=== PATIENT | male | born 1970 | race Caucasian/White ===

== ENCOUNTER 2019-06-15 09:32 | Inpatient (IN) ==
[2019-06-15] MEDS ORDERED: *HR* Heparin 5,000 UNIT/ML VIAL ONE (09:53)
[2019-06-15] MEDS ORDERED: Aspirin 81 MG TAB.CHEW ONE (09:53)
[2019-06-15] MEDS ORDERED: *HR* Ticagrelor 90 MG TABLET ONE (09:53)
[2019-06-15] MEDS ORDERED: 0.9 % Sodium Chloride 1,000 ML ONE ×2 (09:53→10:06)
[2019-06-15] MEDS ORDERED: Aspirin 81 MG TAB.CHEW PO ONE (09:58)
[2019-06-15] MEDS ORDERED: *HR* Midazolam HCl 2 MG/2 ML VIAL ONE (10:06)
[2019-06-15] MEDS ORDERED: *HR* Heparin 10,000 UNIT/10 ML VIAL ONE (10:06)
[2019-06-15] MEDS ORDERED: *HR* FentaNYL (PF) 100 MCG/2 ML VIAL ONE (10:06)
[2019-06-15] MEDS ORDERED: Heparin 1,000 UNITS/500 mL 500 ML ONE (10:06)
[2019-06-15] MEDS ORDERED: Nitroglycerin 1,000 MCG/10 ML VIAL IV ONE (10:06)
[2019-06-15] MEDS ORDERED: Iopamidol 125 ML INFUS..BTL ONE (10:06)
[2019-06-15 10:14] LABS: Basophils # 0.1 K/mcL (0.0-0.2); Basophils % 0.4 %; Eosinophils # 0.5 K/mcL (0.0-0.6); Eosinophils % 3.4 %; Hematocrit 35.2 % (37.5-50.1); Hemoglobin 11.1 g/dL (12.9-16.9); Immature Granulocytes % 1.4 % (0-4); Lymphocytes # 0.8 K/mcL (0.6-4.6); Mean Corpuscular HGB Conc 31.5 g/dL (31.6-35.5); Mean Corpuscular Hemoglobin 29.4 pg (28.0-33.3); Mean Corpuscular Volume 93.1 fL (83.0-100.0); Mean Platelet Volume 8.3 fL (9.4-12.4); Monocytes # 1.2 K/mcL (0.0-1.3); Neutrophils # 10.9 K/mcL (1.6-8.9); Platelet Count 382 K/mcL (140-400); Red Blood Count 3.78 M/mcL (4.19-5.50); Segmented Neutrophils % 79.8 %; White Blood Count 13.7 K/mcL (4.3-11.1)
[2019-06-15] MEDS ORDERED: Tirofiban 12.5 MG/250ML 12.5 MG/250 ML BAG ONE (10:17)
[2019-06-15 10:23] LABS: Prothrombin Time 10.9 Seconds (9.4-12.1)
[2019-06-15 10:26] LABS: Activated Partial Thrombo Time 35.9 Seconds (26.0-36.0)
[2019-06-15] MEDS ORDERED: *HR* Heparin 5,000 UNIT/ML VIAL IVP ONE (10:27)
[2019-06-15] MEDS ORDERED: *HR* Heparin 5,000 UNIT/ML VIAL IVP PRN ×2 (10:27)
[2019-06-15] MEDS ORDERED: Heparin 25,000 UNIT/250 ML D5W 25,000 UNIT/250 ML IV.SOLN IVC ONE (10:30)
[2019-06-15 10:33] LABS: BUN/Creatinine Ratio 25 (6-26); Blood Urea Nitrogen 29 mg/dL (6-20); Calcium 10.6 mg/dL (8.6-10.3); Carbon Dioxide 24 mEq/L (23-29); Chloride 107 mEq/L (98-107); Glucose 113 mg/dL (70-105); Magnesium 2.3 mg/dL (1.6-2.6); Osmolality,Calculated 293 (280-300); Potassium 4.8 mEq/L (3.5-5.1); Sodium 138 mEq/L (136-145); Troponin I < 0.03 ng/mL (< 0.04); eGFR For African Americans > 60 (> 60); eGFR For Non-African Americans > 60 (> 60)
[2019-06-15] MEDS: Heparin 25,000 UNIT/250 ML D5W 25,000 UNIT/250 ML IV.SOLN IVC SCH (10:38)
--- NOTE | 2019-06-15 10:42 | Emergency Department Note ---
Disposition Clinical Impression: Acute electrocardiogram changes [place] toxicity Qualifiers: Encounter type: sequela Injury intent: undetermined intent Qualified Code(s): T56.894S - Toxic effect of other metals, undetermined, sequela Disposition: Admitted As Inpatient Condition: Fair Time of Disposition: 13:56 General Adult HPI - General Chief complaint: ED Neuro Symptoms/Deficit Stated complaint: AMS Time Seen by Provider: 06/15/19 09:40 Source: patient, other Mode of arrival: wheelchair Limitations: no limitations Nursing Notes Reviewed: Yes Vital Signs Reviewed: Yes - History of Present Illness HPI Narrative: Patient is a 48-year-old male that presents the emergency department with reports of not acting his usual self and complaining of abdominal and chest pain. Patient was seen at urgent care and was transferred here to the emergency department. The patient has a history of MRDD is unable to provide any significant history. The employee of the [place] [facility] that he states that stated that this morning he was not acting himself and was not getting ready for the day like he usually did. When asked if he is having any pain the patient puts his hand over his chest. It is also reported from the staff that he had been complaining of abdominal pain. Also reported that he has had some urinary incontinence. Patient does have a history of seizures and schizophrenia and does have episodes where he stares off and does not respond to staff at his [place] [facility]. Pain Scale: 4 - Related Data Home Medications Medication Instructions Recorded Confirmed Famotidine [Pepcid] 20 mg PO BID 05/30/15 01/03/18 Ferrous Sulfate 325 mg PO BID 05/30/15 01/03/18 Folic Acid 1 mg PO DAILY 05/30/15 01/03/18 Haloperidol [Haldol] 5 mg PO DAILY PRN 05/30/15 01/03/18 Lisinopril [Prinivil] 10 mg PO DAILY 05/30/15 01/03/18 Oxybutynin [Ditropan] 5 mg PO BID 05/30/15 01/03/18 Pravastatin Sodium [Pravachol] 80 mg PO DAILY 05/30/15 01/03/18 Acetaminophen [Tylenol] 650 mg PO Q4H PRN 01/03/18 01/03/18 BuPROPion XL (24 HR) [Wellbutrin 300 mg PO DAILY 03/15/18 08/25/19 Xl] Cetirizine HCl [Zyrtec] 10 mg PO DAILY 01/03/18 06/15/19 Cholecalciferol (D-3) [Vitamin D] 2,000 unit PO DAILY 01/03/18 01/03/18 Haloperidol Decanoate [Haldol 100 mg IM Q2W 01/03/18 01/03/18 Decanoate 100] Ibuprofen [Motrin Ib] 400 mg PO Q4H PRN 01/03/18 01/03/18 L. Rhamnosus GG/Inulin [Culturelle 1 tab PO DAILY 01/03/18 01/03/18 Capsule] [place] Carbonate 600 mg PO BID 01/03/18 01/03/18 Loperamide [Imodium] 2 mg PO DAILY PRN 01/03/18 01/03/18 Mag Hydrox/Al Hydrox/Simeth [Adv 30 ml PO 6XD 01/03/18 01/03/18 Antacid-Antigas Liquid] OLANZapine [Zyprexa] 5 mg PO QAM 01/03/18 01/03/18 OLANZapine [Zyprexa] 15 mg PO HS 01/03/18 01/03/18 OXcarbazepine [Oxcarbazepine] 600 mg PO BID 01/03/18 01/03/18 Polyethylene Glycol 3350 [MiraLAX 1 scoop PO DAILY 01/03/18 01/03/18 Powder Bulk 17.9 Oz] Previous Rx's Medication Instructions Recorded Docusate Sodium [Colace] 100 mg PO BID #14 capsule 03/19/16 Allergies Allergy/AdvReac Type Severity Reaction Status Date / Time No Known Allergies Allergy Verified 05/30/15 21:53 All systems ED: reviewed and negative except as stated. Limitations: ROS unobtainable due to patients medical condition Constitutional: Denies: fever Cardiovascular: Reports: chest pain Past Medical History - Past Medical History Medical history: Reports: asthma, diabetes, GERD, hyperlipidemia, hypertension, seizures Psychiatric history: Reports: depression, schizophrenia - Social History Smoking Status: Current every day smoker Smokeless Tobacco Status: No Alcohol use: Reports: unknown Drug use: Reports: none Physical Exam - General Limitations: no limitations General appearance: alert, in no apparent distress - Head Head exam: atraumatic, normocephalic - Eye Eye exam: Present: normal appearance, EOMI - Neck Neck exam: Present: normal inspection, full ROM, trachea midline - Respiratory Respiratory exam: Present: normal lung sounds bilaterally. Absent: respiratory distress, wheezes - Cardiovascular Cardiovascular exam: Present: regular rate, normal rhythm, normal heart sounds, +S1, +S2 - Abdominal Exam Abdominal exam: Present: soft, Non-Tender, normal bowel sounds - Neurological Exam Neurological exam: Present: alert, oriented X3 - Psychiatric Psychiatric exam: Present: normal affect, normal mood - Skin Skin exam: Present: warm, dry, intact Course Vital Signs Temperature 98.6 F 06/15/19 09:36 Pulse Rate 77 06/15/19 09:36 Respiratory Rate 19 06/15/19 09:36 Blood Pressure 125/75 06/15/19 09:36 O2 Sat by Pulse Oximetry 99 06/15/19 09:36 Temperature 98.6 F 06/15/19 09:54 Pulse Rate 73 06/15/19 13:00 Respiratory Rate 17 06/15/19 13:00 Blood Pressure 117/72 06/15/19 13:00 O2 Sat by Pulse Oximetry 95 06/15/19 13:00 Oxygen Delivery Oxygen Delivery Room Air Medical Decision Making - MDM Narrative Medical decision making narrative: Due the patient is not emergency Department with reports of chest pain and EKG was obtained at triage which was concerning for possible STEMI. STEMI alert was called. Dr. Conteh was contacted and he came and evaluated the patient and did not feel that at this time the patient needed to go to the Embryology Teacher emergently but would review the patient's labs and potentially take him for a diagnostic catheter later today. Patient received aspirin and heparin at the recommendation of cardiology. Further laboratory testing and chest x-ray will be obtained. Patient checks x-ray shows a groundglass appearance which could be an underlying pneumonitis. The dot compliance specialist and requested that a repeat troponin was obtained at 1400. This was placed in [facility]. The patient does have an elevated lithium level 2.0. This is discussed with nephrology did not feel that he needed to be dialyzed at this time and recommended just hydration. Patient will be admitted to the medical service and nephrology has been consulted. Patient does have a mild leukocytosis and a chronic anemia. Called and spoke with the admitting hospitalist Dr. Bermoe who had reviewed the case and had spoken to cardiology and has accepted the patient to their service. Patient be admitted to the hospital this time for further evaluation and management. - Medical Records Medical records reviewed: Yes I reviewed the patient's medical records. - Lab Data Lab results reviewed: Yes I reviewed the patient's lab results. Result diagrams: 06/15/19 09:50 06/15/19 09:50 Lab Results 06/15/19 06/15/19 06/15/19 Range/Units 09:50 09:50 09:50 WBC 13.7 H (4.3-11.1) K/mcL RBC 3.78 L (4.19-5.50) M/mcL Hgb 11.1 L (12.9-16.9) g/dL Hct 35.2 L (37.5-50.1) % MCV 93.1 (83.0-100.0) fL MCH 29.4 (28.0-33.3) pg MCHC 31.5 L (31.6-35.5) g/dL RDW 15.0 H (11.5-14.5) % Plt Count 382 (140-400) K/mcL MPV 8.3 L (9.4-12.4) fL Immature Gran % 1.4 (0-4) % Seg Neutrophils % 79.8 % Lymphocytes % 6.0 % Monocytes % 9.0 % Eosinophils % 3.4 % Basophils % 0.4 % Neutrophils # 10.9 H (1.6-8.9) K/mcL Lymphocytes # 0.8 (0.6-4.6) K/mcL Monocytes # 1.2 (0.0-1.3) K/mcL Eosinophils # 0.5 (0.0-0.6) K/mcL Basophils # 0.1 (0.0-0.2) K/mcL PT 10.9 (9.4-12.1) Seconds INR 1.0 APTT 35.9 (26.0-36.0) Seconds Heparin Anti-Xa, Unfract (0.30-0.70) IU/mL Sodium 138 (136-145) mEq/L Potassium 4.8 (3.5-5.1) mEq/L Chloride 107 (98-107) mEq/L Carbon Dioxide 24 (23-29) mEq/L BUN 29 H (6-20) mg/dL Creatinine 1.15 (0.70-1.30) mg/dL Est GFR ( Amer) > 60 (> 60) Est GFR (Non-Af Amer) > 60 (> 60) BUN/Creatinine Ratio 25 (6-26) Glucose 113 H (70-105) mg/dL Calculated Osmolality 293 (280-300) Lactic Acid (0.5-2.2) mmol/L Calcium 10.6 H (8.6-10.3) mg/dL Magnesium 2.3 (1.6-2.6) mg/dL Troponin I < 0.03 (< 0.04) ng/mL Procalcitonin (0.00-0.15) ng/mL TSH 6.154 H (0.340-5.600) mcIU/mL Free T4 0.68 L (0.70-2.00) ng/dl Free T3 2.69 (2.50-3.90) pg/mL Total T3 1.02 (0.87-1.78) ng/mL Urine Color (Yellow) Urine Clarity (Clear) Urine pH (5.0-8.0) pH Units Ur Specific [place] (1.010-1.025) Urine Protein (Neg-Trace) mg/dL Urine Glucose (UA) (Normal) mg/dL Urine Ketones (Negative) mg/dL Urine Blood (Negative) Urine Nitrite (Negative) Urine Bilirubin (Negative) Urine Urobilinogen (Normal) mg/dL Ur Leukocyte Esterase (Negative) Urine Microscopic RBC (0-3) per hpf Urine Microscopic WBC (0-3) per hpf Ur Squamous Epith Cells (None-Few) per lpf Urine Bacteria (None-Few) per hpf Hyaline Casts (None-Few) per lpf Ur Culture Indicated? (NO) [place] (0.6-1.2) mEq/L 06/15/19 06/15/19 06/15/19 Range/Units 09:50 09:50 09:50 WBC (4.3-11.1) K/mcL RBC (4.19-5.50) M/mcL Hgb (12.9-16.9) g/dL Hct (37.5-50.1) % MCV (83.0-100.0) fL MCH (28.0-33.3) pg MCHC (31.6-35.5) g/dL RDW (11.5-14.5) % Plt Count (140-400) K/mcL MPV (9.4-12.4) fL Immature Gran % (0-4) % Seg Neutrophils % % Lymphocytes % % Monocytes % % Eosinophils % % Basophils % % Neutrophils # (1.6-8.9) K/mcL Lymphocytes # (0.6-4.6) K/mcL Monocytes # (0.0-1.3) K/mcL Eosinophils # (0.0-0.6) K/mcL Basophils # (0.0-0.2) K/mcL PT (9.4-12.1) Seconds INR APTT (26.0-36.0) Seconds Heparin Anti-Xa, Unfract 0.04 L (0.30-0.70) IU/mL Sodium (136-145) mEq/L Potassium (3.5-5.1) mEq/L Chloride (98-107) mEq/L Carbon Dioxide (23-29) mEq/L BUN (6-20) mg/dL Creatinine (0.70-1.30) mg/dL Est GFR ( Amer) (> 60) Est GFR (Non-Af Amer) (> 60) BUN/Creatinine Ratio (6-26) Glucose (70-105) mg/dL Calculated Osmolality (280-300) Lactic Acid 1.1 (0.5-2.2) mmol/L Calcium (8.6-10.3) mg/dL Magnesium (1.6-2.6) mg/dL Troponin I (< 0.04) ng/mL Procalcitonin < 0.02 (0.00-0.15) ng/mL TSH (0.340-5.600) mcIU/mL Free T4 (0.70-2.00) ng/dl Free T3 (2.50-3.90) pg/mL Total T3 (0.87-1.78) ng/mL Urine Color (Yellow) Urine Clarity (Clear) Urine pH (5.0-8.0) pH Units Ur Specific [place] (1.010-1.025) Urine Protein (Neg-Trace) mg/dL Urine Glucose (UA) (Normal) mg/dL Urine Ketones (Negative) mg/dL Urine Blood (Negative) Urine Nitrite (Negative) Urine Bilirubin (Negative) Urine Urobilinogen (Normal) mg/dL Ur Leukocyte Esterase (Negative) Urine Microscopic RBC (0-3) per hpf Urine Microscopic WBC (0-3) per hpf Ur Squamous Epith Cells (None-Few) per lpf Urine Bacteria (None-Few) per hpf Hyaline Casts (None-Few) per lpf Ur Culture Indicated? (NO) [place] 2.0 H* (0.6-1.2) mEq/L 06/15/19 Range/Units 10:20 WBC (4.3-11.1) K/mcL RBC (4.19-5.50) M/mcL Hgb (12.9-16.9) g/dL Hct (37.5-50.1) % MCV (83.0-100.0) fL MCH (28.0-33.3) pg MCHC (31.6-35.5) g/dL RDW (11.5-14.5) % Plt Count (140-400) K/mcL MPV (9.4-12.4) fL Immature Gran % (0-4) % Seg Neutrophils % % Lymphocytes % % Monocytes % % Eosinophils % % Basophils % % Neutrophils # (1.6-8.9) K/mcL Lymphocytes # (0.6-4.6) K/mcL Monocytes # (0.0-1.3) K/mcL Eosinophils # (0.0-0.6) K/mcL Basophils # (0.0-0.2) K/mcL PT (9.4-12.1) Seconds INR APTT (26.0-36.0) Seconds Heparin Anti-Xa, Unfract (0.30-0.70) IU/mL Sodium (136-145) mEq/L Potassium (3.5-5.1) mEq/L Chloride (98-107) mEq/L Carbon Dioxide (23-29) mEq/L BUN (6-20) mg/dL Creatinine (0.70-1.30) mg/dL Est GFR ( Amer) (> 60) Est GFR (Non-Af Amer) (> 60) BUN/Creatinine Ratio (6-26) Glucose (70-105) mg/dL Calculated Osmolality (280-300) Lactic Acid (0.5-2.2) mmol/L Calcium (8.6-10.3) mg/dL Magnesium (1.6-2.6) mg/dL Troponin I (< 0.04) ng/mL Procalcitonin (0.00-0.15) ng/mL TSH (0.340-5.600) mcIU/mL Free T4 (0.70-2.00) ng/dl Free T3 (2.50-3.90) pg/mL Total T3 (0.87-1.78) ng/mL Urine Color Yellow (Yellow) Urine Clarity Clear (Clear) Urine pH 6.5 (5.0-8.0) pH Units Ur Specific [place] 1.014 (1.010-1.025) Urine Protein Negative (Neg-Trace) mg/dL Urine Glucose (UA) Normal (Normal) mg/dL Urine Ketones Negative (Negative) mg/dL Urine Blood Small H (Negative) Urine Nitrite Negative (Negative) Urine Bilirubin Negative (Negative) Urine Urobilinogen Normal (Normal) mg/dL Ur Leukocyte Esterase Negative (Negative) Urine Microscopic RBC 5-15 H (0-3) per hpf Urine Microscopic WBC 0-3 (0-3) per hpf Ur Squamous Epith Cells Moderate H (None-Few) per lpf Urine Bacteria None Seen (None-Few) per hpf Hyaline Casts None Seen (None-Few) per lpf Ur Culture Indicated? NO (NO) [place] (0.6-1.2) mEq/L - Radiology Data Radiology results reviewed: Yes I reviewed the patient's radiology results. Chest X-Ray 06/15/19 10:25 IMPRESSION: Cardiomegaly with mild asymmetric ground-glass opacification at the left lung base. Pattern suspected to represent asymmetric edema or atelectasis. Underlying pneumonitis would be considered less likely. D/ / Frandy Johnson MD / Frandy Johnson MD Interpreting Provider: Frandy Johnson MD Head CT 06/15/19 10:52 IMPRESSION: 1. No acute intracranial abnormality. 2. New right mastoid effusion with unchanged left mastoid effusion. Unchanged ethmoid sinus disease. D/ / Lb Jorge MD / Lb Jorge MD Interpreting Provider: Lb Jorge MD - EKG Data EKG #1 EKG attestation: Yes I reviewed and interpreted this EKG. EKG results narrative: Patient's EKG showed a sinus rhythm with a right bundle branch block and rate of 76 bpm, DE interval 197, curious duration 155, QTC of 463. There is ST elevations in 2, 3, aVF, V4, V5. This is compared to previous EKG Attestation Statement - Attestation Attestation: I, Cristian Bradford, examined this patient and my medical decision-making was reviewed with the ROR ENGINEER/PA/Advanced Practice Nurse/Resident Physician. I agree with the documented findings, disposition and treatment plan as described except to the extent set forth below. 48-year-old male presents emergency Department with concerns of altered mental status. Patient is from a [place] [facility] and is generally able to ambulate and dress himself. Over the past few days he has had increasing confusion. Today they noticed that he has had incontinence of urine over the night, he has been more confused than his baseline. On initial evaluation the patient had EKG that showed ST elevations in the inferior and lateral leads without corresponding ST depressions. When asked about chest pain the patient grabbed his chest, he had been nauseated and vomited a couple times during the morning prior to arrival. A STEMI alert was activated, cardiology evaluated the patient at bedside and believe that this is did not meet STEMI criteria however patient does have risk factors and will likely need heart catheterization in the near future. Initial troponin returned negative. Vital signs remained stable. Patient has an elevated lithium level which could cause the EKG changes as well as the patient's altered mental status. Patient does not have renal failure. I spoke with the programming equipment operator, Dr. Matta who recommended hydration with IV fluids and reevaluation and that the patient did not need dialysis at this time. Patient will be admitted to the hospitalist for further care and evaluation.
[2019-06-15 11:13] LABS: Bilirubin,Urine Negative (Negative); Blood,Urine Small (Negative); Clarity,Urine Clear (Clear); Color,Urine Yellow (Yellow); Glucose,Urine (UA) Normal (Normal); Ketones,Urine Negative (Negative); Leukocyte Esterase,Urine Negative (Negative); Nitrite,Urine Negative (Negative); PH,Urine 6.5 pH Units (5.0-8.0); Protein,Urine Negative (Neg-Trace); Specific Gravity,Urine 1.014 (1.010-1.025); Urobilinogen,Urine Normal (Normal)
[2019-06-15 11:15] LABS: Bacteria,Urine None Seen per hpf (None-Few); Hyaline Casts,Urine None Seen per lpf (None-Few); Squamous Epithelial Cell,Urine Moderate per lpf (None-Few); WBC,Urine 0-3 per hpf (0-3)
[2019-06-15 11:33] LABS: Procalcitonin < 0.02 ng/mL (0.00-0.15)
--- NOTE | 2019-06-15 11:34 | Cardiology Consult Note ---
Date of Encounter: 06/15/19 Time of Encounter: 11:29 Assessment and Plan (1) Chest pain Current Visit: Yes Status: Acute Altered mental status over the last 3 days with some tinting of pain generalized and specifically chest pain in the setting of a slightly worsened EKG from an ischemic standpoint but no criteria for ST elevation by cardiac infarction. With negative troponin after 3 days of generalized unwellness the emergency department would rather workup further possibilities of sepsis. A repeat troponin 3 hours will be obtained and if elevated or if patient's clinical course changes in regards to EKG changes or worsening chest pain patient will be taken emergently to the cardiac [facility] [employer]. He will remain nothing by mouth at this time. Last question of chest pain patient denied any at bedside with caregiver at side. Qualifiers: Chest pain type: unspecified Qualified Code(s): R07.9 - Chest pain, unspecified Discussion w patient/family: The assessment and plan as outlined above was discussed with the patient and/or family members who expressed understanding and agreement. All questions were answered. Thank you for involving us in the care of your patient. Please call with any questions. History of Present Illness Consult date: 06/15/19 Consult reason: Abnormal EKG Chief complaint: Chest Pain History of present illness: Mr. Boucher is a 48 year old male was history of MR is a poor historian with multiple comorbidities including diet-controlled diabetes, hypertension, hyperlipidemia who presents to the emergency department after not being himself slightly more altered in regards to his mental status over the last 3 days at times complaining of chest pain according to caregivers at bedside. Patient is EKG shows right bundle branch block with slightly more prominent ST changes from baseline. There is no significant criteria for an ST elevation myocardial infarction at this time. Patient was asked multiple times if he had chest pain at bedside and denied. Initially patient was to be taken immediately to the cardiac [facility] however further discussion with [facility] department in regards to an elevated white blood count and is feeling unwellness over the last 3 days prompted a sepsis panel and further workup especially in the setting of a returned negative troponin. I am asked emergency department to repeat a t roponin in 3 hours and if abnormal patient will be taken to the cardiac catheter lab if not contraindicated by the workup for his possible sepsis. Past Med Surg Social Fam HX - Past Medical History Medical history: asthma, diabetes, GERD, hyperlipidemia, hypertension, seizures Additional medical history: mild intellectual disability. Vit D Deficiency. schizophrenia. Urinary Frequency/OAB. Asthma. KYRA. Consipation. Dry eyes. Depression Psychiatric history: depression, schizophrenia - Past Surgical History Additional surgical history: toe unsure. right leg 2009. tonsillectomy as child. umbilical hernia repair 2009. appendectomy 2011. appendectomy and right hemicoletomy 2012. incisional hernia repair 2013 - Social History Smoking Status: Current every day smoker Smokeless Tobacco Status: No Alcohol use: unknown Drug use: none Medications and Allergies Famotidine [Pepcid] 20 mg PO BID 05/30/15 [History] Ferrous Sulfate 325 mg PO BID 05/30/15 [History] Folic Acid 1 mg PO DAILY 05/30/15 [History] Haloperidol [Haldol] 5 mg PO DAILY PRN 05/30/15 [History] Lisinopril [Prinivil] 10 mg PO DAILY 05/30/15 [History] Oxybutynin [Ditropan] 5 mg PO BID 05/30/15 [History] Pravastatin Sodium [Pravachol] 80 mg PO DAILY 05/30/15 [History] Docusate Sodium [Colace] 100 mg PO BID #14 capsule 03/19/16 [Rx] Acetaminophen [Tylenol] 650 mg PO Q4H PRN 01/03/18 [History] BuPROPion XL (24 HR) [Wellbutrin Xl] 300 mg PO DAILY 01/03/18 [History] Cetirizine HCl [Zyrtec] 10 mg PO DAILY 01/03/18 [History] Cholecalciferol (D-3) [Vitamin D] 2,000 unit PO DAILY 01/03/18 [History] Haloperidol Decanoate [Haldol Decanoate 100] 100 mg IM Q2W 01/03/18 [History] Ibuprofen [Motrin Ib] 400 mg PO Q4H PRN 01/03/18 [History] L. Rhamnosus GG/Inulin [Culturelle Capsule] 1 tab PO DAILY 01/03/18 [History] [place] Carbonate 600 mg PO BID 01/03/18 [History] Loperamide [Imodium] 2 mg PO DAILY PRN 01/03/18 [History] Mag Hydrox/Al Hydrox/Simeth [Adv Antacid-Antigas Liquid] 30 ml PO 6XD 01/03/18 [History] OLANZapine [Zyprexa] 5 mg PO QAM 01/03/18 [History] OLANZapine [Zyprexa] 15 mg PO HS 01/03/18 [History] OXcarbazepine [Oxcarbazepine] 600 mg PO BID 01/03/18 [History] Polyethylene Glycol 3350 [MiraLAX Powder Bulk 17.9 Oz] 1 scoop PO DAILY 01/03/18 [History] Allergy/AdvReac Type Severity Reaction Status Date / Time No Known Allergies Allergy Verified 05/30/15 21:53 All Systems Review: The remainder of the systems were reviewed and are negative Physical Examination Vital Signs, Last 4 Hours Temp Pulse Resp BP Pulse Ox 06/15/19 10:44 98 06/15/19 10:30 70 15 111/78 99 06/15/19 10:27 72 10 115/76 97 06/15/19 10:00 80 20 121/75 96 06/15/19 09:54 98.6 F 77 19 125/75 98 06/15/19 09:52 77 19 125/75 98 06/15/19 09:50 72 120/68 06/15/19 09:36 98.6 F 77 19 125/75 99 General: Conversant, No Apparent Distress HEENT: Atraumatic, Normocephaly, Mucus Membranes Moist Neck: No JVD, Normal carotid pulses Cardiac: Reg Rate and Rhythm, Normal S1 and S2, No Murmur Lungs: Normal Breath Sounds, No Wheeze, Rales, Rhonchi Neuro: Alert and responsive, No focal deficits noted Abdomen: Soft, Non-Tender Skin: No rashes noted on visualized skin Musculoskeletal: No Chest Wall Tenderness Extremities: No Clubbing, No Cyanosis, No Edema, Normal Pulses Results 06/15/19 09:50 06/15/19 09:50 Lab Results 06/15/19 06/15/19 06/15/19 09:50 09:50 09:50 WBC 13.7 H Hgb 11.1 L Hct 35.2 L Plt Count 382 INR 1.0 APTT 35.9 Sodium 138 Potassium 4.8 Chloride 107 Carbon Dioxide 24 BUN 29 H Creatinine 1.15 Glucose 113 H Calcium 10.6 H Magnesium 2.3 Troponin I < 0.03 Consult Discharge Plan - Plan
[2019-06-15] MEDS ORDERED: 0.9 % Sodium Chloride 1,000 ML IVC ONE (12:01)
[2019-06-15 12:30] LABS: Thyroid Stimulating Hormone 6.154 mcIU/mL (0.340-5.600)
[2019-06-15 12:33] LABS: Triiodothyronine (T3) Free 2.69 pg/mL (2.50-3.90)
[2019-06-15 12:37] LABS: Triiodothyronine (T3) Total 1.02 ng/mL (0.87-1.78)
[2019-06-15] MEDS ORDERED: Nitroglycerin 0.4 MG TAB.SUBL SL PRN (14:09)
[2019-06-15] MEDS ORDERED: Naloxone 0.4 MG/ML INJ IVP PRN (14:10)
[2019-06-15] MEDS ORDERED: *HR* LORazepam 2 MG/ML VIAL IVP PRN (14:43)
--- NOTE | 2019-06-15 15:20 | Internal Med History&Physical ---
<Anne Puri - Last Filed: 06/15/19 16:31> Date of Encounter: 06/15/19 Internal Medicine - H&P: HPI History of present illness: Mr. Boucher is a 48 year old male Internal Medicine - H&P: Meds Famotidine [Pepcid] 20 mg PO BID 05/30/15 [History] Ferrous Sulfate 325 mg PO BID 05/30/15 [History] Folic Acid 1 mg PO DAILY 05/30/15 [History] Haloperidol [Haldol] 5 mg PO DAILY PRN 05/30/15 [History] Lisinopril [Prinivil] 10 mg PO DAILY 05/30/15 [History] Oxybutynin [Ditropan] 5 mg PO BID 05/30/15 [History] Pravastatin Sodium [Pravachol] 80 mg PO DAILY 05/30/15 [History] Docusate Sodium [Colace] 100 mg PO BID #14 capsule 03/19/16 [Rx] Acetaminophen [Tylenol] 650 mg PO Q4H PRN 01/03/18 [History] BuPROPion XL (24 HR) [Wellbutrin Xl] 300 mg PO DAILY 01/03/18 [History] Cetirizine HCl [Zyrtec] 10 mg PO DAILY 01/03/18 [History] Cholecalciferol (D-3) [Vitamin D] 2,000 unit PO DAILY 01/03/18 [History] Haloperidol Decanoate [Haldol Decanoate 100] 100 mg IM Q2W 01/03/18 [History] Ibuprofen [Motrin Ib] 400 mg PO Q4H PRN 01/03/18 [History] L. Rhamnosus GG/Inulin [Culturelle Capsule] 1 tab PO DAILY 01/03/18 [History] Eugenio Saenz Carbonate 600 mg PO BID 01/03/18 [History] Loperamide [Imodium] 2 mg PO DAILY PRN 01/03/18 [History] Mag Hydrox/Al Hydrox/Simeth [Adv Antacid-Antigas Liquid] 30 ml PO 6XD 01/03/18 [History] OLANZapine [Zyprexa] 5 mg PO QAM 01/03/18 [History] OLANZapine [Zyprexa] 15 mg PO HS 01/03/18 [History] OXcarbazepine [Oxcarbazepine] 600 mg PO BID 01/03/18 [History] Polyethylene Glycol 3350 [MiraLAX Powder Bulk 17.9 Oz] 1 scoop PO DAILY 01/03/18 [History] Allergy/AdvReac Type Severity Reaction Status Date / Time No Known Allergies Allergy Verified 05/30/15 21:53 All Systems PM: A 10-system review of systems was performed and is negative for pertinent findings except as documented above in the HPI. - Constitutional Vitals: Temp Pulse Resp BP Pulse Ox 98.6 F 82 14 126/81 96 06/15/19 09:54 06/15/19 16:21 06/15/19 16:21 06/15/19 16:21 06/15/19 16:21 Internal Med - H&P Results - Labs CBC & Chem 7: 06/15/19 09:50 06/15/19 09:50 Labs: Short CBC 06/15/19 Range/Units 09:50 WBC 13.7 H (4.3-11.1) K/mcL Hgb 11.1 L (12.9-16.9) g/dL Hct 35.2 L (37.5-50.1) % Plt Count 382 (140-400) K/mcL Neutrophils # 10.9 H (1.6-8.9) K/mcL BMP 06/15/19 09:50 Sodium 138 Potassium 4.8 Chloride 107 Carbon Dioxide 24 BUN 29 H Creatinine 1.15 Glucose 113 H Calcium 10.6 H Cardiac Enzymes 06/15/19 06/15/19 Range/Units 09:50 14:41 Troponin I < 0.03 < 0.03 (< 0.04) ng/mL Urine 06/15/19 Range/Units 10:20 Urine Color Yellow (Yellow) Urine Clarity Clear (Clear) Urine pH 6.5 (5.0-8.0) pH Units Ur Specific Luana 1.014 (1.010-1.025) Urine Protein Negative (Neg-Trace) mg/dL Urine Glucose (UA) Normal (Normal) mg/dL - Impressions ITS Impressions Chest X-Ray 06/15/19 10:25 IMPRESSION: Cardiomegaly with mild asymmetric ground-glass opacification at the left lung base. Pattern suspected to represent asymmetric edema or atelectasis. Underlying pneumonitis would be considered less likely. D/ / Frandy Johnson MD / Frandy Johnson MD Interpreting Provider: Frandy Johnson MD Head CT 06/15/19 10:52 IMPRESSION: 1. No acute intracranial abnormality. 2. New right mastoid effusion with unchanged left mastoid effusion. Unchanged ethmoid sinus disease. D/ / Lb Jorge MD / Lb Jorge MD Interpreting Provider: Lb Jorge MD - Time Spent With Patient Total time spent is greater than 50% in coordination of care (as documented) at patient's floor/unit and/or counseling patient: - Attending Attestation I examined this patient and my medical decision-making was reviewed with the Resident Physician Dr Medrano. I agree with the documented findings, di sposition and treatment plan as described except to the extent set forth below. Mr Boucher is being observed for NSTEMI, Encephaloapthy and possible lithium toxicity awake, most of info from custodial aide whom is with him. Cheange in mentation is sluggish activity level and less talkative. Currently improved. Noted since yesterday and throughout day today. She has never witnessed him having a seziure. eye fluttering/staring spells at group hoome today and here brief, less <30 sec and returned to interactive immediately following. He c/o cp which is since gone and abd pain also relived. She denies any diarrhea. has hx constipation. no emesis. Pt answers his name. Points to cp being previously substernal and left chest. He states his left arm hurt and throat hurt when asked. denied back pain at that time. Admits to being sob at that time. Sitter notes him being diaphoretic then. Abd pain he points ot was LUQ, now gone. gen- alert, awake,appears stated age, nad eyes- pupils equal round , eom intact, no nystagmus cv- reg rate and rhythm, normal s1,s2, no murmurs appreciated, no le edema, no jvd, warm ext lungs- ctabl, no wheezing, rhonchi or crackles, normal resp effort on o2 nc abd- soft, non tender, mildly distended, no HSM appreciated, + bs neuro- AAOxperson, does not answer questions regarding place/situation (would not know date at baseline) CN grossly intact, 4/5 strength thoughout all extremities, speech is at his baseline per caregiver, follows all commands Acute Encephalopathy (present about 24 hrs) DDX at this time includes related to NSTEMI, Possible Mild Eugenio Saenz Toxicity, Seizure, with infection or CVA being less likely given clinical picture/work up thus far and exam Baseline mentation is will answer his name, would not know date or location, typically answers questions but when mad will stare and not answer, is independent in ADLs, does NOT administer his own meds [facility] confirmed he is his own decision maker and is a Full code status CT head neg -NSTEMI tx as below -Neuro consulted- will repeat lithium level in am and check EEG in am -lithium treatment as below -neuro checks Chest Pain, currently pain free EKG with ischemic changes inferiorly, RBBB, LAFB, QTc 463 trop negative, second negative as well STEMI alert was called in ED - Dr Conteh saw pt in ED, EKG appears STEMI but some ST elevations present on prior EKG, keep npo, may go for LHC this afternoon -tele, nitro prn, check echo, am ekg, trend trops -has received asa, cont hep gtt Hx Seizures New onset staring spells/eye fluttering -cont home trileptal, seizure precautions, prn ativan seizure -Dr Rodas will see tomorrow, EEG in AM Possible Eugenio Saenz Toxicity, Mild with Eugenio Saenz level 2 -hold lithium (for schizophrenia), daily lithium levels -neuro and nephro are on board -Dr Bradford has d/w Dr Matta- no emergent HD, giving IVFs -monitor his mildly prolonged QTc, tele Leukocytosis suspect may be reactive as infectious work up negative CXR neg, UA neg, procal neg -will cont to monitor for s/s of infection, no abx at this time Hypercalcemia 10.6- most recently 10.3 in March- IVFs and monitor Chronic anemia at baseline- monitor hgb on hep gtt Elevated TSH, low T4, not noted as dx at custodial or being treated but prior TSH in March similar- this could be influenced by lithium level- do not begin tx at this time, will need repeat level in outpt setting Tobacco dependence (smokes nearly hourly)- nicotine patch Chronic Conditions: gerd-famotidine asthma- no home meds/inhalers constipation-miralax daily, colace BID schizophrenia/depression-holding lithium, cont zyprexa, wellbutrin; additionally he is on Haldol Dec q 2 w, monitor qtc, may not be able to cont zyprexa if worsens, will get psych consult as needed KYRA not on cpap overactive bladder-oxybutinin pre DM- not on any meds/insulin, gets accu check q sunday, checking a1c HTN- acei HLD- statin <Mariama Medrano L - Last Filed: 06/15/19 22:56> Date of Encounter: 06/15/19 Time of Encounter: 14:30 Internal Medicine - H&P: HPI Chief complaint: chest pain History of present illness: Mr. Boucher is a 48 year old male with PMH of schizophrenia, seizures, MRDD presents with complaint of chest pain and abdominal pain. Patient currently presents with [facility] home health. Patient is unable to give plain history currently. [facility] home health states that since yesterday patient has had a change in mental status. She states that he has not been himself he has had episodes of nocturnal enuresis, inappropriately answering questions, and has episodes of speaking incoherently. This morning the patient was unable to dress himself, or get himself a cup of water and he is usually independently to do these things. This prompted concern from custodial employee which took him to urgent care. When she asked him if he was in pain he pointed to his chest and abdomen. This morning he was able to communicate to the employees that he did have chest pain. Today on exam he is unable to appropriately answer questions in regards to his care or his health, although he is able to voice basically needs. long-term employee states she did not observe any vomiting, diarrhea, hematuria. Past Med Surg Social Fam HX - Past Medical History Attestation: Yes The following information was validated with the patient. Source: patient, old records reviewed Medical history: asthma, diabetes, GERD, hyperlipidemia, hypertension, seizures Additional medical history: mild intellectual disability. Vit D Deficiency. schizophrenia. Urinary Frequency/OAB. Asthma. KYRA. Consipation. Dry eyes. Depression Psychiatric history: depression, schizophrenia - Past Surgical History Additional surgical history: toe unsure. right leg 2010. tonsillectomy as child. umbilical hernia repair 2009. appendectomy 2011. appendectomy and right hemicoletomy 2012. incisional hernia repair 2013 - Social History Smoking Status: Current every day smoker Packs per day: 1 PDD Smokeless Tobacco Status: No Alcohol use: unknown Drug use: none Current living situation: [facility] Activity Level: Independent ambulation - Family History Mother Living Status: Age at : 57 Cause of : unknown Father Living Status: Cause of : colon cancer ROS unobtainable: due to mental status All Systems PM: A 10-system review of systems was performed and is negative for pertinent findings except as documented above in the HPI. - Constitutional Constitutional: as per HPI - EENT Eyes: as per HPI - Constitutional Vitals: Temp Pulse Resp BP Pulse Ox 98.6 F 73 17 117/72 95 06/15/19 09:54 06/15/19 13:00 06/15/19 13:00 06/15/19 13:00 06/15/19 13:00 General appearance: Present: cooperative, no acute distress Exam: Gen: awake but unoriented to self, location or day, no acute distress. Head: atraumatic, normocephalic. ENT: EOMI, PERRL, no oropharyngeal erythema, nares patent, mucous membranes moist. Neck: No thyromegaly appreciated. Neck supple no cervical lymphadenopathy. Resp: CTAB, no wheezing, rhonchi, or rhales. CV: RRR, Normal S1 and S2. No murmur, gallops, or rubs. GI/Abdominal exam: bowel sounds throughout, soft, non-tender, non- distended; no hepatosplenomegaly Skin: intact; no rashes, lesions, or bruising. Ext: No cyanosis or edema. pulses +2/4 bilaterally UE and LE. Neuro: cooperative with exam, but due to mental status unable to follow commands, or respond to questions. Internal Med - H&P Results - Labs CBC & Chem 7: 06/15/19 09:50 06/15/19 09:50 Labs: Short CBC 06/15/19 Range/Units 09:50 WBC 13.7 H (4.3-11.1) K/mcL Hgb 11.1 L (12.9-16.9) g/dL Hct 35.2 L (37.5-50.1) % Plt Count 382 (140-400) K/mcL Neutrophils # 10.9 H (1.6-8.9) K/mcL BMP 06/15/19 09:50 Sodium 138 Potassium 4.8 Chloride 107 Carbon Dioxide 24 BUN 29 H Creatinine 1.15 Glucose 113 H Calcium 10.6 H Cardiac Enzymes 06/15/19 Range/Units 09:50 Troponin I < 0.03 (< 0.04) ng/mL Urine 06/15/19 Range/Units 10:20 Urine Color Yellow (Yellow) Urine Clarity Clear (Clear) Urine pH 6.5 (5.0-8.0) pH Units Ur Specific Luana 1.014 (1.010-1.025) Urine Protein Negative (Neg-Trace) mg/dL Urine Glucose (UA) Normal (Normal) mg/dL - Impressions ITS Impressions Chest X-Ray 06/15/19 10:25 IMPRESSION: Cardiomegaly with mild asymmetric ground-glass opacification at the left lung base. Pattern suspected to represent asymmetric edema or atelectasis. Underlying pneumonitis would be considered less likely. D/ / Frandy Johnson MD / Frandy Johnson MD Interpreting Provider: Frandy Johnson MD Head CT 06/15/19 10:52 IMPRESSION: 1. No acute intracranial abnormality. 2. New right mastoid effusion with unchanged left mastoid effusion. Unchanged ethmoid sinus disease. D/ / Lb Jorge MD / Lb Jorge MD Interpreting Provider: Lb Jorge MD - Assessment and Plan (1) Chest pain Current Visit: Yes Status: Acute Assessment and plan: Patient is a 48-year-old male with past medical history of seizures, schizophrenia, hypertension and tobacco dependency. Presented today with chest pain. EKG showed ischemic changes, And increased QTC of 463. Initial troponins obtained in the ED have been negative. In the ED he received 81 mg of aspirin and was started on heparin drip. We will continue to rule out ACS Dr. Conteh is aware of patient. Plan: - Trend troponins - Keep nothing by mouth - Telemetry - Nitroglycerin when necessary - Repeat EKG in the morning - Echo in the morning - We will obtain lipid panel in the morning - A1c in the morning -Continue heparin drip - Daily aspirin 81 mg, daily statin Qualifiers: Chest pain type: unspecified Qualified Code(s): R07.9 - Chest pain, unspecified (2) Altered mental status Current Visit: Yes Status: Acute Assessment and plan: Patient is a 48-year-old male with history of seizure disorder who arrived with employee of [employer] who states he has had altered mental status for 2 days. Patient complained of chest pain, and On arrival labs showed lithium levels to be 2.0, which is higher than therapeutic level. His altered mental status can be due to lithium toxicity, seizure disorder, or ACS. Head CT shows no acute intracranial abnormalities. Chest x-ray: atelectasis. Plan: - obtain ammonia levels - neuro checks Q4H - will continue to workup for ACS. cardiology consulted. (3) History of seizure disorder Current Visit: Yes Status: Acute Assessment and plan: Due to history of Seizure disorder patient is at risk for seizures. Supratherapeutic levels of lithium increases patient's risk of seizure. It is unclear if altered mental status/staring spells could be due to seizure disorder versus ACS versus Li toxicity. Land; -Seizure precautions -Continue patient's Anti-seizure medication OxyCarbazepine - Ativan when necessary for seizures - Consult neuro; morning EEG (4) Eugenio Saenz toxicity Current Visit: Yes Status: Acute Assessment and plan: On arrival labs show lithium levels at 2.0. His EKG shows an increase QTC of 463. This is evidence of lithium toxicity. Patient is Currently receiving fluids for patient's lithium toxicity. plan: - Continue to monitor EKG on telemetry - As lithium can cause thyroid abnormalities we will continue to obtain blood chemistry. Qualifiers: Encounter type: sequela Injury intent: undetermined intent Qualified Code(s): T56.894S - Toxic effect of other metals, undetermined, sequela (5) Abdominal pain Current Visit: Yes Status: Acute Assessment and plan: prior to arrival patient complained of abdominal pain. patient has a history of constipation plan: - check LFT - if abnormal obtain an ultrasound of liver - continue home bowel regimen Qualifiers: Qualified Code(s): R10.9 - Unspecified abdominal pain (6) Leukocytosis Current Visit: No Status: Acute Assessment and plan: labs show a leukocytosis. Current leukocytosis may be reactive to ACS, infection, lithium toxicity. Current infectious workup has been negative.patient remains afebrile and hemodynamically stable. Plan; -Continue to monitor CBC a.m. -No antibiotics at this time. Qualifiers: Qualified Code(s): D72.829 - Elevated white blood cell count, unspecified (7) Increased thyroid stimulating hormone (TSH) level Current Visit: Yes Status: Acute Assessment and plan: increased TSH may be reactive to increase lithium levels. Plan: We will continue to monitor signs of hypothyroidism. (8) Chronic anemia Current Visit: No Status: Acute Assessment and plan: patient has long-standing history of chronic anemia in hemorrhoids. Plan; -we will give iron -Watch for evidence of bleeding -Continue to monitor (9) Calcium increased serum Current Visit: No Status: Acute Assessment and plan: on serum chemistry patient has increased calcium levels Plan; -Patient is getting IV fluids -Repeat serum chemistry in a.m. (10) Hypertension Current Visit: Yes Status: Acute Assessment and plan: continue patient's home lisinopril Qualifiers: Qualified Code(s): I10 - Essential (primary) hypertension (11) Hyperlipidemia Current Visit: Yes Status: Acute Assessment and plan: continue home statin dosage Qualifiers: Qualified Code(s): E78.5 - Hyperlipidemia, unspecified (12) Pre-diabetes Current Visit: Yes Status: Acute Assessment and plan: patient was diagnosed with prediabetes currently controlled on current diet. Will obtain A1c levels in a.m. (13) Sleep apnea Current Visit: Yes Status: Acute Assessment and plan: patient has been diagnosed with obstructive sleep apnea. Patient does not use a CPAP machine at night. Qualifiers: Qualified Code(s): G47.30 - Sleep apnea, unspecified (14) Psychiatric diagnosis Current Visit: Yes Status: Acute Assessment and plan: patient is currently being treated for depression and schizophrenia. Plan; - We will hold lithium due to supratherapeutic levels - Continue other home medications, Wellbutrin, Zyprexa, monitor QTC - We will hold Haldol Dec due to unknown last administration (15) Tobacco abuse Current Visit: Yes Status: Acute Assessment and plan: patient is an avid smoker. Currently smokes 1 pack per day. Plan; - Nicotine patch available for use. - Time Spent With Patient Total time spent is greater than 50% in coordination of care (as documented) at patient's floor/unit and/or counseling patient:
--- NOTE | 2019-06-15 15:24 | Event Note ---
Date of Encounter: 06/15/19 Time of Encounter: 14:30 to serve as attending attestation pending completion of H&P by resident I examined this patient and my medical decision-making was reviewed with the Resident Physician Dr Medrano. I agree with the documented findings, disposition and treatment plan as described except to the extent set forth below. Mr Boucher is being observed for NSTEMI, Encephaloapthy and possible lithium toxicity awake, most of info from longterm aide whom is with him. Cheange in mentation is sluggish activity level and less talkative. Currently improved. Noted since yesterday and throughout day today. She has never witnessed him having a seziure. eye fluttering/staring spells at group hoome today and here brief, less <30 sec and returned to interactive immediately following. He c/o cp which is since gone and abd pain also relived. She denies any diarrhea. has hx constip ation. no emesis. Pt answers his name. Points to cp being previously substernal and left chest. He states his left arm hurt and throat hurt when asked. denied back pain at that time. Admits to being sob at that time. Sitter notes him being diaphoretic then. Abd pain he points ot was LUQ, now gone. gen- alert, awake,appears stated age, nad eyes- pupils equal round , eom intact, no nystagmus cv- reg rate and rhythm, normal s1,s2, no murmurs appreciated, no le edema, no jvd, warm ext lungs- ctabl, no wheezing, rhonchi or crackles, normal resp effort on o2 nc abd- soft, non tender, mildly distended, no HSM appreciated, + bs neuro- AAOxperson, does not answer questions regarding place/situation (would not know date at baseline) CN grossly intact, 4/5 strength thoughout all extremities, speech is at his baseline per caregiver, follows all commands Acute Encephalopathy (present about 24 hrs) DDX at this time includes related to NSTEMI, Possible Mild [place] Toxicity, Seizure, with infection or CVA being less likely given clinical picture/work up thus far and exam Baseline mentation is will answer his name, would not know date or location, typically answers questions but when mad will stare and not answer, is independent in ADLs, does NOT administer his own meds [facility] confirmed he is his own decision maker and is a Full code status CT head neg -NSTEMI tx as below -Neuro consulted- will repeat lithium level in am and check EEG in am -lithium treatment as below -neuro checks Chest Pain, currently pain free EKG with ischemic changes inferiorly, RBBB, LAFB, QTc 463 trop negative, second pending STEMI alert was called in ED - Dr Conteh saw pt in ED, EKG appears STEMI but some ST elevations present on prior EKG, he is repeating trop now, keep npo, may go for [facility] this afternoon -tele, nitro prn, check echo, am ekg, trend trops -has received asa, cont hep gtt Hx Seizures New onset staring spells/eye fluttering -cont home trileptal, seizure precautions, prn ativan seizure -Dr Rodas will see tomorrow, EEG in AM Possible [place] Toxicity, Mild with [place] level 2 -hold lithium (for schizophrenia), daily lithium levels -neuro and nephro are on board -Dr Bradford has d/w Dr Matta- no emergent HD, giving IVFs -monitor his mildly prolonged QTc, tele Leukocytosis suspect may be reactive as infectious work up negative CXR neg, UA neg, procal neg -will cont to monitor for s/s of infection, no abx at this time Hypercalcemia 10.6- most recently 10.3 in March- IVFs and monitor Chronic anemia at baseline- monitor hgb on hep gtt Elevated TSH, low T4, not noted as dx at longterm or being treated but prior TSH in March similar- this could be influenced by lithium level- do not begin tx at this time, will need repeat level in outpt setting Tobacco dependence (smokes nearly hourly)- nicotine patch Chronic Conditions: gerd-famotidine asthma- no home meds/inhalers constipation-miralax daily, colace BID schizophrenia/depression-holding lithium, cont zyprexa, wellbutrin; additionally he is on Haldol Dec q 2 w, monitor qtc, may not be able to cont zyprexa if worsens, will get psych consult as needed KYRA not on cpap overactive bladder-oxybutinin pre DM- not on any meds/insulin, gets accu check q sunday, checking a1c HTN- acei HLD- statin
--- NOTE | 2019-06-15 17:33 | Nephrology Consult Note ---
Date of Encounter: 06/15/19 Time of Encounter: 17:00 Assessment and Plan (1) Outlook toxicity Current Visit: Yes Status: Acute Mild lithium toxicity with no indication for [employer] s/p NS bolus in the ED,continue IVF at 100cc/hr Hold ACEi for now Serial lithium checks q6-8 advised Qualifiers: Encounter type: sequela Injury intent: undetermined intent Qualified Code(s): T56.894S - Toxic effect of other metals, undetermined, sequela (2) Chest pain Current Visit: Yes Status: Acute Per cardiology, appears resolved Qualifiers: Chest pain type: unspecified Qualified Code(s): R07.9 - Chest pain, unspecified (3) Altered mental status Current Visit: Yes Status: Acute per primary Qualifiers: Qualified Code(s): R41.82 - Altered mental status, unspecified History of Present Illness - Reason for Consult Consult date: 06/15/19 Requesting physician: Cristian Bradford - History of Present Illness 48 y o male with PMH of DM, HTN, MRDD, seizure d/o and schizophrenia on chronic lithium admitted from his care home with altered mental status and chest pain. renal consulted form the ED for lithium level of 2.0. SCr noted at 1.15, GFR >60 with IVF advised. Pt seen and examined Past Med Surg Social Fam HX - Past Medical History Medical history: asthma, diabetes, GERD, hyperlipidemia, hypertension, seizures Additional medical history: mild intellectual disability. Vit D Deficiency. schizophrenia. Urinary Frequency/OAB. Asthma. KYRA. Consipation. Dry eyes. Depression Psychiatric history: depression, schizophrenia - Past Surgical History Additional surgical history: toe unsure. right leg 2010. tonsillectomy as child. umbilical hernia repair 2009. appendectomy 2012. appendectomy and right hemicoletomy 2013. incisional hernia repair 2014 - Social History Smoking Status: Current every day smoker Packs per day: 1 PDD Smokeless Tobacco Status: No Alcohol use: unknown Drug use: none - Family History Mother Living Status: Age at : 57 Cause of : unknown Father Living Status: Cause of : colon cancer Medications and Allergies Pravastatin Sodium [Pravachol] 80 mg PO 199905/30/15 [History] Docusate Sodium [Colace] 100 mg PO BID #14 capsule 03/19/16 [Rx] Acetaminophen [Tylenol] 650 mg PO Q4H PRN 01/03/18 [History] Cetirizine HCl [Zyrtec] 10 mg PO DAILY 01/03/18 [History] Cholecalciferol (D-3) [Vitamin D] 2,000 unit PO DAILY 01/03/18 [History] Haloperidol Decanoate [Haldol Decanoate 100] 100 mg IM Q2W 01/03/18 [History] Ibuprofen [Motrin Ib] 400 mg PO Q4H PRN 01/03/18 [History] L. Rhamnosus GG/Inulin [Culturelle Capsule] 1 tab PO DAILY 01/03/18 [History] [place] Carbonate 600 mg PO BID 01/03/18 [History] OLANZapine [Zyprexa] 5 mg PO QAM 01/03/18 [History] OLANZapine [Zyprexa] 15 mg PO HS 01/03/18 [History] Polyethylene Glycol 3350 [MiraLAX Powder Bulk 17.9 Oz] 1 scoop PO DAILY 01/03/18 [History] Bupropion HCl [Wellbutrin Xl] 300 mg PO DAILY 06/16/19 [History] Carbamide Peroxide [Debrox] 3 drop BOTH EARS AD 06/16/19 [History] Clindamycin Phosphate [Clindagel] 1 appl TP DAILY PRN 06/16/19 [History] Famotidine [Pepcid] 20 mg PO BID 06/16/19 [History] Ferrous Sulfate [Iron] 325 mg PO BID 06/16/19 [History] Folic Acid 1 mg PO DAILY 06/16/19 [History] Lisinopril [Zestril] 10 mg PO DAILY 06/16/19 [History] OXcarbazepine [Oxcarbazepine] 600 mg PO BID 06/16/19 [History] Oxybutynin Chloride [Ditropan XL] 5 mg PO DAILY 06/16/19 [History] Polyvinyl Alcohol/Povidone/Pf [Refresh Classic Eye Drops] 1 drop BOTH EYES DAILY 06/16/19 [History] Propylene Glycol/Peg 400 [Systane Gel Eye Drops] 1 - 2 drop BOTH EYES HS 06/16/19 [History] Allergy/AdvReac Type Severity Reaction Status Date / Time No Known Allergies Allergy Verified 05/30/15 21:53 Review of Systems ROS unobtainable: due to mental status Exam - Vital Signs Vital signs: Initial Vital Signs Temp Pulse Resp BP Pulse Ox 98.6 F 77 19 125/75 99 06/15/19 09:36 06/15/19 09:36 06/15/19 09:36 06/15/19 09:36 06/15/19 09:36 Vital Signs - Last 8 Hours Temp Pulse Resp BP Pulse Ox 06/15/19 16:21 82 14 126/81 96 06/15/19 15:30 80 23 135/84 06/15/19 15:00 127/76 06/15/19 14:30 119/82 06/15/19 14:00 120/69 06/15/19 13:00 73 17 117/72 95 06/15/19 12:30 125/77 06/15/19 12:00 111/73 06/15/19 11:50 111/82 06/15/19 11:40 77 23 125/75 98 06/15/19 11:30 118/76 06/15/19 11:20 125/73 06/15/19 11:10 132/77 06/15/19 11:00 119/67 06/15/19 10:50 120/68 06/15/19 10:44 98 06/15/19 10:30 70 15 111/78 99 06/15/19 10:27 72 10 115/76 97 06/15/19 10:00 80 20 121/75 96 06/15/19 09:54 98.6 F 77 19 125/75 98 06/15/19 09:52 77 19 125/75 98 06/15/19 09:50 72 120/68 06/15/19 09:36 98.6 F 77 19 125/75 99 Intake and Output 06/15/19 06/15/19 06/15/19 07:59 15:59 23:59 Intake Total 1000 / 1000 Balance 1000 / 1000 Intake: IV Fluids 1000 / 1000 0.9 % Sodium Chloride 1,000 ML 1000 / 1000 @ 0 mls/hr .ROUTE .[facility] Rx#:[id number] Other: Weight 90.401 kg Patient Weight 06/15/19 23:59 Weight 90.401 kg - General Appearance General appearance: well-developed, well-nourished, anxious EENT: ATNC, mucous membranes moist Neck: no JVD, supple Respiratory: clear Cardiology: no edema, normal S1, normal S2 Gastrointestinal: no tenderness, no guarding Integumentary: warm and dry Neurologic: no focal deficit Musculoskeletal: no deformities Psychiatric: cooperative Results - Lab Results 06/17/19 02:42 06/17/19 02:42 Most recent lab results 06/15/19 09:50 Calcium 10.6 H Magnesium 2.3 Consult Discharge Plan - Plan Referrals: NONE,PCP [Primary Care Provider] -
[2019-06-15 18:19] LABS: Albumin 4.2 g/dL (3.5-5.7); Albumin/Globulin Ratio 1.8 (1.1-2.2); Bilirubin,Direct 0.1 mg/dL (0.0-0.2); Bilirubin,Indirect 0.2 mg/dL (0.0-1.2); Bilirubin,Total 0.3 mg/dL (0.3-1.0); Globulin 2.4 g/dL (2.4-3.5); Total Protein 6.6 g/dL (6.4-8.9)
[2019-06-15] MEDS: Nicotine 21 MG PATCH.TD24 TD SCH (23:09)
[2019-06-15] MEDS: Famotidine 20 MG TABLET PO SCH (23:10)
[2019-06-15] MEDS: OXcarbazepine 150 MG TABLET PO SCH (23:10)
[2019-06-15] MEDS: OLANZapine 5 MG TAB.RAPDIS PO SCH (23:10)
[2019-06-16] MEDS: 0.9 % Sodium Chloride 1,000 ML IVC SCH ×3 (01:53→17:39)
[2019-06-16 02:31] LABS: Basophils # 0.1 K/mcL (0.0-0.2); Basophils % 0.3 %; Eosinophils # 0.5 K/mcL (0.0-0.6); Eosinophils % 3.6 %; Hematocrit 33.2 % (37.5-50.1); Hemoglobin 10.4 g/dL (12.9-16.9); Lymphocytes # 1.3 K/mcL (0.6-4.6); Lymphocytes % 8.9 %; Mean Corpuscular HGB Conc 31.3 g/dL (31.6-35.5); Mean Corpuscular Hemoglobin 29.4 pg (28.0-33.3); Mean Corpuscular Volume 93.8 fL (83.0-100.0); Mean Platelet Volume 8.3 fL (9.4-12.4); Monocytes # 1.4 K/mcL (0.0-1.3); Monocytes % 9.4 %; Platelet Count 353 K/mcL (140-400); Red Blood Count 3.54 M/mcL (4.19-5.50); Red Cell Distribution Width 15.2 % (11.5-14.5); Segmented Neutrophils % 76.8 %; White Blood Count 14.3 K/mcL (4.3-11.1)
[2019-06-16 02:45] LABS: BUN/Creatinine Ratio 16 (6-26); Blood Urea Nitrogen 16 mg/dL (6-20); Calcium 9.9 mg/dL (8.6-10.3); Carbon Dioxide 22 mEq/L (23-29); Chloride 112 mEq/L (98-107); Chol/HDL Ratio 3.2 (0-4.9); Cholesterol 136 mg/dL (< 200); Glucose 89 mg/dL (70-105); HDL Cholesterol 42 mg/dL (40-59); LDL Cholesterol,Calculated 58 mg/dL (0-99); Magnesium 2.2 mg/dL (1.6-2.6); Osmolality,Calculated 291 (280-300); Potassium 3.8 mEq/L (3.5-5.1); Sodium 140 mEq/L (136-145); Triglycerides 181 mg/dL (< 150); eGFR For African Americans > 60 (> 60); eGFR For Non-African Americans > 60 (> 60)
[2019-06-16 08:54] LABS: Estimated Average Glucose 117 mg/dl
--- NOTE | 2019-06-16 09:14 | Neurology - Consult Note ---
<Carter Jordan J - Last Filed: 06/16/19 11:17> Date of Encounter: 06/16/19 Time of Encounter: 09:08 Assessment and Plan (1) Altered mental status Current Visit: Yes Status: Acute Presents with altered mental status of unclear etiology; neurology consult to evaluate for possible seizures Elevated leukocytosis with no obvious infective source, afebrile and vital stable No witnessed seizure activity since admission Continues to be encephalopathic today on examination, is lethargic and responsive to verbal stimulus only. However, will not follow commands or participate in exam. However passive observation that does not appear to be any focal motor findings. Differential for altered mental state includes mild lithium toxicity, unknown infectious etiology, seizures CVA thought to be less likely Dr. Wade has seen the patient in the clinic previously for seizures. Last visit was 2015. He has had outpatient EEG study at that time showing essentially normal awake and drowsy EEG. Also hypothyroid; can be side effect of lithium, defer to IM team for management; could possibly explain encephalopahty PLAN: Repeat lithium toxicity level in the morning Obtain EEG now We will check oxcarbamazepine level as well Continue seizure precautions Recommending 1 mg every 2 hours PRN for breakthrough seizures Continue with neurochecks per protocol Neurology will c/w following Qualifiers: Qualified Code(s): R41.82 - Altered mental status, unspecified (2) History of seizure disorder Current Visit: Yes Status: Acute History of Present Illness Chief complaint: altered mental status HPI: Mr. Boucher is a 48 year old male with a PMH of DM, HLD, HTN, Seizures, and schizophrenia. He presents to [facility] from a half-way with a chief concern of altered mental status and possibility of seizures. The time of my assessment this morning the patient is encephalopathic and lethargic responding to verbal stimulus, but he is unable to maintain concentration for any prolonged period of time. He is unable to provide any history of present illness. All information obtained from chart review. It is reported the patient came from a half-way after having a change in mentation and becoming more withdrawn. He is also noted to have rhythmic eye fluttering and steroids as half-way lasting approximately 30 seconds. On admission he was noted to have a mild lithium toxicity of 2.0. He is also found to have hypothyroidism with TSH of 6.154 and free T4 0.68. Mild leukocytosis with WBC of 14.3 with unclear etiology. Also has stable anemia. Chest x-ray shows cardiomegaly with mild asymmetric groundglass opacification in the left lung base. A CT of the head shows no acute intracranial abnormality. New right mastoid effusion with unchanged left mastoid effusion and unchanged ethmoid sinus disease. Past Med Surg Social Fam HX - Past Medical History Medical history: asthma, diabetes, GERD, hyperlipidemia, hypertension, seizures Additional medical history: mild intellectual disability. Vit D Deficiency. schizophrenia. Urinary Frequency/OAB. Asthma. KYRA. Consipation. Dry eyes. Depression Psychiatric history: depression, schizophrenia - Past Surgical History Additional surgical history: toe unsure. right leg 2010. tonsillectomy as child. umbilical hernia repair 2009. appendectomy 2011. appendectomy and right hemicoletomy 2013. incisional hernia repair 2014 - Social History Smoking Status: Current every day smoker Packs per day: 1 PDD Smokeless Tobacco Status: No Alcohol use: unknown Drug use: none - Family History Mother Living Status: Age at : 57 Cause of : unknown Father Living Status: Cause of : colon cancer Medications and Allergies Pravastatin Sodium [Pravachol] 80 mg PO 199905/30/15 [History] Docusate Sodium [Colace] 100 mg PO BID #14 capsule 03/19/16 [Rx] Acetaminophen [Tylenol] 650 mg PO Q4H PRN 01/03/18 [History] Cetirizine HCl [Zyrtec] 10 mg PO DAILY 01/03/18 [History] Cholecalciferol (D-3) [Vitamin D] 2,000 unit PO DAILY 01/03/18 [History] Haloperidol Decanoate [Haldol Decanoate 100] 100 mg IM Q2W 01/03/18 [History] Ibuprofen [Motrin Ib] 400 mg PO Q4H PRN 01/03/18 [History] L. Rhamnosus GG/Inulin [Culturelle Capsule] 1 tab PO DAILY 01/03/18 [History] [place] Carbonate 600 mg PO BID 01/03/18 [History] OLANZapine [Zyprexa] 5 mg PO QAM 01/03/18 [History] OLANZapine [Zyprexa] 15 mg PO HS 01/03/18 [History] Polyethylene Glycol 3350 [MiraLAX Powder Bulk 17.9 Oz] 1 scoop PO DAILY 01/03/18 [History] Bupropion HCl [Wellbutrin Xl] 300 mg PO DAILY 06/16/19 [History] Carbamide Peroxide [Debrox] 3 drop BOTH EARS AD 06/16/19 [History] Clindamycin Phosphate [Clindagel] 1 appl TP DAILY PRN 06/16/19 [History] Famotidine [Pepcid] 20 mg PO BID 06/16/19 [History] Ferrous Sulfate [Iron] 325 mg PO BID 06/16/19 [History] Folic Acid 1 mg PO DAILY 06/16/19 [History] Lisinopril [Zestril] 10 mg PO DAILY 06/16/19 [History] OXcarbazepine [Oxcarbazepine] 600 mg PO BID 06/16/19 [History] Oxybutynin Chloride [Ditropan XL] 5 mg PO DAILY 06/16/19 [History] Polyvinyl Alcohol/Povidone/Pf [Refresh Classic Eye Drops] 1 drop BOTH EYES DAILY 06/16/19 [History] Propylene Glycol/Peg 400 [Systane Gel Eye Drops] 1 - 2 drop BOTH EYES HS 06/16/19 [History] Allergy/AdvReac Type Severity Reaction Status Date / Time No Known Allergies Allergy Verified 05/30/15 21:53 ROS unobtainable: due to mental status All Systems: The remainder of the systems were reviewed and are negative Physical Examination - Vital Signs Vital Signs: Initial Vital Signs Temp Pulse Resp BP Pulse Ox 98.6 F 77 19 125/75 99 06/15/19 09:36 06/15/19 09:36 06/15/19 09:36 06/15/19 09:36 06/15/19 09:36 - Exam Exam: Examination: Neurological exam is, it of the patient's altered mental state General Examination: *CONSTITUTIONAL: Lethargic and confused. No acute distress *GENERAL APPEARANCE OF PATIENT appears generally unwell and older than stated age *EYES: pupils equal, round, reactive to light and accommodation, conjunctiva clear *CARDIOVASCULAR: no peripheral edema, distal temperature normal, dorsalis pedis pulses normal. Refer to vital signs * MUSCULOSKELETAL: *GAIT AND STATION: Deferred *ASSESSMENT OF MUSCLE STRENGTH IN THE UPPER AND LOWER EXTREMITIES moves all 4 extremities with passive observation; does not follow commands *MUSCLE TONE IN THE UPPER AND LOWER EXTREMITIES normal Neurological: *ORIENTATION to person only but disoriented otherwise *LANGUAGE AND FUNCTION no significant aphasia or dysarthia was noted. *ATTENTION AND CONCENTRATION are abnormal and the patient has difficulty maintaining concentration and/or following commands *LANGUAGE FUNCTION no significant aphasia or dysarthia was noted. *FUND OF KNOWLEDGE aware of current events, past history, vocabulary *MENTAL attention span and concentration are altered with encephalopathy *CN II optic fundi were normal, no papilledema noted. *CN III,IV, PERRLA extraocular eye movements were full, no nystagmus and no ptosis noted. *CN V shows normal sensation and jaw opens symmetrically. *CN VII shows normal facial movement symmetrically, upper and lower bilaterally. *CN VIII hard of hearing *CN IX-X palate elevated symmetrically *CN XI normal strength in the sternocleidomastoid muscles, symmetrical shoulder shrugging. *CN XII tongue protruded in the midline, with normal strength and movement. *SENSORY EXAMINATION light touch intact *REFLEXES: deep tendon reflexes were diminished diffusely; however, reflexes were hard to ascertain as the patient is encephalopathic and would not relax during examination, no pathological reflexes were noted. *CEREBELLAR TESTING no opsoclonus *PAIN LEVEL 0/10 Results - Laboratory Findings CBC and BMP: 06/16/19 02:10 06/16/19 02:10 Abnormal lab findings: Abnormal lab results WBC 14.3 K/mcL (4.3-11.1) H 06/16/19 02:10 RBC 3.54 M/mcL (4.19-5.50) L 06/16/19 02:10 Hgb 10.4 g/dL (12.9-16.9) L 06/16/19 02:10 Hct 33.2 % (37.5-50.1) L 06/16/19 02:10 MCHC 31.3 g/dL (31.6-35.5) L 06/16/19 02:10 RDW 15.2 % (11.5-14.5) H 06/16/19 02:10 MPV 8.3 fL (9.4-12.4) L 06/16/19 02:10 Neutrophils # 11.0 K/mcL (1.6-8.9) H 06/16/19 02:10 Monocytes # 1.4 K/mcL (0.0-1.3) H 06/16/19 02:10 Heparin Anti-Xa, Unfract 0.07 IU/mL (0.30-0.70) L 06/16/19 07:49 Chloride 112 mEq/L (98-107) H 06/16/19 02:10 Carbon Dioxide 22 mEq/L (23-29) L 06/16/19 02:10 BUN 29 mg/dL (6-20) H 06/15/19 09:50 Glucose 113 mg/dL (70-105) H 06/15/19 09:50 Hemoglobin A1c 5.7 % (-5.6) H 06/16/19 02:10 Calcium 10.6 mg/dL (8.6-10.3) H 06/15/19 09:50 AST 12 Units/L (13-39) L 06/15/19 17:37 Alkaline Phosphatase 123 Units/L (34-104) H 06/15/19 17:37 Triglycerides 181 mg/dL (< 150) H 06/16/19 02:10 VLDL Cholesterol, Calc 36 mg/dL (< 31) H 06/16/19 02:10 TSH 6.154 mcIU/mL (0.340-5.600) H 06/15/19 09:50 Free T4 0.68 ng/dl (0.70-2.00) L 06/15/19 09:50 Urine Blood Small (Negative) H 06/15/19 10:20 Urine Microscopic RBC 5-15 per hpf (0-3) H 06/15/19 10:20 Ur Squamous Epith Cells Moderate per lpf (None-Few) H 06/15/19 10:20 [place] 1.3 mEq/L (0.6-1.2) H 06/16/19 02:10 - Diagnostic Findings Additional findings: CT/CT head/brain wo con IMPRESSION: 1. No acute intracranial abnormality. 2. New right mastoid effusion with unchanged left mastoid effusion. Unchanged ethmoid sinus disease. Consult Discharge Plan - Plan Referrals: NONE,PCP [Primary Care Provider] - <Jaspreet Rodas I - Last Filed: 06/16/19 14:14> Date of Encounter: 06/16/19 Assessment and Plan (1) Altered mental status Current Visit: Yes Status: Acute I have personally performed a face to face diagnostic evaluation, including HPI, EXAM, which is included in the Assesment and plan, which was discussed with Carter Jordan CNP, I agree with the above outlined documentation. We will review the EEG for any interictal abnormalities ,this time would not recommend any new anticonvulsive medication Jaspreet Rodas MD. NeurologyI Qualifiers: Qualified Code(s): R41.82 - Altered mental status, unspecified (2) History of seizure disorder Current Visit: Yes Status: Acute History of Present Illness HPI: Mr. Boucher is a 48 year old male All Systems: The remainder of the systems were reviewed and are negative Physical Examination - Vital Signs Vital Signs: Initial Vital Signs Temp Pulse Resp BP Pulse Ox 98.6 F 77 19 125/75 99 06/15/19 09:36 06/15/19 09:36 06/15/19 09:36 06/15/19 09:36 06/15/19 09:36 Results - Laboratory Findings CBC and BMP: 06/16/19 02:10 06/16/19 02:10 Abnormal lab findings: Abnormal lab results WBC 14.3 K/mcL (4.3-11.1) H 06/16/19 02:10 RBC 3.54 M/mcL (4.19-5.50) L 06/16/19 02:10 Hgb 10.4 g/dL (12.9-16.9) L 06/16/19 02:10 Hct 33.2 % (37.5-50.1) L 06/16/19 02:10 MCHC 31.3 g/dL (31.6-35.5) L 06/16/19 02:10 RDW 15.2 % (11.5-14.5) H 06/16/19 02:10 MPV 8.3 fL (9.4-12.4) L 06/16/19 02:10 Neutrophils # 11.0 K/mcL (1.6-8.9) H 06/16/19 02:10 Monocytes # 1.4 K/mcL (0.0-1.3) H 06/16/19 02:10 Heparin Anti-Xa, Unfract 0.07 IU/mL (0.30-0.70) L 06/16/19 07:49 Chloride 112 mEq/L (98-107) H 06/16/19 02:10 Carbon Dioxide 22 mEq/L (23-29) L 06/16/19 02:10 BUN 29 mg/dL (6-20) H 06/15/19 09:50 Glucose 113 mg/dL (70-105) H 06/15/19 09:50 Hemoglobin A1c 5.7 % (-5.6) H 06/16/19 02:10 Calcium 10.6 mg/dL (8.6-10.3) H 06/15/19 09:50 AST 12 Units/L (13-39) L 06/15/19 17:37 Alkaline Phosphatase 123 Units/L (34-104) H 06/15/19 17:37 Triglycerides 181 mg/dL (< 150) H 06/16/19 02:10 VLDL Cholesterol, Calc 36 mg/dL (< 31) H 06/16/19 02:10 TSH 6.154 mcIU/mL (0.340-5.600) H 06/15/19 09:50 Free T4 0.68 ng/dl (0.70-2.00) L 06/15/19 09:50 Urine Blood Small (Negative) H 06/15/19 10:20 Urine Microscopic RBC 5-15 per hpf (0-3) H 06/15/19 10:20 Ur Squamous Epith Cells Moderate per lpf (None-Few) H 06/15/19 10:20 [place] 1.3 mEq/L (0.6-1.2) H 06/16/19 02:10
--- NOTE | 2019-06-16 11:07 | Internal Med Progress Note ---
Date of Encounter: 06/16/19 Time of Encounter: 11:07 - Constitutional Vitals: Temp Pulse Resp BP Pulse Ox 98.9 F 78 16 115/77 91 06/16/19 07:30 06/16/19 07:30 06/16/19 07:30 06/16/19 07:30 06/16/19 03:45 General appearance: Present: cooperative, no acute distress Internal Medicine: Result - Labs CBC & Chem 7: 06/16/19 02:10 06/16/19 02:10 Labs: Short CBC 06/16/19 Range/Units 02:10 WBC 14.3 H (4.3-11.1) K/mcL Hgb 10.4 L (12.9-16.9) g/dL Hct 33.2 L (37.5-50.1) % Plt Count 353 (140-400) K/mcL Neutrophils # 11.0 H (1.6-8.9) K/mcL BMP 06/15/19 06/16/19 09:50 02:10 Sodium 138 140 Potassium 4.8 3.8 Chloride 107 112 H Carbon Dioxide 24 22 L BUN 29 H 16 Creatinine 1.15 1.01 Glucose 113 H 89 Calcium 10.6 H 9.9 Cardiac Enzymes 06/15/19 06/15/19 06/15/19 Range/Units 09:50 14:41 20:28 Troponin I < 0.03 < 0.03 < 0.03 (< 0.04) ng/mL 06/16/19 Range/Units 02:10 Troponin I < 0.03 (< 0.04) ng/mL Liver Function 06/15/19 Range/Units 17:37 Total Bilirubin 0.3 (0.3-1.0) mg/dL Direct Bilirubin 0.1 (0.0-0.2) mg/dL AST 12 L (13-39) Units/L ALT 22 (7-52) Units/L Alkaline Phosphatase 123 H (34-104) Units/L Albumin 4.2 (3.5-5.7) g/dL Urine 06/15/19 Range/Units 10:20 Urine Color Yellow (Yellow) Urine Clarity Clear (Clear) Urine pH 6.5 (5.0-8.0) pH Units Ur Specific [place] 1.014 (1.010-1.025) Urine Protein Negative (Neg-Trace) mg/dL Urine Glucose (UA) Normal (Normal) mg/dL - ABG Interpretation ABG results: PT/INR, D-dimer PT 10.9 Seconds (9.4-12.1) 06/15/19 09:50 - Impressions Impressions Head CT 06/15/19 10:52 IMPRESSION: 1. No acute intracranial abnormality. 2. New right mastoid effusion with unchanged left mastoid effusion. Unchanged ethmoid sinus disease. D/ / Lb Jorge MD / Lb Jorge MD Interpreting Provider: Lb Jorge MD Consult Discharge Plan - Plan Referrals: NONE,PCP [Primary Care Provider] -
--- NOTE | 2019-06-16 11:38 | Electrocardiograph Report ---
[place] [id number] Test Date: 2019-06-15 Pat Name: Vin Boucher Department: EXAM1 Room: 2NE17 Gender: M [employer]: : 1970 Requested By: Jakob Thomas Order Number: [id number] Reading MD: Sabrina Apodaca Measurements Intervals [place] Rate: 76 P: 44 MN: 197 QRS: -78 QRSD: 155 T: 47 QT: 411 QTc: 463 Interpretive Statements Sinus rhythm RBBB and LAFB Inferior infarct, age indeterminate Electronically Signed On 06-16-2019 11:36:52 EDT by Sabrina Apodaca
[2019-06-16] MEDS: Famotidine 20 MG TABLET PO SCH ×2 (11:49→17:52)
[2019-06-16] MEDS: BuPROPion XL (24 HR) 150 MG TABLET PO SCH (11:54)
[2019-06-16] MEDS: Nicotine 21 MG PATCH.TD24 TD SCH (11:54)
[2019-06-16] MEDS: OLANZapine 5 MG TAB.RAPDIS PO SCH ×2 (11:55→22:36)
[2019-06-16] MEDS: OXcarbazepine 150 MG TABLET PO SCH ×2 (11:55→22:36)
[2019-06-16] MEDS: Aspirin Enteric Coated 81 MG Tablet PO SCH (11:55)
[2019-06-16] MEDS: Folic Acid 1 MG TABLET PO SCH (11:55)
[2019-06-16] MEDS: Loratadine 10 MG TABLET PO SCH (11:55)
[2019-06-16] MEDS: Heparin 25,000 UNIT/250 ML D5W 25,000 UNIT/250 ML IV.SOLN IVC SCH (11:59)
--- NOTE | 2019-06-16 12:53 | Event Note ---
Date of Encounter: 06/16/19 Time of Encounter: 12:54 mr valadez requires a medical hold for continued hospitalization due to altered mental status with lithium toxicity and possible seizures. medical hold order can be found under [facility] order dated 06/16/19 Mr Valadez is admitted with concern for STEMI with treatment initated and cardiology following and with encephalopathy with lithium toxicity and potential seizures. He has a known history of seziyure disorder as well as schizophrenia which is why he takes lithium. At this time he remains encephalopathic without a clear understanding of his life threatening medical conditions. He is his own decision maker and at this time a medical hold is required for continued medical treatment until encepahlopathy has resolved. RN, Candi, mikey. Order for med hold in place Sitter at bedside. Security to be contacted if pt attempts to leave.
--- NOTE | 2019-06-16 13:07 | Internal Med Progress Note ---
<Robert Browning S - Last Filed: 06/16/19 15:27> Hospitalist Progress Note - Encounter Date of Encounter: 06/16/19 Time of Encounter: 14:00 - Subjective Interval History: Mr. Boucher is a 48-year-old male with past medical history significant for developmental delay, depression and schizophrenia, who was admitted to the hospital on 06/15. His caregivers at his [facility] reports that he is not acting himself, and has been complaining of abdominal pain and chest pain. In the ED, his triage EKG was concerning for STEMI, however cardiology consult was obtained, and they did not feel that a catheterization was warranted at that ti me. Patient was started on aspirin and heparin. Of note, serial troponins were negative, and his initial lithium level was 2.0 today, the patient's nurse reports that he has been uncooperative overnight, has started getting out of bed, and has dislodged one IV, and was not cooperating with attempts to do a fingerstick glucose. On my interview with the patient, he is alert, pleasant, and responsive. However, his responses are not always appropriate, repeatedly asking me how I am doing. At one point in her conversation he did shake his head no in response when asked if he was in pain. He does seem redirectable, and cooperates with physical exam, however, nursing staff continues to report he is getting out of bed, not cooperating, and attempting to leave his room. A sitter has been ordered, as well as PO Haldol 5 mg twice a day as needed for acute agitation, since his history is significant for a prior suicide attempt, as well as self-destructive behaviors when not on his medications. Continued cardiology workup includes TTE, which shows normal LVEF without wall motion abnormalities. They recommend discontinuing intravenous heparin. They do not recommend catheterization at this time, and diet orders will be placed. EEG performed today shows "few paroxysmal epileptiform discharges were noted along with generalized slowing, which is a nonspecific pattern mostly seen in patient with metabolic toxic hypoxic encephalopathy consistent with diffuse cortical dysfunction clinical correlation is suggested" - Exam Vitals: Temp Pulse Resp BP Pulse Ox 98.9 F 78 16 115/77 91 06/16/19 07:30 06/16/19 07:30 06/16/19 07:30 06/16/19 07:30 06/16/19 03:45 Exam: Gen: awake but unoriented to self, location or day, no acute distress. Head: atraumatic, normocephalic. ENT: EOMI, PERRL, no oropharyngeal erythema, nares patent, mucous membranes moist. Neck: No thyromegaly appreciated. Neck supple no cervical lymphadenopathy. Resp: CTAB, no wheezing, rhonchi, or rhales. CV: RRR, Normal S1 and S2. No murmur, gallops, or rubs. GI/Abdominal exam: bowel sounds throughout, soft, non-tender, non- distended; no hepatosplenomegaly Skin: intact; no rashes, lesions, or bruising. Ext: No cyanosis or edema. pulses +2/4 bilaterally UE and LE. Neuro: cooperative with exam, very limited ability to respond to ques tions. - Assessment and Plan (1) Chest pain Current Visit: Yes Status: Acute Assessment and Plan: no CP at this time Cardiology following Continue to monitor for s/s of ischemia (2) Acute electrocardiogram changes Current Visit: Yes Status: Acute Assessment and Plan: Cardiology following, ECG changes not indicative of acute STEMI (3) Kinmundy toxicity Current Visit: Yes Status: Acute Assessment and Plan: repeat Li level in the AM recheck BUN/Cr, electrolytes, Ca and CBC tomorrow TSH and T4 abnormalities not significantly changed from prior values. will require f/u as outpt (4) Altered mental status Current Visit: Yes Status: Acute Assessment and Plan: sitter to monitor due to h/o self-destructive behaviors PO Haldol 5 mg BID PRN consider ativan and/or IV benadryl only if absolutely necessary, as presentation is likely due to adverse effects of psychoactive substances Psych consulted, will see pt in the AM Recheck Li level tomorrow, Check oxcarbamazepine level per Neuro recommendation (5) History of seizure disorder Current Visit: Yes Status: Acute Assessment and Plan: padding in place on bedrails, pt labeled high fall risk (6) Leukocytosis Current Visit: Yes Status: Acute Assessment and Plan: unknown origin, recheck CBC in AM DVT Prophylaxis: will start sub-q heparin - Summary of Assessment and Plan Summary of Assessment and Plan: stop hepartin Gtt for NSTEMI start heparin sub-q for DVT prophylaxis Recheck CBC, CMP, Li, tomorrow AM Check oxcarbamazepine lvl Psych will see in AM - Time Spent with Patient Total time spent is greater than 50% in coordination of care (as documented) at patient's floor/unit and/or counseling patient: Internal Medicine: Result - Labs CBC & Chem 7: 06/16/19 02:10 06/16/19 02:10 Labs: Short CBC 06/16/19 Range/Units 02:10 WBC 14.3 H (4.3-11.1) K/mcL Hgb 10.4 L (12.9-16.9) g/dL Hct 33.2 L (37.5-50.1) % Plt Count 353 (140-400) K/mcL Neutrophils # 11.0 H (1.6-8.9) K/mcL BMP 06/16/19 02:10 Sodium 140 Potassium 3.8 Chloride 112 H Carbon Dioxide 22 L BUN 16 Creatinine 1.01 Glucose 89 Calcium 9.9 Cardiac Enzymes 06/15/19 06/15/19 06/16/19 Range/Units 14:41 20:28 02:10 Troponin I < 0.03 < 0.03 < 0.03 (< 0.04) ng/mL Liver Function 06/15/19 Range/Units 17:37 Total Bilirubin 0.3 (0.3-1.0) mg/dL Direct Bilirubin 0.1 (0.0-0.2) mg/dL AST 12 L (13-39) Units/L ALT 22 (7-52) Units/L Alkaline Phosphatase 123 H (34-104) Units/L Albumin 4.2 (3.5-5.7) g/dL - ABG Interpretation ABG results: PT/INR, D-dimer PT 10.9 Seconds (9.4-12.1) 06/15/19 09:50 - Impressions Impressions Echocardiogram 06/16/19 14:08 Impressions: Technically sub-optimal due to poor echocardiographic windows. LVEF 55-60%. Normal LV chamber size and function. Mild concentric left ventricular hypertrophy. Right ventricle was not well visualized. Grossly, it appears mildly dilated with normal function. Atypical septal motion consistent with bundle branch block. No evidence of pulmonary hypertension. No significant valvular dysfunction. Left Ventricular Wall Motion: Rest Echo Findings All wall segments showed normal motion. Findings: Study Quality * Technically sub-optimal due to poor echocardiographic windows. ECG Findings * Sinus rhythm with BBB. Left Ventricle * LVEF 55-60%. * Normal LV chamber size and function. * Mild concentric left ventricular hypertrophy. * Atypical septal motion consistent with bundle branch block. Right Ventricle * Right ventricle was not well visualized. Grossly, it appears mildly dilated with normal function. Left Atrium * Mildly dilated left atrium. Right Atrium * Mildly dilated right atrium. Interatrial Septum * Interatrial septum not well evaluated. Aortic Valve * Aortic valve not well visualized. * No aortic regurgitation. * No aortic stenosis. Mitral Valve * Mitral valve not well visualized. * No mitral regurgitation. * No mitral stenosis. Tricuspid Valve * Normal tricuspid valve structure and function. * Trace tricuspid regurgitation. * No evidence of pulmonary hypertension. Pulmonic Valve * Pulmonic valve not well visualized. * No pulmonic regurgitation. Aorta * Normally sized aortic root. Pericardium * The pericardium appears normal. IVC * Normal IVC dimensions and inspiratory collapse. Pulmonary Artery * Pulmonary artery not well visualized. Consult Discharge Plan - Plan Referrals: NONE,PCP [Primary Care Provider] - <Anne Puri - Last Filed: 06/16/19 16:25> Hospitalist Progress Note - Encounter Date of Encounter: 06/16/19 - Exam Vitals: Temp Pulse Resp BP Pulse Ox 98.9 F 78 16 115/77 91 06/16/19 07:30 06/16/19 07:30 06/16/19 07:30 06/16/19 07:30 06/16/19 03:45 - Time Spent with Patient Total time spent is greater than 50% in coordination of care (as documented) at patient's floor/unit and/or counseling patient: Internal Medicine: Result - Labs CBC & Chem 7: 06/16/19 02:10 06/16/19 02:10 Labs: Short CBC 06/16/19 Range/Units 02:10 WBC 14.3 H (4.3-11.1) K/mcL Hgb 10.4 L (12.9-16.9) g/dL Hct 33.2 L (37.5-50.1) % Plt Count 353 (140-400) K/mcL Neutrophils # 11.0 H (1.6-8.9) K/mcL BMP 06/16/19 02:10 Sodium 140 Potassium 3.8 Chloride 112 H Carbon Dioxide 22 L BUN 16 Creatinine 1.01 Glucose 89 Calcium 9.9 Cardiac Enzymes 06/15/19 06/16/19 Range/Units 20:28 02:10 Troponin I < 0.03 < 0.03 (< 0.04) ng/mL Liver Function 06/15/19 Range/Units 17:37 Total Bilirubin 0.3 (0.3-1.0) mg/dL Direct Bilirubin 0.1 (0.0-0.2) mg/dL AST 12 L (13-39) Units/L ALT 22 (7-52) Units/L Alkaline Phosphatase 123 H (34-104) Units/L Albumin 4.2 (3.5-5.7) g/dL - ABG Interpretation ABG results: PT/INR, D-dimer PT 10.9 Seconds (9.4-12.1) 06/15/19 09:50 - Impressions Impressions Echocardiogram 06/16/19 14:08 Impressions: Technically sub-optimal due to poor echocardiographic windows. LVEF 55-60%. Normal LV chamber size and function. Mild concentric left ventricular hypertrophy. Right ventricle was not well visualized. Grossly, it appears mildly dilated with normal function. Atypical septal motion consistent with bundle branch block. No evidence of pulmonary hypertension. No significant valvular dysfunction. Left Ventricular Wall Motion: Rest Echo Findings All wall segments showed normal motion. Findings: Study Quality * Technically sub-optimal due to poor echocardiographic windows. ECG Findings * Sinus rhythm with BBB. Left Ventricle * LVEF 55-60%. * Normal LV chamber size and function. * Mild concentric left ventricular hypertrophy. * Atypical septal motion consistent with bundle branch block. Right Ventricle * Right ventricle was not well visualized. Grossly, it appears mildly dilated with normal function. Left Atrium * Mildly dilated left atrium. Right Atrium * Mildly dilated right atrium. Interatrial Septum * Interatrial septum not well evaluated. Aortic Valve * Aortic valve not well visualized. * No aortic regurgitation. * No aortic stenosis. Mitral Valve * Mitral valve not well visualized. * No mitral regurgitation. * No mitral stenosis. Tricuspid Valve * Normal tricuspid valve structure and function. * Trace tricuspid regurgitation. * No evidence of pulmonary hypertension. Pulmonic Valve * Pulmonic valve not well visualized. * No pulmonic regurgitation. Aorta * Normally sized aortic root. Pericardium * The pericardium appears normal. IVC * Normal IVC dimensions and inspiratory collapse. Pulmonary Artery * Pulmonary artery not well visualized. - Attending Attestation I examined this patient and my medical decision-making was reviewed with the Resident Physician Dr Browning. I agree with the documented findings, disposition and treatment plan as described except to the extent set forth below. Mr Boucher is being observed for possible ischemic chest pain, Encephaloapthy and lithium toxicity awake, says hi, denies cp or abd pain, inappropriately laughs, does not answer who he is or where he is. follows commands. resting in bed gen- alert, awake,appears stated age, nad cv- reg rate and rhythm, normal s1,s2, no murmurs appreciated lungs- ctabl, normal resp effort on room air neuro- alert, cannot assess orientation, CN grossly intact, moves all ext without focal deficit noted Acute Encephalopathy , clinically unable to determine cause at this time- appears more alert and interactive today but not meaningful conversation DDX includes Possible Mild Kinmundy Toxicity, Seizure, with infection or CVA being less likely given clinical picture/work up thus far and exam Baseline mentation is will answer his name, would not know date or location, typically answers questions but when mad will stare and not answer, is independent in ADLs, does NOT administer his own meds [place] confirmed he is his own decision maker and is a Full code status -sitter and treatment as below Chest Pain, currently pain free- trop sneg, cards following and verbally rec no LHC today, can dc hep gtt, awaiting further recs -echo pending Hx Seizures New onset staring spells/eye fluttering -cont home trileptal, neuro following, EEG today Possible Kinmundy Toxicity, Mild with Kinmundy level 2- improving with ivfs and holding medication- appreciate nephro and neuro input -psych is consulted and will discuss with pt and consider schizophrenia med changes Leukocytosis suspect may be reactive as infectious work up negative CXR neg, UA neg, procal neg -will cont to monitor for s/s of infection, no abx at this time Schizophrenia He has difficulty now today following instructions, freq out of bed, nearly ripping out IV, trying to leave room saying he is leaving- I have d/w Dr Natarajan of psychiatry whom will eval him in am, in emergencies if agitation rec is for Haldol, also can give IV ativan or benadryl- as now that lithium is clearing out of his system and is used for schizophrenia sx control, can anticipate sx exacerbation -given his mental status is not his baseline medical hold in place Chronic anemia at baseline- monitor hgb , now off hep gtt <Robert Browning - Last Filed: 06/16/19 15:27> (1) Chest pain Qualifiers: Chest pain type: unspecified Qualified Code(s): R07.9 - Chest pain, unspecified (3) Kinmundy toxicity Qualifiers: Encounter type: sequela Injury intent: undetermined intent Qualified Code(s): T56.894S - Toxic effect of other metals, undetermined, sequela (4) Altered mental status Qualifiers: Qualified Code(s): R41.82 - Altered mental status, unspecified (6) Leukocytosis Qualifiers: Qualified Code(s): D72.829 - Elevated white blood cell count, unspecified
--- NOTE | 2019-06-16 13:08 | Event Note ---
Date of Encounter: 06/16/19 Time of Encounter: 13:[address] Natarajan of psychiatry whom will see Mr Boucher in consult tomorrow but verbal recommendations for med management of schizophrenia/agitation off home lithium were reviewed. Ok to give Haldol, Ativan or benadryl as needed. She will discuss further med changes with him tomorrow. Cardiology has reviewed today and no plan for cath. He is able to eat.
[2019-06-16 14:58] LABS: Folate > 22.3 ng/mL (3.0-16.0); Vitamin B12 250 pg/mL (250-1100)
--- NOTE | 2019-06-16 15:09 | Cardiology Progress Note ---
Date of Encounter: 06/16/19 Time of Encounter: 15:00 Assessment and Plan (1) Abnormal EKG Current Visit: Yes Status: Acute Cardiology consulted for abnormal EKG Patient presented with confusion. Patient does not answer questions appropriately or participate in conversation (Schizophrenia and MRDD). Not clear if he has other symptoms. Reviewed by Dr. Delano castrejon, EKG did not meet STEMI criteria. EKG shows SR, RBBB, LAFB. ST changes noted to be more pronounced compared to EKG in 2018. Troponin negative. TTE completed and shows normal LVEF. No WMA. Okay to d/c heparin gtt. There is no strong indication and he is not a good candidate for further cardiac testing due to inability to cooperate or consent to testing. Cardiology will sign off at this time. Please call with changes or questions. Discussion w patient/family: The assessment and plan as outlined above was discussed with the patient and/or family members who expressed understanding and agreement. All questions were answered. Thank you for involving us in the care of your patient. Please call with any questions. Results 06/16/19 02:10 06/16/19 02:10 Lab Results 06/15/19 06/15/19 06/15/19 14:41 17:37 20:28 WBC Hgb Hct Plt Count Sodium Potassium Chloride Carbon Dioxide BUN Creatinine Glucose Calcium Magnesium Total Bilirubin 0.3 AST 12 L ALT 22 Alkaline Phosphatase 123 H Troponin I < 0.03 < 0.03 B-Natriuretic Peptide 06/16/19 06/16/19 06/16/19 02:10 02:10 02:10 WBC 14.3 H Hgb 10.4 L Hct 33.2 L Plt Count 353 Sodium 140 Potassium 3.8 Chloride 112 H Carbon Dioxide 22 L BUN 16 Creatinine 1.01 Glucose 89 Calcium 9.9 Magnesium 2.2 Total Bilirubin AST ALT Alkaline Phosphatase Troponin I B-Natriuretic Peptide 65 06/16/19 02:10 WBC Hgb Hct Plt Count Sodium Potassium Chloride Carbon Dioxide BUN Creatinine Glucose Calcium Magnesium Total Bilirubin AST ALT Alkaline Phosphatase Troponin I < 0.03 B-Natriuretic Peptide Consult Discharge Plan - Plan Referrals: NONE,PCP [Primary Care Provider] -
--- NOTE | 2019-06-16 15:10 | EEG/EMG/Oth Biometrics Report ---
EEG Procedure Report EEG Procedure: Routine EEG Procedure Note: This is a routine 21 channel digital EEG performed utilizing 10- 20 international electrode placement system. FINDINGS: Patient has a predominant waking background frequency that is high in amplitude consistent with 4-6 Hz activity in the posterior region, without much reactivity to any external stimuli . record continued to show delta activity intermixed with some theta off and on, during the records there is few high amplitude spike wave discharges noted intermittently intermixed with some triphasic waves could be the potential for seizure Photic stimulation did not produce any convulsive response. Intermittent EMG artifacts were noted. Clinical interpretation Abnormal electroencephalogram , during this study there few paroxysmal epileptiform discharges were noted along with generalized slowing, which is a nonspecific pattern mostly seen in patient with metabolic toxic hypoxic encephalopathy consistent with diffuse cortical dysfunction clinical correlation is suggested
--- NOTE | 2019-06-16 16:47 | Nephrology Progress Note ---
Date of Encounter: 06/16/19 Time of Encounter: 12:00 - Assessment and Plan (1) Gross toxicity Current Visit: Yes Status: Acute Mild lithium toxicity with no indication for STACK MATCHER, down to 1.3 Continue IVF at 100cc/hr today Continue to hold ACEi for now Will sign off, please reconsult prn Qualifiers: Encounter type: sequela Injury intent: undetermined intent Qualified Code(s): T56.894S - Toxic effect of other metals, undetermined, sequela (2) Chest pain Current Visit: Yes Status: Acute Per cardiology, appears resolved Qualifiers: Chest pain type: unspecified Qualified Code(s): R07.9 - Chest pain, unspecified (3) Altered mental status Current Visit: Yes Status: Acute per primary Qualifiers: Qualified Code(s): R41.82 - Altered mental status, unspecified Subjective Interval history: Pt seen and examined appearing agitated with nursing staff surrounding him Objective - Vital Signs Vital signs: Vital Signs Temp Pulse Resp BP Pulse Ox 06/16/19 07:30 98.9 F 78 16 115/77 06/16/19 03:45 98.8 F 78 17 109/62 91 06/15/19 23:35 99.1 F 80 17 123/67 94 06/15/19 18:37 99.2 F 75 17 123/74 94 Intake and Output 06/16/19 06/16/19 06/16/19 07:59 15:59 23:59 Intake Total 148 / 250 102 / 250 Output Total 400 / 700 300 / 700 Balance -252 / -450 -198 / -450 Intake: IV Fluids 148 / 250 102 / 250 Heparin 25,000 UNIT/250 ML D5W 148 / 250 102 / 250 25,000 unit In 250 ml @ 11 UNIT /KG/HR 9.944 mls/hr IVC .Q24H RAMON Rx#:[id number] Output: Urine 400 / 700 300 / 700 Other: Weight 91.6 kg Blood Glucose* 119 Patient Weight 06/16/19 23:59 Weight 91.6 kg - General Appearance General appearance: Present: well-developed, well-nourished EENT: Present: ATNC, mucous membranes moist Neck: Present: no JVD, supple Respiratory: Present: clear Cardiology: Present: no edema, normal S1, normal S2 Gastrointestinal: Present: no tenderness, no guarding Integumentary: Present: warm and dry Neurologic: Present: confused Musculoskeletal: Present: no deformities Psychiatric: Present: agitated - Lab 06/16/19 02:10 06/16/19 02:10 Consult Discharge Plan - Plan Referrals: NONE,PCP [Primary Care Provider] -
[2019-06-16] MEDS: levETIRAcetam 250 MG TABLET PO SCH ×2 (17:51→19:14)
[2019-06-16] MEDS: *HR* Heparin 5,000 UNIT/ML VIAL SQ SCH (22:36)
[2019-06-17 03:29] LABS: Basophils # 0.1 K/mcL (0.0-0.2); Basophils % 0.3 %; Eosinophils # 0.4 K/mcL (0.0-0.6); Eosinophils % 2.5 %; Hemoglobin 10.2 g/dL (12.9-16.9); Immature Granulocytes % 0.8 % (0-4); Lymphocytes # 1.1 K/mcL (0.6-4.6); Mean Corpuscular HGB Conc 31.9 g/dL (31.6-35.5); Mean Corpuscular Hemoglobin 29.7 pg (28.0-33.3); Mean Corpuscular Volume 93.3 fL (83.0-100.0); Mean Platelet Volume 8.4 fL (9.4-12.4); Monocytes # 1.4 K/mcL (0.0-1.3); Monocytes % 9.4 %; Neutrophils # 12.1 K/mcL (1.6-8.9); Platelet Count 328 K/mcL (140-400); Red Blood Count 3.43 M/mcL (4.19-5.50); Red Cell Distribution Width 15.2 % (11.5-14.5); White Blood Count 15.1 K/mcL (4.3-11.1)
[2019-06-17 03:57] LABS: Alanine Aminotransferase 22 Units/L (7-52); Albumin 3.9 g/dL (3.5-5.7); Albumin/Globulin Ratio 1.6 (1.1-2.2); Alkaline Phosphatase 128 Units/L (34-104); Aspartate Amino Transferase 14 Units/L (13-39); BUN/Creatinine Ratio 12 (6-26); Bilirubin,Total 0.5 mg/dL (0.3-1.0); Blood Urea Nitrogen 14 mg/dL (6-20); Calcium 9.8 mg/dL (8.6-10.3); Carbon Dioxide 23 mEq/L (23-29); Chloride 108 mEq/L (98-107); Globulin 2.5 g/dL (2.4-3.5); Glucose 95 mg/dL (70-105); Osmolality,Calculated 290 (280-300); Potassium 3.8 mEq/L (3.5-5.1); Sodium 140 mEq/L (136-145); Total Protein 6.4 g/dL (6.4-8.9); eGFR For African Americans > 60 (> 60); eGFR For Non-African Americans > 60 (> 60)
[2019-06-17] MEDS: *HR* Heparin 5,000 UNIT/ML VIAL SQ SCH ×3 (06:26→22:15)
[2019-06-17] MEDS: levETIRAcetam 250 MG TABLET PO SCH ×2 (06:26→17:28)
--- NOTE | 2019-06-17 08:51 | Neurology Progress Note ---
<Carter Jordan - Last Filed: 06/17/19 08:48> Date of Encounter: 06/17/19 Time of Encounter: 08:49 Assessment and Plan (1) Altered mental status Current Visit: Yes Status: Acute The patient was seen in follow-up for altered mental status and seizure activity EEG obtained showing abnormal electroencephalogram with few paroxysmal epileptiform discharges along with generalized slowing -The patient was started on Keppra 500 mg by mouth twice a day and has had no return of seizure like activity; rec continuing at d/c His neurological exam is nonfocal without any lateralizing findings. In regards to encephalopathy this was most likely 2/2 lithium toxicity as he is on lithium long-term and his levels were supratherapeutic on admission -L[place]um now 0.9 and patients mental status is improving -we are evaluating levels of Trileptal as well; labs pending; if Trileptal level also supratherapeutic we would recommend decreasing his dose WBC elevated and uptrending since admission; may be d/t lithium; defer to IM team for management Neurology will follow peripherally Would recommend f/u with Dr. Wade on d/c as he has seen him in the office previously Qualifiers: Qualified Code(s): R41.82 - Altered mental status, unspecified (2) History of seizure disorder Current Visit: Yes Status: Acute Subjective Principal diagnosis: Encephalopathy; seizures Interval history: The chart was reviewed, the patient was seen and examined at the bedside. Today he is alert and oriented to self, easily arousable to verbal stimulus and follows commands. This is an improvement compared to yesterday's assessment. Of note, he is unable to provide any information in regards to reported seizure activity. No reports of seizure activity overnight and no new deficits, he remains stable clinically. Objective - Constitutional Vitals: Temp Pulse Resp BP Pulse Ox 99.3 F 82 18 117/71 96 06/17/19 03:58 06/17/19 07:25 06/17/19 03:58 06/17/19 07:25 06/17/19 03:58 Exam: Examination: General Examination: *CONSTITUTIONAL:Sleeping upon entry but arousable to gentle verbal stimulus. Alert to self only. No acute distress, calm and cooperative *GENERAL APPEARANCE OF PATIENT appears generally unwell and older than stated age *EYES: pupils equal, round, reactive to light and accommodation, conjunctiva clear *CARDIOVASCULAR: no peripheral edema, distal temperature normal, dorsalis pedis pulses normal. Refer to vital signs * MUSCULOSKELETAL: *GAIT AND STATION: Deferred *ASSESSMENT OF MUSCLE STRENGTH IN THE UPPER AND LOWER EXTREMITIES bilateral deltoids, biceps, triceps, secured entrance monitor strength 5/5, bilateral hip flexors, anterior tibialis and dorsiflexion of bilateral feet are 5/5 motor strength scale *MUSCLE TONE IN THE UPPER AND LOWER EXTREMITIES normal, no spasticity noted Neurological: *ORIENTATION to person only *LANGUAGE AND FUNCTION no significant aphasia. At baseline his speech is somewhat garbled *ATTENTION AND CONCENTRATION are normal and have improved today. He is able to maintain concentration and follow commands without interruption *LANGUAGE FUNCTION no significant aphasia or dysarthia was noted. *FUND OF KNOWLEDGE unaware of current events or events surrounding admission *MENTAL attention span and concentration are improving, however, it is unclear of his true baseline *CN II optic fundi were normal, no papilledema noted. *CN III,IV, PERRLA extraocular eye movements were full, no nystagmus and no ptosis noted. *CN V shows normal sensation and jaw opens symmetrically. *CN VII shows normal facial movement symmetrically, upper and lower bilaterally. *CN VIII hard of hearing *CN IX-X palate elevated symmetrically *CN XI normal strength in the sternocleidomastoid muscles, symmetrical shoulder shrugging. *CN XII tongue protruded in the midline, with normal strength and movement. *SENSORY EXAMINATION light touch intact *REFLEXES: deep tendon reflexes were diminished diffusely; however, reflexes were hard to ascertain as the patient is encephalopathic and would not relax during examination, no pathological reflexes were noted. *CEREBELLAR TESTING patient would not perform finger to nose or heel to guzman testing *PAIN LEVEL 0/10 Results - Laboratory Findings CBC and BMP: 06/17/19 02:42 06/17/19 02:42 Abnormal lab findings: Abnormal lab results WBC 15.1 K/mcL (4.3-11.1) H 06/17/19 02:42 RBC 3.43 M/mcL (4.19-5.50) L 06/17/19 02:42 Hgb 10.2 g/dL (12.9-16.9) L 06/17/19 02:42 Hct 32.0 % (37.5-50.1) L 06/17/19 02:42 MCHC 31.3 g/dL (31.6-35.5) L 06/16/19 02:10 RDW 15.2 % (11.5-14.5) H 06/17/19 02:42 MPV 8.4 fL (9.4-12.4) L 06/17/19 02:42 Neutrophils # 12.1 K/mcL (1.6-8.9) H 06/17/19 02:42 Monocytes # 1.4 K/mcL (0.0-1.3) H 06/17/19 02:42 Heparin Anti-Xa, Unfract 0.07 IU/mL (0.30-0.70) L 06/16/19 07:49 Chloride 108 mEq/L (98-107) H 06/17/19 02:42 Carbon Dioxide 22 mEq/L (23-29) L 06/16/19 02:10 BUN 29 mg/dL (6-20) H 06/15/19 09:50 Glucose 113 mg/dL (70-105) H 06/15/19 09:50 POC Glucose 103 mg/dL (70-99) H 06/17/19 03:57 Hemoglobin A1c 5.7 % (-5.6) H 06/16/19 02:10 Calcium 10.6 mg/dL (8.6-10.3) H 06/15/19 09:50 AST 12 Units/L (13-39) L 06/15/19 17:37 Alkaline Phosphatase 128 Units/L (34-104) H 06/17/19 02:42 Triglycerides 181 mg/dL (< 150) H 06/16/19 02:10 VLDL Cholesterol, Calc 36 mg/dL (< 31) H 06/16/19 02:10 Folate > 22.3 ng/mL (3.0-16.0) H 06/16/19 13:37 TSH 6.154 mcIU/mL (0.340-5.600) H 06/15/19 09:50 Free T4 0.68 ng/dl (0.70-2.00) L 06/15/19 09:50 Urine Blood Small (Negative) H 06/15/19 10:20 Urine Microscopic RBC 5-15 per hpf (0-3) H 06/15/19 10:20 Ur Squamous Epith Cells Moderate per lpf (None-Few) H 06/15/19 10:20 [place] 1.3 mEq/L (0.6-1.2) H 06/16/19 02:10 Consult Discharge Plan - Plan Referrals: NONE,PCP [Primary Care Provider] - <Jaspreet Rodas I - Last Filed: 06/17/19 11:56> Date of Encounter: 06/17/19 Assessment and Plan (1) Altered mental status Current Visit: Yes Status: Acute I have personally performed a face to face diagnostic evaluation, including HPI, EXAM, which is included in the Assesment and plan, which was discussed with Carter Jordan CNP, I agree with the above outlined documentation. Jaspreet Rodas MD. NeurologyI Qualifiers: Qualified Code(s): R41.82 - Altered mental status, unspecified (2) History of seizure disorder Current Visit: Yes Status: Acute Objective - Constitutional Vitals: Temp Pulse Resp BP Pulse Ox 99.9 F H 89 17 124/71 96 06/17/19 11:41 06/17/19 11:41 06/17/19 11:41 06/17/19 11:41 06/17/19 03:58 Results - Laboratory Findings CBC and BMP: 06/17/19 02:42 06/17/19 02:42 Abnormal lab findings: Abnormal lab results WBC 15.1 K/mcL (4.3-11.1) H 06/17/19 02:42 RBC 3.43 M/mcL (4.19-5.50) L 06/17/19 02:42 Hgb 10.2 g/dL (12.9-16.9) L 06/17/19 02:42 Hct 32.0 % (37.5-50.1) L 06/17/19 02:42 MCHC 31.3 g/dL (31.6-35.5) L 06/16/19 02:10 RDW 15.2 % (11.5-14.5) H 06/17/19 02:42 MPV 8.4 fL (9.4-12.4) L 06/17/19 02:42 Neutrophils # 12.1 K/mcL (1.6-8.9) H 06/17/19 02:42 Monocytes # 1.4 K/mcL (0.0-1.3) H 06/17/19 02:42 Heparin Anti-Xa, Unfract 0.07 IU/mL (0.30-0.70) L 06/16/19 07:49 Chloride 108 mEq/L (98-107) H 06/17/19 02:42 Carbon Dioxide 22 mEq/L (23-29) L 06/16/19 02:10 BUN 29 mg/dL (6-20) H 06/15/19 09:50 Glucose 113 mg/dL (70-105) H 06/15/19 09:50 POC Glucose 103 mg/dL (70-99) H 06/17/19 03:57 Hemoglobin A1c 5.7 % (-5.6) H 06/16/19 02:10 Calcium 10.6 mg/dL (8.6-10.3) H 06/15/19 09:50 AST 12 Units/L (13-39) L 06/15/19 17:37 Alkaline Phosphatase 128 Units/L (34-104) H 06/17/19 02:42 Triglycerides 181 mg/dL (< 150) H 06/16/19 02:10 VLDL Cholesterol, Calc 36 mg/dL (< 31) H 06/16/19 02:10 Folate > 22.3 ng/mL (3.0-16.0) H 06/16/19 13:37 TSH 6.154 mcIU/mL (0.340-5.600) H 06/15/19 09:50 Free T4 0.68 ng/dl (0.70-2.00) L 06/15/19 09:50 Urine Blood Small (Negative) H 06/15/19 10:20 Urine Microscopic RBC 5-15 per hpf (0-3) H 06/15/19 10:20 Ur Squamous Epith Cells Moderate per lpf (None-Few) H 06/15/19 10:20 [place] 1.3 mEq/L (0.6-1.2) H 06/16/19 02:10
--- NOTE | 2019-06-17 08:53 | Consult Note ---
Date of Encounter: 06/17/19 Time of Encounter: 08:53 Assessment & Recommendation (1) Schizophrenia Current visit: Yes Status: Acute Assessment & Recommendation: Patient has a known history of schizophrenia; however, he is unable to provide any information regarding this diagnosis acid speech is very garbled and he is difficult to understand. Additionally, it is unclear if the patient is at his baseline, as he appears to be somnolent and is minimally able to cooperate with exam. Recommendations: - Continue PRN medications as needed for agitation, including Haldol, Ativan, and Benadryl. - Continue to hold lithium. Consider Depakote as an alternative once patient is able to contribute to decision-making regarding his medical therapy - Consider obtaining outside psychiatric records for further understanding of patient's previous diagnoses and treatment plan. Qualifiers: Schizophrenia type: unspecified Qualified Code(s): F20.9 - Schizophrenia, unspecified (2) [place] toxicity Current visit: Yes Status: Acute Qualifiers: Encounter type: sequela Injury intent: undetermined intent Qualified Code(s): T56.894S - Toxic effect of other metals, undetermined, sequela History of Present Illness Requesting Physician: Cassie Bermeo Reason for consult: History of schizophrenia; lithium toxicity History of present illness: Mr. Boucher is a 48 year old male with history of schizophrenia, seizures, and MRDD who presented to the emergency department for evaluation of chest and abdominal pain. Patient currently resides in a detention, and was accompanied by an attendant at the time of hospital admission; per review of hospitalist H&P, patient was noted to have a change in mental status. Patient was found to have an elevated lithium level of 2.0 at the time of admission, prompting hold of this medication. Patient was evaluated by cardiology regarding his chest pain initially started her on a heparin drip, which has since been discontinued. Overnight following hospital day 1, patient was noted to develop agitation, with significant lack of cooperation with nursing staff. He was started on haldol 5mg BID PRN; per nursing staff today, patient did not have any significant overnight events, and has been cooperative with staff. On evaluation today, patient does respond to voice and does answer questions; however, his speech is extremely garbled and difficult to understand what he is saying. Patient does not endorse any specific complaints; however, it is difficult to make out anything other than "psychiatric hospital". CC: Cassie Bermeo Past Med Surg Social Fam HX - Past Medical History Medical history: asthma, diabetes, GERD, hyperlipidemia, hypertension, seizures - Social History Smoking Status: Current every day smoker Smokeless Tobacco Status: No Alcohol use: unknown Drug use: none - Family History Mother Living Status: Age at : 57 Cause of : unknown Father Living Status: Cause of : colon cancer Medications & Allergies Pravastatin Sodium [Pravachol] 80 mg PO 199905/30/15 [History] Docusate Sodium [Colace] 100 mg PO BID #14 capsule 03/19/16 [Rx] Acetaminophen [Tylenol] 650 mg PO Q4H PRN 01/03/18 [History] Cetirizine HCl [Zyrtec] 10 mg PO DAILY 01/03/18 [History] Cholecalciferol (D-3) [Vitamin D] 2,000 unit PO DAILY 01/03/18 [History] Haloperidol Decanoate [Haldol Decanoate 100] 100 mg IM Q2W 01/03/18 [History] Ibuprofen [Motrin Ib] 400 mg PO Q4H PRN 01/03/18 [History] L. Rhamnosus GG/Inulin [Culturelle Capsule] 1 tab PO DAILY 01/03/18 [History] [place] Carbonate 600 mg PO BID 01/03/18 [History] OLANZapine [Zyprexa] 5 mg PO QAM 01/03/18 [History] OLANZapine [Zyprexa] 15 mg PO HS 01/03/18 [History] Polyethylene Glycol 3350 [MiraLAX Powder Bulk 17.9 Oz] 1 scoop PO DAILY 01/03/18 [History] Bupropion HCl [Wellbutrin Xl] 300 mg PO DAILY 06/16/19 [History] Carbamide Peroxide [Debrox] 3 drop BOTH EARS AD 06/16/19 [History] Clindamycin Phosphate [Clindagel] 1 appl TP DAILY PRN 06/16/19 [History] Famotidine [Pepcid] 20 mg PO BID 06/16/19 [History] Ferrous Sulfate [Iron] 325 mg PO BID 06/16/19 [History] Folic Acid 1 mg PO DAILY 06/16/19 [History] Lisinopril [Zestril] 10 mg PO DAILY 06/16/19 [History] OXcarbazepine [Oxcarbazepine] 600 mg PO BID 06/16/19 [History] Oxybutynin Chloride [Ditropan XL] 5 mg PO DAILY 06/16/19 [History] Polyvinyl Alcohol/Povidone/Pf [Refresh Classic Eye Drops] 1 drop BOTH EYES DAILY 06/16/19 [History] Propylene Glycol/Peg 400 [Systane Gel Eye Drops] 1 - 2 drop BOTH EYES HS 06/16/19 [History] Allergy/AdvReac Type Severity Reaction Status Date / Time No Known Allergies Allergy Verified 05/30/15 21:53 Review of Systems ROS unobtainable: due to patient condition Psychiatry Exam - Constitutional Vitals: Temp Pulse Resp BP Pulse Ox 99.3 F 82 18 117/71 96 06/17/19 03:58 06/17/19 07:25 06/17/19 03:58 06/17/19 07:25 06/17/19 03:58 General appearance: well-nourished, disheveled, average - Musculoskeletal Strength & Tone: normal for patient (grossly normal by observation) - Psychiatric Level of alertness: Alert Behavior: calm, cooperative Psychomotor activity: Slowed Eye Contact: Minimal Contact Speech pattern: limited, garbled Language & Vocabulary: limited, other (difficult to assess due to garbled speech) Perceptual Disturbances: Yes Reacting to internal stimuli (repeatedly looked off to the left while interviewer standing on right side of bed) Attention Span Ability: Capable of Focused Attention Patient Reliability: Not Reliable Historian Results - Drug Levels and Toxicology Drug Levels and Toxicology: Drug Levels and Toxicity 06/17/19 02:42 [place] 0.9 - Labs Labs: Laboratory Last Values WBC 15.1 K/mcL (4.3-11.1) H 06/17/19 02:42 RBC 3.43 M/mcL (4.19-5.50) L 06/17/19 02:42 Hgb 10.2 g/dL (12.9-16.9) L 06/17/19 02:42 Hct 32.0 % (37.5-50.1) L 06/17/19 02:42 MCV 93.3 fL (83.0-100.0) 06/17/19 02:42 MCH 29.7 pg (28.0-33.3) 06/17/19 02:42 MCHC 31.9 g/dL (31.6-35.5) 06/17/19 02:42 RDW 15.2 % (11.5-14.5) H 06/17/19 02:42 Plt Count 328 K/mcL (140-400) 06/17/19 02:42 MPV 8.4 fL (9.4-12.4) L 06/17/19 02:42 Immature Gran % 0.8 % (0-4) 06/17/19 02:42 Seg Neutrophils % 80.0 % 06/17/19 02:42 Lymphocytes % 7.0 % 06/17/19 02:42 Monocytes % 9.4 % 06/17/19 02:42 Eosinophils % 2.5 % 06/17/19 02:42 Basophils % 0.3 % 06/17/19 02:42 Neutrophils # 12.1 K/mcL (1.6-8.9) H 06/17/19 02:42 Lymphocytes # 1.1 K/mcL (0.6-4.6) 06/17/19 02:42 Monocytes # 1.4 K/mcL (0.0-1.3) H 06/17/19 02:42 Eosinophils # 0.4 K/mcL (0.0-0.6) 06/17/19 02:42 Basophils # 0.1 K/mcL (0.0-0.2) 06/17/19 02:42 PT 10.9 Seconds (9.4-12.1) 06/15/19 09:50 INR 1.0 06/15/19 09:50 APTT 35.9 Seconds (26.0-36.0) 06/15/19 09:50 Heparin Anti-Xa, Unfract 0.07 IU/mL (0.30-0.70) L 06/16/19 07:49 Sodium 140 mEq/L (136-145) 06/17/19 02:42 Potassium 3.8 mEq/L (3.5-5.1) 06/17/19 02:42 Chloride 108 mEq/L (98-107) H 06/17/19 02:42 Carbon Dioxide 23 mEq/L (23-29) 06/17/19 02:42 BUN 14 mg/dL (6-20) 06/17/19 02:42 Creatinine 1.13 mg/dL (0.70-1.30) 06/17/19 02:42 Est GFR ( Amer) > 60 (> 60) 06/17/19 02:42 Est GFR (Non-Af Amer) > 60 (> 60) 06/17/19 02:42 BUN/Creatinine Ratio 12 (6-26) 06/17/19 02:42 Glucose 95 mg/dL (70-105) 06/17/19 02:42 POC Glucose 103 mg/dL (70-99) H 06/17/19 03:57 Est Mean Plasma Glucose 117 mg/dl 06/16/19 02:10 Hemoglobin A1c 5.7 % (-5.6) H 06/16/19 02:10 Calculated Osmolality 290 (280-300) 06/17/19 02:42 Lactic Acid 1.1 mmol/L (0.5-2.2) 06/15/19 09:50 Calcium 9.8 mg/dL (8.6-10.3) 06/17/19 02:42 Magnesium 2.2 mg/dL (1.6-2.6) 06/16/19 02:10 Total Bilirubin 0.5 mg/dL (0.3-1.0) 06/17/19 02:42 Direct Bilirubin 0.1 mg/dL (0.0-0.2) 06/15/19 17:37 Indirect Bilirubin 0.2 mg/dL (0.0-1.2) 06/15/19 17:37 AST 14 Units/L (13-39) 06/17/19 02:42 ALT 22 Units/L (7-52) 06/17/19 02:42 Alkaline Phosphatase 128 Units/L (34-104) H 06/17/19 02:42 Ammonia 40 mcmol/L (16-53) 06/15/19 17:37 Troponin I < 0.03 ng/mL (< 0.04) 06/16/19 02:10 B-Natriuretic Peptide 65 pg/mL (Less than 100) 06/16/19 02:10 Serum Total Protein 6.4 g/dL (6.4-8.9) 06/17/19 02:42 Albumin 3.9 g/dL (3.5-5.7) 06/17/19 02:42 Globulin 2.5 g/dL (2.4-3.5) 06/17/19 02:42 Albumin/Globulin Ratio 1.6 (1.1-2.2) 06/17/19 02:42 Triglycerides 181 mg/dL (< 150) H 06/16/19 02:10 Cholesterol 136 mg/dL (< 200) 06/16/19 02:10 LDL Cholesterol, Calc 58 mg/dL (0-99) 06/16/19 02:10 VLDL Cholesterol, Calc 36 mg/dL (< 31) H 06/16/19 02:10 HDL Cholesterol 42 mg/dL (40-59) 06/16/19 02:10 Cholesterol/HDL Ratio 3.2 (0-4.9) 06/16/19 02:10 Vitamin B12 250 pg/mL (250-1100) 06/16/19 13:37 Folate > 22.3 ng/mL (3.0-16.0) H 06/16/19 13:37 Procalcitonin < 0.02 ng/mL (0.00-0.15) 06/15/19 09:50 TSH 6.154 mcIU/mL (0.340-5.600) H 06/15/19 09:50 Free T4 0.68 ng/dl (0.70-2.00) L 06/15/19 09:50 Free T3 2.69 pg/mL (2.50-3.90) 06/15/19 09:50 Total T3 1.02 ng/mL (0.87-1.78) 06/15/19 09:50 Urine Color Yellow (Yellow) 06/15/19 10:20 Urine Clarity Clear (Clear) 06/15/19 10:20 Urine pH 6.5 pH Units (5.0-8.0) 06/15/19 10:[address] [place] 1.014 (1.010-1.025) 06/15/19 10:20 Urine Protein Negative mg/dL (Neg-Trace) 06/15/19 10:20 Urine Glucose (UA) Normal mg/dL (Normal) 06/15/19 10:20 Urine Ketones Negative mg/dL (Negative) 06/15/19 10:20 Urine Blood Small (Negative) H 06/15/19 10:20 Urine Nitrite Negative (Negative) 06/15/19 10:20 Urine Bilirubin Negative (Negative) 06/15/19 10:20 Urine Urobilinogen Normal mg/dL (Normal) 06/15/19 10:20 Ur Leukocyte Esterase Negative (Negative) 06/15/19 10:20 Urine Microscopic RBC 5-15 per hpf (0-3) H 06/15/19 10:20 Urine Microscopic WBC 0-3 per hpf (0-3) 06/15/19 10:20 Ur Squamous Epith Cells Moderate per lpf (None-Few) H 06/15/19 10:20 Urine Bacteria None Seen per hpf (None-Few) 06/15/19 10:20 Hyaline Casts None Seen per lpf (None-Few) 06/15/19 10:20 Ur Culture Indicated? NO (NO) 06/15/19 10:20 [place] 0.9 mEq/L (0.6-1.2) 06/17/19 02:42 - Impressions Impressions Echocardiogram 06/16/19 14:08 Impressions: Technically sub-optimal due to poor echocardiographic windows. LVEF 55-60%. Normal LV chamber size and function. Mild concentric left ventricular hypertrophy. Right ventricle was not well visualized. Grossly, it appears mildly dilated with normal function. Atypical septal motion consistent with bundle branch block. No evidence of pulmonary hypertension. No significant valvular dysfunction. Left Ventricular Wall Motion: Rest Echo Findings All wall segments showed normal motion. Findings: Study Quality * Technically sub-optimal due to poor echocardiographic windows. ECG Findings * Sinus rhythm with BBB. Left Ventricle * LVEF 55-60%. * Normal LV chamber size and function. * Mild concentric left ventricular hypertrophy. * Atypical septal motion consistent with bundle branch block. Right Ventricle * Right ventricle was not well visualized. Grossly, it appears mildly dilated with normal function. Left Atrium * Mildly dilated left atrium. Right Atrium * Mildly dilated right atrium. Interatrial Septum * Interatrial septum not well evaluated. Aortic Valve * Aortic valve not well visualized. * No aortic regurgitation. * No aortic stenosis. Mitral Valve * Mitral valve not well visualized. * No mitral regurgitation. * No mitral stenosis. Tricuspid Valve * Normal tricuspid valve structure and function. * Trace tricuspid regurgitation. * No evidence of pulmonary hypertension. Pulmonic Valve * Pulmonic valve not well visualized. * No pulmonic regurgitation. Aorta * Normally sized aortic root. Pericardium * The pericardium appears normal. IVC * Normal IVC dimensions and inspiratory collapse. Pulmonary Artery * Pulmonary artery not well visualized. Consult Discharge Plan - Plan Referrals: NONE,PCP [Primary Care Provider] - - Attending Attestation I examined this patient and my medical decision-making was reviewed with the Resident Physician. I agree with the documented findings, disposition and treatment plan as described except to the extent set forth below. Patient was very sedated when I examined. Recommend continue haldol, benadryl, ativan prn for agitation. Once is more clear to make decisions can consider depakote to replace the lithium that he should not be restrated on. We will follow.
--- NOTE | 2019-06-17 09:14 | Internal Med Progress Note ---
Date of Encounter: 06/17/19 Time of Encounter: 09:13 - Constitutional Vitals: Temp Pulse Resp BP Pulse Ox 99.3 F 82 18 117/71 96 06/17/19 03:58 06/17/19 07:25 06/17/19 03:58 06/17/19 07:25 06/17/19 03:58 General appearance: Present: cooperative, no acute distress Internal Medicine: Result - Labs CBC & Chem 7: 06/17/19 02:42 06/17/19 02:42 Labs: Short CBC 06/17/19 Range/Units 02:42 WBC 15.1 H (4.3-11.1) K/mcL Hgb 10.2 L (12.9-16.9) g/dL Hct 32.0 L (37.5-50.1) % Plt Count 328 (140-400) K/mcL Neutrophils # 12.1 H (1.6-8.9) K/mcL BMP 06/17/19 02:42 Sodium 140 Potassium 3.8 Chloride 108 H Carbon Dioxide 23 BUN 14 Creatinine 1.13 Glucose 95 Calcium 9.8 Liver Function 06/17/19 Range/Units 02:42 Total Bilirubin 0.5 (0.3-1.0) mg/dL AST 14 (13-39) Units/L ALT 22 (7-52) Units/L Alkaline Phosphatase 128 H (34-104) Units/L Albumin 3.9 (3.5-5.7) g/dL - ABG Interpretation ABG results: PT/INR, D-dimer PT 10.9 Seconds (9.4-12.1) 06/15/19 09:50 - Impressions Impressions Echocardiogram 06/16/19 14:08 Impressions: Technically sub-optimal due to poor echocardiographic windows. LVEF 55-60%. Normal LV chamber size and function. Mild concentric left ventricular hypertrophy. Right ventricle was not well visualized. Grossly, it appears mildly dilated with normal function. Atypical septal motion consistent with bundle branch block. No evidence of pulmonary hypertension. No significant valvular dysfunction. Left Ventricular Wall Motion: Rest Echo Findings All wall segments showed normal motion. Findings: Study Quality * Technically sub-optimal due to poor echocardiographic windows. ECG Findings * Sinus rhythm with BBB. Left Ventricle * LVEF 55-60%. * Normal LV chamber size and function. * Mild concentric left ventricular hypertrophy. * Atypical septal motion consistent with bundle branch block. Right Ventricle * Right ventricle was not well visualized. Grossly, it appears mildly dilated with normal function. Left Atrium * Mildly dilated left atrium. Right Atrium * Mildly dilated right atrium. Interatrial Septum * Interatrial septum not well evaluated. Aortic Valve * Aortic valve not well visualized. * No aortic regurgitation. * No aortic stenosis. Mitral Valve * Mitral valve not well visualized. * No mitral regurgitation. * No mitral stenosis. Tricuspid Valve * Normal tricuspid valve structure and function. * Trace tricuspid regurgitation. * No evidence of pulmonary hypertension. Pulmonic Valve * Pulmonic valve not well visualized. * No pulmonic regurgitation. Aorta * Normally sized aortic root. Pericardium * The pericardium appears normal. IVC * Normal IVC dimensions and inspiratory collapse. Pulmonary Artery * Pulmonary artery not well visualized. Consult Discharge Plan - Plan Referrals: NONE,PCP [Primary Care Provider] -
[2019-06-17] MEDS: Nicotine 21 MG PATCH.TD24 TD SCH (10:00)
[2019-06-17] MEDS: Aspirin Enteric Coated 81 MG Tablet PO SCH (10:01)
[2019-06-17] MEDS: BuPROPion XL (24 HR) 150 MG TABLET PO SCH (10:01)
[2019-06-17] MEDS: Folic Acid 1 MG TABLET PO SCH (10:02)
[2019-06-17] MEDS: Famotidine 20 MG TABLET PO SCH ×2 (10:02→17:28)
[2019-06-17] MEDS: Loratadine 10 MG TABLET PO SCH (10:02)
[2019-06-17] MEDS: OLANZapine 5 MG TAB.RAPDIS PO SCH ×2 (10:02→19:51)
--- NOTE | 2019-06-17 13:51 | Internal Med Progress Note ---
<Anne Puri - Last Filed: 06/17/19 16:03> Hospitalist Progress Note - Encounter Date of Encounter: 06/17/19 - Exam Vitals: Temp Pulse Resp BP Pulse Ox 99.9 F H 89 17 124/71 96 06/17/19 11:41 06/17/19 11:41 06/17/19 11:41 06/17/19 11:41 06/17/19 03:58 - Time Spent with Patient Total time spent is greater than 50% in coordination of care (as documented) at patient's floor/unit and/or counseling patient: Internal Medicine: Result - Labs CBC & Chem 7: 06/17/19 02:42 06/17/19 02:42 Labs: Short CBC 06/17/19 Range/Units 02:42 WBC 15.1 H (4.3-11.1) K/mcL Hgb 10.2 L (12.9-16.9) g/dL Hct 32.0 L (37.5-50.1) % Plt Count 328 (140-400) K/mcL Neutrophils # 12.1 H (1.6-8.9) K/mcL BMP 06/17/19 02:42 Sodium 140 Potassium 3.8 Chloride 108 H Carbon Dioxide 23 BUN 14 Creatinine 1.13 Glucose 95 Calcium 9.8 Liver Function 06/17/19 Range/Units 02:42 Total Bilirubin 0.5 (0.3-1.0) mg/dL AST 14 (13-39) Units/L ALT 22 (7-52) Units/L Alkaline Phosphatase 128 H (34-104) Units/L Albumin 3.9 (3.5-5.7) g/dL - ABG Interpretation ABG results: PT/INR, D-dimer PT 10.9 Seconds (9.4-12.1) 06/15/19 09:50 Consult Discharge Plan - Plan Referrals: NONE,PCP [Primary Care Provider] - - Attending Attestation The history, physical exam, and medical decision making was performed by the medical student either while I was physically present and actively involved or I personally re-performed the exam and medical decision making. I have verified the accuracy of the medical student's documentation with regards to the history, physical exam findings, and medical decision making. Mr Boucher is being observed for possible ischemic chest pain, Encephaloapthy and lithium toxicity awake,sitter at bedside, he is less interactive today, seems to choose what questions he will answer, does smile, asking for his family to come see him. Denies cp, abd pain, sob. Doesn't answer other ROS questions. Sitter at bedside notes he independently walked to bathroom and urinated earlier. Has not yet eaten today. Resting in bed most of morning and no agitation noted by her. gen- alert, awake,appears stated age, nad cv- reg rate and rhythm, normal s1,s2, no le edema lungs- ctabl, normal resp effort on room air abd- soft , nt, nd neuro- alert, cannot assess orientation, CN grossly intact, moves all ext spontaneously without focal deficit noted Acute Encephalopathy , clinically unable to determine cause at this time- needing assistance from alf to assess if he is back to baseline Suspect was related to Mild Hagaman Toxicity, less likely Seizure, no apparent infection despite leukocytosis, unlikley CVA given no other neurologic findings, ruling out Trileptal toxic level Baseline mentation is will answer his name, would not know date or location, t ypically answers questions but when mad will stare and not answer, is independent in ADLs, does NOT administer his own meds [facility] confirmed he is his own decision maker and is a Full code status -sitter and treatment as below -SW attempting to have staff from alf visit to assess mentation compared to baseline -trileptal level pending, if elevated will need to decrease dose Chest Pain, w abn ekg-appreciate cards input, he will need outpt fu, no inpt ischemic work up recommended, off hep gtt Hx Seizures, New onset staring spells/eye fluttering -s/p EEG, appreciate neuro input, cont home meds + new keppra and will rec to cont on dc, no driving -fu with Dr Wade outpt on dc Suspected Mild Hagaman Toxicity, resolved- appreciate neuro and nephro input -psych is consulted and will discuss with pt and consider schizophrenia med changes Leukocytosis suspect may be reactive as infectious work up negative CXR neg, UA neg, procal neg -will cont to monitor for s/s of infection, no abx at this time Schizophrenia -psychiatry team will be evaluationg pt, now with lithium out of his system he is missing part of his home regimen and further med adjustments will need made, prn PO haldol for agitation, as d/w psych can also use prn IV ativan and benadryl if needed for agitation -further med changes pending psych eval -given his mental status is not his baseline medical hold in place med rec is now complete, appears he takes wellbutrin xl as well, will hold on s tarting today and fu psych recs regarding meds/samantha in setting of seizures as above Chronic anemia at baseline <Godfrey Nice - Last Filed: 06/17/19 16:24> Hospitalist Progress Note - Encounter Date of Encounter: 06/17/19 Time of Encounter: 13:51 - Subjective Interval History: Pt was asleep with lights off in room upon my arrival. Sitter was present. I was able to wake up pt and ask him if he had been experiencing any chest pains or abdominal pain and he shook his head no to both. Spoke with sitter in the room and she reported no overnight events. - Exam Vitals: Temp Pulse Resp BP Pulse Ox 99.9 F H 89 17 124/71 96 06/17/19 11:41 06/17/19 11:41 06/17/19 11:41 06/17/19 11:41 06/17/19 03:58 Exam: Gen: NAD, cooperative, able to respond to questions with head nods CVS: RRR, S1, S2, no mumurs present Lungs: Normal effort, CTA BL, no rhonchi, no rales Abdominal: non tender, no guarding, soft Extremities: warm to touch, dry, dorsal pedal pulses strong B/L - Assessment and Plan (1) Altered mental status Current Visit: Yes Status: Acute Assessment and Plan: Pt is current resident of a alf; upon admission alf stated that pt had been acting different which prompted hospital visit Clinically unable to determine cause at this time Baseline mentation is that he can answer his name, however cannot name date or location. [facility] has confirmed he is his own decision maker and is full code status Pt had elevated lithium upon admission; has since declined to 0.9 Continue with sitter Continue to follow with psych (2) Chest pain Current Visit: Yes Status: Acute Assessment and Plan: Upon admission, pt was complaining of chest pain. EKG findings on admission were concerning for STEMI; cardiology was consulted and felt catheterization was not appropriate pt started on aspirin and heparin pt currently pain free echo 06/16 per chart heparin d/c, continue aspirin will continue to follow and monitor for any symptoms is advised patient follow up with cardiology in an outpatient setting (3) Acute electrocardiogram changes Current Visit: Yes Status: Acute Assessment and Plan: initial EKG upon admission was concerning for STEMI; cardiology consulted follow with cardiology in an outpatient setting (4) Hagaman toxicity Current Visit: Yes Status: Acute Assessment and Plan: Hagaman level 2.0 upon admission 06/15/2019 Levels have dropped to 0.9 06/17/2019 psychiatry has been consulted and is following continue to hold lithium per psych possible switch to depakote per psych continue to follow (5) History of seizure disorder Current Visit: Yes Status: Acute Assessment and Plan: episodes of eye fluttering during admission neuro consulted; EEG performed 06/16 continue home tripleptal; continue to follow with neuro monitor for any changes (6) Leukocytosis Current Visit: Yes Status: Acute Assessment and Plan: Leukocytosis upon admission CXR negative, UA negative, procalcitonin negative patient remains afebrile; may be reactive in nature withhold abx continue to monitor for any signs of infection (stomach pains, diarrhea, wounds) (7) Schizophrenia Current Visit: Yes Status: Chronic Assessment and Plan: Pt has known history of schizophrenia; has been trying to get out of bed/leave room/ pull out IV since admission Sitter had no overnight events Expect possible schizophrenia exacerbation now that lithium levels are lowering Psych is following Haloperidol/ativan for agitation Continue to monitor (8) Anemia Current Visit: Yes Status: Acute Assessment and Plan: monitor hgb DVT Prophylaxis: will start sub-q heparin - Time Spent with Patient Total time spent is greater than 50% in coordination of care (as documented) at patient's floor/unit and/or counseling patient: Internal Medicine: Result - Labs CBC & Chem 7: 06/17/19 02:42 06/17/19 02:42 Labs: Short CBC 06/17/19 Range/Units 02:42 WBC 15.1 H (4.3-11.1) K/mcL Hgb 10.2 L (12.9-16.9) g/dL Hct 32.0 L (37.5-50.1) % Plt Count 328 (140-400) K/mcL Neutrophils # 12.1 H (1.6-8.9) K/mcL BMP 06/17/19 02:42 Sodium 140 Potassium 3.8 Chloride 108 H Carbon Dioxide 23 BUN 14 Creatinine 1.13 Glucose 95 Calcium 9.8 Liver Function 06/17/19 Range/Units 02:42 Total Bilirubin 0.5 (0.3-1.0) mg/dL AST 14 (13-39) Units/L ALT 22 (7-52) Units/L Alkaline Phosphatase 128 H (34-104) Units/L Albumin 3.9 (3.5-5.7) g/dL - ABG Interpretation ABG results: PT/INR, D-dimer PT 10.9 Seconds (9.4-12.1) 06/15/19 09:50 <Godfrey Nice R - Last Filed: 06/17/19 16:24> (1) Altered mental status Qualifiers: Qualified Code(s): R41.82 - Altered mental status, unspecified (2) Chest pain Qualifiers: Chest pain type: unspecified Qualified Code(s): R07.9 - Chest pain, unspecified (4) Hagaman toxicity Qualifiers: Encounter type: sequela Injury intent: undetermined intent Qualified Code(s): T56.894S - Toxic effect of other metals, undetermined, sequela (6) Leukocytosis Qualifiers: Qualified Code(s): D72.829 - Elevated white blood cell count, unspecified (7) Schizophrenia Qualifiers: Schizophrenia type: unspecified Qualified Code(s): F20.9 - Schizophrenia, unspecified
[2019-06-17] MEDS: OXcarbazepine 150 MG TABLET PO SCH ×2 (14:40→19:51)
--- NOTE | 2019-06-17 15:43 | Electrocardiograph Report ---
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
--- NOTE | 2019-06-17 15:43 | Electrocardiograph Report ---
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
[2019-06-18 04:57] LABS: Basophils % 0.3 %; Eosinophils # 0.3 K/mcL (0.0-0.6); Eosinophils % 2.6 %; Hematocrit 32.5 % (37.5-50.1); Hemoglobin 10.5 g/dL (12.9-16.9); Immature Granulocytes % 0.8 % (0-4); Lymphocytes # 1.2 K/mcL (0.6-4.6); Lymphocytes % 9.2 %; Mean Corpuscular HGB Conc 32.3 g/dL (31.6-35.5); Mean Corpuscular Hemoglobin 29.8 pg (28.0-33.3); Mean Corpuscular Volume 92.3 fL (83.0-100.0); Mean Platelet Volume 8.3 fL (9.4-12.4); Monocytes # 1.3 K/mcL (0.0-1.3); Monocytes % 9.8 %; Neutrophils # 10.3 K/mcL (1.6-8.9); Platelet Count 301 K/mcL (140-400); Red Blood Count 3.52 M/mcL (4.19-5.50); Red Cell Distribution Width 15.2 % (11.5-14.5); Segmented Neutrophils % 77.3 %; White Blood Count 13.3 K/mcL (4.3-11.1)
[2019-06-18 05:16] LABS: BUN/Creatinine Ratio 14 (6-26); Blood Urea Nitrogen 17 mg/dL (6-20); Calcium 9.8 mg/dL (8.6-10.3); Carbon Dioxide 20 mEq/L (23-29); Chloride 108 mEq/L (98-107); Glucose 104 mg/dL (70-105); Osmolality,Calculated 286 (280-300); Potassium 3.7 mEq/L (3.5-5.1); Sodium 137 mEq/L (136-145); eGFR For African Americans > 60 (> 60); eGFR For Non-African Americans > 60 (> 60)
[2019-06-18] MEDS: *HR* Heparin 5,000 UNIT/ML VIAL SQ SCH ×3 (05:36→21:57)
[2019-06-18] MEDS: levETIRAcetam 250 MG TABLET PO SCH ×2 (05:36→17:09)
[2019-06-18] MEDS: BuPROPion XL (24 HR) 150 MG TABLET PO SCH (09:09)
[2019-06-18] MEDS: OXcarbazepine 150 MG TABLET PO SCH ×2 (09:09→20:04)
[2019-06-18] MEDS: Folic Acid 1 MG TABLET PO SCH (09:09)
[2019-06-18] MEDS: Aspirin Enteric Coated 81 MG Tablet PO SCH (09:09)
[2019-06-18] MEDS: Famotidine 20 MG TABLET PO SCH ×2 (09:10→17:10)
[2019-06-18] MEDS: Loratadine 10 MG TABLET PO SCH (09:10)
[2019-06-18] MEDS: Nicotine 21 MG PATCH.TD24 TD SCH (09:11)
[2019-06-18] MEDS: OLANZapine 5 MG TAB.RAPDIS PO SCH ×2 (09:17→20:05)
--- NOTE | 2019-06-18 09:27 | Psychiatry Progress Note ---
Date of Encounter: 06/18/19 Time of Encounter: 09:27 Subjective Interval history: Mr. Boucher was seen and evaluated at the bedside this morning. He wakes easily to voice, and does respond appropriately to questions. He inquires as to when he may be going home, and appears to be eager for hospital discharge. He is less somnolent today versus yesterday. Nursing staff reports no significant overnight events. Review of Systems Psychiatric: Denies: depression, anxiety, abnormal sleep pattern, auditory hallucinations, visual hallucinations Results - Vital Signs Vital Signs: Temp Pulse Resp BP Pulse Ox 98.5 F 86 16 114/73 96 06/18/19 08:19 06/18/19 08:19 06/18/19 05:59 06/18/19 08:19 06/18/19 04:58 - Drug Levels and Toxicology Drug Levels and Toxicology: Drug Levels and Toxicity 06/18/19 04:37 [place] 0.7 - Labs Labs: Laboratory Results - last 24 hr 06/16/19 06/17/19 06/18/19 13:37 11:28 04:37 WBC RBC Hgb Hct MCV MCH MCHC RDW Plt Count MPV Immature Gran % Seg Neutrophils % Lymphocytes % Monocytes % Eosinophils % Basophils % Neutrophils # Lymphocytes # Monocytes # Eosinophils # Basophils # Sodium Potassium Chloride Carbon Dioxide BUN Creatinine Est GFR ( Amer) Est GFR (Non-Af Amer) BUN/Creatinine Ratio Glucose POC Glucose 126 H Calculated Osmolality Calcium [place] 0.7 Specimen Rejected Accident 06/18/19 06/18/19 04:37 04:37 WBC 13.3 H RBC 3.52 L Hgb 10.5 L Hct 32.5 L MCV 92.3 MCH 29.8 MCHC 32.3 RDW 15.2 H Plt Count 301 MPV 8.3 L Immature Gran % 0.8 Seg Neutrophils % 77.3 Lymphocytes % 9.2 Monocytes % 9.8 Eosinophils % 2.6 Basophils % 0.3 Neutrophils # 10.3 H Lymphocytes # 1.2 Monocytes # 1.3 Eosinophils # 0.3 Basophils # 0.0 Sodium 137 Potassium 3.7 Chloride 108 H Carbon Dioxide 20 L BUN 17 Creatinine 1.23 Est GFR ( Amer) > 60 Est GFR (Non-Af Amer) > 60 BUN/Creatinine Ratio 14 Glucose 104 POC Glucose Calculated Osmolality 286 Calcium 9.8 [place] Specimen Rejected - Impressions ITS Impressions Chest X-Ray 06/15/19 10:25 IMPRESSION: Cardiomegaly with mild asymmetric ground-glass opacification at the left lung base. Pattern suspected to represent asymmetric edema or atelectasis. Underlying pneumonitis would be considered less likely. D/ / Frandy Johnson MD / Frandy Johnson MD Interpreting Provider: Frandy Johnson MD Head CT 06/15/19 10:52 IMPRESSION: 1. No acute intracranial abnormality. 2. New right mastoid effusion with unchanged left mastoid effusion. Unchanged ethmoid sinus disease. D/ / Lb Jorge MD / Lb Jorge MD Interpreting Provider: Lb Jorge MD Echocardiogram 06/16/19 14:08 Impressions: Technically sub-optimal due to poor echocardiographic windows. LVEF 55-60%. Normal LV chamber size and function. Mild concentric left ventricular hypertrophy. Right ventricle was not well visualized. Grossly, it appears mildly dilated with normal function. Atypical septal motion consistent with bundle branch block. No evidence of pulmonary hypertension. No significant valvular dysfunction. Left Ventricular Wall Motion: Rest Echo Findings All wall segments showed normal motion. Findings: Study Quality * Technically sub-optimal due to poor echocardiographic windows. ECG Findings * Sinus rhythm with BBB. Left Ventricle * LVEF 55-60%. * Normal LV chamber size and function. * Mild concentric left ventricular hypertrophy. * Atypical septal motion consistent with bundle branch block. Right Ventricle * Right ventricle was not well visualized. Grossly, it appears mildly dilated with normal function. Left Atrium * Mildly dilated left atrium. Right Atrium * Mildly dilated right atrium. Interatrial Septum * Interatrial septum not well evaluated. Aortic Valve * Aortic valve not well visualized. * No aortic regurgitation. * No aortic stenosis. Mitral Valve * Mitral valve not well visualized. * No mitral regurgitation. * No mitral stenosis. Tricuspid Valve * Normal tricuspid valve structure and function. * Trace tricuspid regurgitation. * No evidence of pulmonary hypertension. Pulmonic Valve * Pulmonic valve not well visualized. * No pulmonic regurgitation. Aorta * Normally sized aortic root. Pericardium * The pericardium appears normal. IVC * Normal IVC dimensions and inspiratory collapse. Pulmonary Artery * Pulmonary artery not well visualized. Assessment and Plan (1) Schizophrenia Current visit: Yes Status: Chronic Plan: Close observation, Monitor sleep, Monitor appetite Additional Plan: Patient appears to be less somnolent today, and is interactive and answering questions appropriately. He inquires as to when he might be able to get out of the hospital. Nursing staff reports no significant overnight events, including behavioral disturbances or increased agitation. At this time, patient is on two FDA approved medications for mood stabilization (olanzapine and oxcarbazepine); additionally, his home medication list includes Haldol decanoate 100mg Q2W (last administered 06/13/2019). Recommend continuing current medication regimen, with discontinuation of lithium noted on home medications list at time of discharge. Patient can follow-up with outpatient psychiatrist after this hospitalization to determine if additional mood agent is needed. Risks, benefits, side effects, alternatives discussed w/pt: Yes Patient agreeable to treatment: Yes Qualifiers: Schizophrenia type: unspecified Qualified Code(s): F20.9 - Schizophrenia, unspecified Consult Discharge Plan - Plan Referrals: NONE,PCP [Primary Care Provider] - - Attending Attestation I examined this patient and my medical decision-making was reviewed with the Resident Physician. I agree with the documented findings, disposition and treatment plan as described except to the extent set forth below. Patient more clear today. Its unsure if this is his baseline. Would recommend continuing to try to get his bilingual patient support caseworker or someone from his custodial involved to see if he is back to baseline. I recommend continuing him off the lithium. He gets Haldol decanoate, long-acting injectable antipsychotic in the community. His last dose was 06/13. He will be due again 2 weeks after that date. He also gets olanzapine which is FDA approved for both psychosis and mood stabilization and oxcarbazepine which is used for mood stabilization. As such I do not see a need for additional medication at this time particularly as he was well behaved this morning and pleasant. His outpatient team can continue to monitor and reevaluate if he would need another mood stabilizer in the future. -Dr. Erica Natarajan Psychiatry Exam - Constitutional Vitals: Temp Pulse Resp BP Pulse Ox 98.5 F 86 16 114/73 96 06/18/19 08:19 06/18/19 08:19 06/18/19 05:59 06/18/19 08:19 06/18/19 04:58 - Musculoskeletal Strength & Tone: normal for patient (grossly normal on observation) - Psychiatric Level of alertness: Alert Behavior: calm, cooperative Psychomotor activity: Normal Eye Contact: Maintains Eye Contact Mood Description: Euthymic/stable Affect description: congruent with mood, full range Speech Volume: Normal Speech pattern: normal rate, garbled (improved versus yesterday) Perceptual Disturbances: No Reacting to internal stimuli, No Auditory hallucinations, No Visual hallucinations Attention Span Ability: Capable of Focused Attention Patient Reliability: Questionable Historian
--- NOTE | 2019-06-18 09:28 | Internal Med Progress Note ---
<Richmond Wise - Last Filed: 06/18/19 14:22> Hospitalist Progress Note - Encounter Date of Encounter: 06/18/19 - Exam Vitals: Temp Pulse Resp BP Pulse Ox 98.5 F 86 16 114/73 96 06/18/19 08:19 06/18/19 08:19 06/18/19 05:59 06/18/19 08:19 06/18/19 04:58 - Assessment and Plan (1) Toxic encephalopathy Current Visit: Yes Status: Acute (2) [place] toxicity Current Visit: Yes Status: Acute (3) Anemia Current Visit: Yes Status: Suspected (4) Hypertension Current Visit: Yes Status: Chronic (5) Schizophrenia Current Visit: Yes Status: Chronic (6) Tobacco abuse Current Visit: Yes Status: Chronic - Time Spent with Patient Total time spent is greater than 50% in coordination of care (as documented) at patient's floor/unit and/or counseling patient: Internal Medicine: Result - Labs CBC & Chem 7: 06/18/19 04:37 06/18/19 04:37 Labs: Short CBC 06/18/19 Range/Units 04:37 WBC 13.3 H (4.3-11.1) K/mcL Hgb 10.5 L (12.9-16.9) g/dL Hct 32.5 L (37.5-50.1) % Plt Count 301 (140-400) K/mcL Neutrophils # 10.3 H (1.6-8.9) K/mcL BMP 06/18/19 04:37 Sodium 137 Potassium 3.7 Chloride 108 H Carbon Dioxide 20 L BUN 17 Creatinine 1.23 Glucose 104 Calcium 9.8 - ABG Interpretation ABG results: PT/INR, D-dimer PT 10.9 Seconds (9.4-12.1) 06/15/19 09:50 Consult Discharge Plan - Plan Referrals: NONE,PCP [Primary Care Provider] - - Attending Attestation The history, physical exam, and medical decision making was performed by the medical student either while I was physically present and actively involved or I personally re-performed the exam and medical decision making. I have verified the accuracy of the medical student's documentation with regards to the history, physical exam findings, and medical decision making on 06/18/19. Mr Boucher is currently admitted for acute toxic encephalopathy and lithium toxicity. He remains moderate to high risk due to potential for worsening clinical status. Mr Boucher is alert and interactive. Denies pain at this time. No fever or chills. No dyspnea. Exam: Alert. Comfortable. NC. Mucus membranes dry. EOMI. Neck supple. Heart reg and not tachy. No wheeze. Abd soft. Moves all extremities. No rash. No edema I/P 1. Acute toxic encephalopathy - resolved. 2. [place] toxicity 3. Schizophrenia Further diagnoses and plan as above. [facility] [place] [facility] assessment - anticipate d/c tomorrow. <Godfrey Nice - Last Filed: 06/18/19 15:15> Hospitalist Progress Note - Encounter Date of Encounter: 06/18/19 Time of Encounter: 09:37 - Subjective Interval History: Patient was asleep upon my arrival to room. Was able to wake him up and he stated his name and date of . Denied any chest pains, abdominal pains, said he slept good. Nurse in room administering meds stated no overnight events. - Exam Vitals: Temp Pulse Resp BP Pulse Ox 98.5 F 86 16 114/73 96 06/18/19 08:19 06/18/19 08:19 06/18/19 05:59 06/18/19 08:19 06/18/19 04:58 Exam: Gen: NAD, cooperative, can state name and date of CVS: RRR, S1, S2, no mumurs present Lungs: Normal effort, CTA BL, no rhonchi, no rales Abdominal: non tender, no guarding, soft Extremities: warm to touch, dry, dorsal pedal pulses strong B/L - Assessment and Plan (1) Toxic encephalopathy Current Visit: Yes Status: Resolved Assessment and Plan: -Pt is current resident of a [place] [facility]; upon [place] [facility] stated that pt had been acting different which prompted hospital visit -Clinically unable to determine cause at this time -Baseline mentation is that he can answer his name, however cannot name date or location. -[facility] has confirmed he is his own decision maker and is full code status -Pt had elevated lithium upon admission; has since declined to 0.9 -[place] level 0.7 06/18 -Mental status has improved, hard to determine what is baseline -Psych following -Plan on d/c tomorrow if [facility] accounting representative can come confirm this is his baseline (2) Chest pain Current Visit: Yes Status: Acute Assessment and Plan: -Upon admission, pt was complaining of chest pain. -EKG findings on admission were concerning for STEMI; cardiology was consulted and felt catheterization was not appropriate -pt started on aspirin and heparin -pt currently pain free -echo 06/16 per chart -heparin d/c, continue aspirin -will continue to follow and monitor for any symptoms -is advised patient follow up with cardiology in an outpatient setting (3) Acute electrocardiogram changes Current Visit: Yes Status: Acute Assessment and Plan: -initial EKG upon admission was concerning for STEMI; cardiology consulted -follow with cardiology in an outpatient setting (4) [place] toxicity Current Visit: Yes Status: Acute Assessment and Plan: -[place] level 2.0 upon admission 06/15/2019 -Levels have dropped to 0.9 06/17/2019 -[place] level 0.7 06/18/2019 -Psych recommends d/c lithium; current olanzapine/oxcarbazepine sufficient -Appreciate psych input; pt recommended to followup with psych in outpatient setting -Continue to monitor for changes (5) History of seizure disorder Current Visit: Yes Status: Acute Assessment and Plan: -episodes of eye fluttering during admission -neuro consulted; EEG performed 06/16 -continue home tripleptal; continue to follow with neuro -monitor for any changes (6) Leukocytosis Current Visit: Yes Status: Acute Assessment and Plan: -CXR negative, UA negative, procalcitonin negative -pt did have temp of 99.7 on 06/17 but has dropped to 98.5 today; may be reactive in nature -withhold abx -continue to monitor for any signs of infection (stomach pains, diarrhea, wounds) (7) Schizophrenia Current Visit: Yes Status: Chronic Assessment and Plan: -Pt has known history of schizophrenia and has expressed some agitated behavior during hospital stay -Psych following -Continue Haldol/ativan for agitation -Withhold lithium per psych -Mood stabilizer medication recommendations per psych -Continue to follow (8) Anemia Current Visit: Yes Status: Suspected Assessment and Plan: -Continue to monitor hgb DVT Prophylaxis: will start sub-q heparin - Time Spent with Patient Total time spent is greater than 50% in coordination of care (as documented) at patient's floor/unit and/or counseling patient: Internal Medicine: Result - Labs CBC & Chem 7: 06/18/19 04:37 06/18/19 04:37 Labs: Short CBC 06/18/19 Range/Units 04:37 WBC 13.3 H (4.3-11.1) K/mcL Hgb 10.5 L (12.9-16.9) g/dL Hct 32.5 L (37.5-50.1) % Plt Count 301 (140-400) K/mcL Neutrophils # 10.3 H (1.6-8.9) K/mcL BMP 06/18/19 04:37 Sodium 137 Potassium 3.7 Chloride 108 H Carbon Dioxide 20 L BUN 17 Creatinine 1.23 Glucose 104 Calcium 9.8 - ABG Interpretation ABG results: PT/INR, D-dimer PT 10.9 Seconds (9.4-12.1) 06/15/19 09:50 <Richmond Wise - Last Filed: 06/18/19 14:22> (2) [place] toxicity Qualifiers: Encounter type: sequela Injury intent: accidental or unintentional Qualified Code(s): T56.891S - Toxic effect of other metals, accidental (unintentional), sequela (3) Anemia Qualifiers: Anemia type: other cause Other causes of anemia: chronic disease, other Qual ified Code(s): D63.8 - Anemia in other chronic diseases classified elsewhere (4) Hypertension Qualifiers: Hypertension type: essential hypertension Qualified Code(s): I10 - Essential (primary) hypertension (5) Schizophrenia Qualifiers: Schizophrenia type: unspecified Qualified Code(s): F20.9 - Schizophrenia, unspecified <Godfrey Nice - Last Filed: 06/18/19 15:15> (2) Chest pain Qualifiers: Chest pain type: unspecified Qualified Code(s): R07.9 - Chest pain, unspecified (4) [place] toxicity Qualifiers: Encounter type: sequela Injury intent: accidental or unintentional Qualified Code(s): T56.891S - Toxic effect of other metals, accidental (unintentional), sequela (6) Leukocytosis Qualifiers: Qualified Code(s): D72.829 - Elevated white blood cell count, unspecified (7) Schizophrenia Qualifiers: Schizophrenia type: unspecified Qualified Code(s): F20.9 - Schizophrenia, unspecified (8) Anemia Qualifiers: Anemia type: other cause Other causes of anemia: chronic disease, other Qualified Code(s): D63.8 - Anemia in other chronic diseases classified elsewhere
[2019-06-19] MEDS: levETIRAcetam 250 MG TABLET PO SCH ×2 (05:30→17:28)
[2019-06-19] MEDS: *HR* Heparin 5,000 UNIT/ML VIAL SQ SCH ×2 (05:30→14:17)
[2019-06-19 06:27] LABS: Basophils # 0.1 K/mcL (0.0-0.2); Basophils % 0.4 %; Eosinophils # 0.4 K/mcL (0.0-0.6); Eosinophils % 3.3 %; Hematocrit 31.9 % (37.5-50.1); Hemoglobin 10.3 g/dL (12.9-16.9); Lymphocytes % 7.9 %; Mean Corpuscular HGB Conc 32.3 g/dL (31.6-35.5); Mean Corpuscular Hemoglobin 29.5 pg (28.0-33.3); Mean Corpuscular Volume 91.4 fL (83.0-100.0); Mean Platelet Volume 8.6 fL (9.4-12.4); Monocytes # 1.1 K/mcL (0.0-1.3); Monocytes % 9.1 %; Neutrophils # 9.9 K/mcL (1.6-8.9); Platelet Count 332 K/mcL (140-400); Red Blood Count 3.49 M/mcL (4.19-5.50); Red Cell Distribution Width 15.1 % (11.5-14.5); Segmented Neutrophils % 78.3 %; White Blood Count 12.6 K/mcL (4.3-11.1)
[2019-06-19 06:45] LABS: BUN/Creatinine Ratio 12 (6-26); Blood Urea Nitrogen 13 mg/dL (6-20); Calcium 9.7 mg/dL (8.6-10.3); Carbon Dioxide 24 mEq/L (23-29); Chloride 108 mEq/L (98-107); Glucose 119 mg/dL (70-105); Osmolality,Calculated 293 (280-300); Potassium 3.6 mEq/L (3.5-5.1); Sodium 141 mEq/L (136-145); eGFR For African Americans > 60 (> 60); eGFR For Non-African Americans > 60 (> 60)
[2019-06-19] MEDS ORDERED: Potassium Chloride Elixir 20 MEQ/15 ML UDC PO ONE (07:40)
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
[2019-06-19] MEDS: Famotidine 20 MG TABLET PO SCH ×2 (09:14→17:28)
[2019-06-19] MEDS: Folic Acid 1 MG TABLET PO SCH (09:14)
[2019-06-19] MEDS: Loratadine 10 MG TABLET PO SCH (09:14)
[2019-06-19] MEDS: Aspirin Enteric Coated 81 MG Tablet PO SCH (09:14)
[2019-06-19] MEDS: OLANZapine 5 MG TAB.RAPDIS PO SCH (09:14)
[2019-06-19] MEDS: OXcarbazepine 150 MG TABLET PO SCH (09:15)
[2019-06-19] MEDS: BuPROPion XL (24 HR) 150 MG TABLET PO SCH (09:15)
[2019-06-19] MEDS: Nicotine 21 MG PATCH.TD24 TD SCH (09:15)
--- NOTE | 2019-06-19 14:32 | Discharge Summary ---
<Osvaldo Blackburn - Last Filed: 06/19/19 16:55> - NOTES TO OUTPATIENT PROVIDER Notes to Outpatient Provider: Patient was seen for acute agitation, chest pain, abdominal pain. Admitted to the hospitalist unit for lithium toxicity. Cardiac w/u was concerning for STEMI, cardio was consulted and recommended outpatient f/u. Pysch consulted, recommended discontinuing lithium, started on olanzapine and oxcarbamazepine for agitation, hallucination, mood disorder. Pt returned to baseline. Agreed to be discharge to current [facility] with plan to be moved to new home within 1 week. Important to follow-up with psychiatry for continued management. PCP and cardiology routine follow-up. Orders not resulted at time of discharge: Pending orders 06/16/19 13:37 Vitamin B1 (Thiamine) Whole Bl Routine 06/17/19 02:42 Oxcarbazepine AM 0400 Date of Encounter: 06/19/19 Time of Encounter: 08:30 - Discharge Diagnosis (1) [place] toxicity Priority: Primary Status: Resolved Assessment and Plan: Patient is now at baseline. [place] levels down to from 2.0 at admission to 0.7. He is aware to person, . Minimal confusion, responding to questions. - [place] was d/c per psych. - Pt was started on Olanzapine and oxacarbamazepine for schizophrenia. Qualifiers: Encounter type: sequela Injury intent: accidental or unintentional Qualified Code(s): T56.891S - Toxic effect of other metals, accidental (unintentional), sequela (2) Toxic encephalopathy Priority: Secondary Status: Resolved Assessment and Plan: Pt was admitted for acute agitation and paranoia. Treated with PRN PO Haldol. Psych was consulted and recommended d/c of lithium. Pt was started on olanzapine and oxcarbamazepine. - SW consulted with patient in [facility]. Pt was in agreement to be discharged to current [facility] with plans to be moved within a week. (3) Schizophrenia Priority: Secondary Status: Chronic Assessment and Plan: Patient interactive, awake, responding and answering questions at evaluation. Appears to be at baseline. [place] has been d/c. - Continue Olanzapine and Oxcarbazepine per psych. - Avoid QT prolongation medications at discharge. - SW confirmed with [facility] that pt is at baseline. Ready for discharge. Qualifiers: Schizophrenia type: unspecified Qualified Code(s): F20.9 - Schizophrenia, unspecified (4) Acute electrocardiogram changes Priority: Secondary Status: Suspected Assessment and Plan: EKG at admission was concerning for STEMI. Cardiology was consulted, EKG did not meet STEMI criteria. Rec f/u as op secondary to AMS. - Routine f/u with cardiology as op. Hospital course: Mr. Boucher is a 48 year old male w/PMHx depression, schizophrenia. Presented to ED on 06/15/19 for acute agitation, chest pain, abdominal pain. EKG was concerning for STEMI, serial troponins negative. Cardiology was consulted and recommended outpatient follow-up. Further cardiology w/u was negative. ASA and heparin were started. 5 mg haldol PO was given for acute agitation. Initial lithium level was 2.0. Pt admitted for AMS and acute lithium toxicity. Psychiatry was consulted and recommeded to discontinue lithium and start olanzapine and oxcarbamazepam for schizophrenia and mood disorder. Patients mental status improved considerably and he was back to baseline today 06/19/19. Staff from his [facility] met with SW who indeed confirmed pt was at baseline. Discharge discussed with: patient, social work - Time Spent with Patient Total time spent providing and/or coordinating discharge services: Time spent: Greater than 30 minutes - Discharge Medications Prescriptions: New levETIRAcetam [Keppra] 500 mg PO Q12HR 30 Days #30 tablet OXcarbazepine [Trileptal] 600 mg PO BID tablet Continued Pravastatin Sodium [Pravachol] 80 mg PO 2000 Docusate Sodium [Colace] 100 mg PO BID #14 capsule Acetaminophen [Tylenol] 650 mg PO Q4H PRN PRN Reason: Pain Cetirizine HCl [Zyrtec] 10 mg PO DAILY Cholecalciferol (D-3) [Vitamin D] 2,000 unit PO DAILY Ibuprofen [Motrin Ib] 400 mg PO Q4H PRN PRN Reason: Pain L. Rhamnosus GG/Inulin [Culturelle Digest 10B Cell Cap] 1 tab PO DAILY OLANZapine [Zyprexa] 15 mg PO HS OLANZapine [Zyprexa] 5 mg PO QAM Polyethylene Glycol 3350 [MiraLAX Powder Bulk 17.9 Oz] 1 scoop PO DAILY Haloperidol Decanoate [Haldol Decanoate 100] 100 mg IM Q2W Bupropion HCl [Wellbutrin Xl] 300 mg PO DAILY Carbamide Peroxide [Debrox] 3 drop BOTH EARS AD Clindamycin Phosphate [Clindagel] 1 appl TP DAILY PRN PRN Reason: Acne Famotidine [Pepcid] 20 mg PO BID Ferrous Sulfate [Iron] 325 mg PO BID Folic Acid 1 mg PO DAILY Lisinopril [Zestril] 10 mg PO DAILY Oxybutynin Chloride [Ditropan XL] 5 mg PO DAILY Polyvinyl Alcohol/Povidone/Pf [Refresh Classic Eye Drops] 1 drop BOTH EYES DAILY Propylene Glycol/Peg 400 [Systane Gel Eye Drops] 1 - 2 drop BOTH EYES HS Discontinued [place] Carbonate 600 mg PO BID Home Medications: Pravastatin Sodium [Pravachol] 80 mg PO 2000 05/30/15 [History] Docusate Sodium [Colace] 100 mg PO BID #14 capsule 03/19/16 [Rx] Acetaminophen [Tylenol] 650 mg PO Q4H PRN 01/03/18 [History] Cetirizine HCl [Zyrtec] 10 mg PO DAILY 01/03/18 [History] Cholecalciferol (D-3) [Vitamin D] 2,000 unit PO DAILY 01/03/18 [History] Haloperidol Decanoate [Haldol Decanoate 100] 100 mg IM Q2W 01/03/18 [History] Ibuprofen [Motrin Ib] 400 mg PO Q4H PRN 01/03/18 [History] L. Rhamnosus GG/Inulin [Culturelle Digest 10B Cell Cap] 1 tab PO DAILY 01/03/18 [History] OLANZapine [Zyprexa] 5 mg PO QAM 01/03/18 [History] OLANZapine [Zyprexa] 15 mg PO HS 01/03/18 [History] Polyethylene Glycol 3350 [MiraLAX Powder Bulk 17.9 Oz] 1 scoop PO DAILY 01/03/18 [History] Bupropion HCl [Wellbutrin Xl] 300 mg PO DAILY 06/16/19 [History] Carbamide Peroxide [Debrox] 3 drop BOTH EARS AD 06/16/19 [History] Clindamycin Phosphate [Clindagel] 1 appl TP DAILY PRN 06/16/19 [History] Famotidine [Pepcid] 20 mg PO BID 06/16/19 [History] Ferrous Sulfate [Iron] 325 mg PO BID 06/16/19 [History] Folic Acid 1 mg PO DAILY 06/16/19 [History] Lisinopril [Zestril] 10 mg PO DAILY 06/16/19 [History] Oxybutynin Chloride [Ditropan XL] 5 mg PO DAILY 06/16/19 [History] Polyvinyl Alcohol/Povidone/Pf [Refresh Classic Eye Drops] 1 drop BOTH EYES DAILY 06/16/19 [History] Propylene Glycol/Peg 400 [Systane Gel Eye Drops] 1 - 2 drop BOTH EYES HS 06/16/19 [History] OXcarbazepine [Trileptal] 600 mg PO BID tablet 06/19/19 [Rx] levETIRAcetam [Keppra] 500 mg PO Q12HR 30 Days #30 tablet 06/19/19 [Rx] Allergies/Adverse Reactions: Allergy/AdvReac Type Severity Reaction Status Date / Time No Known Allergies Allergy Verified 05/30/15 21:53 Date of admission: 06/17/19 15:12 Primary care physician: PCP NONE Consults: 06/15/19 12:03 Consult to Nephrology [CONS] Stat Consulting Provider: [facility] [place]/[facility] Reason for Consult: [place] toxicity Time Notified: 12:03 Call Completed: Yes 06/15/19 14:43 Consult to Neurology [CONS] Routine Consulting Provider: [facility] Reason for Consult: AMS (hx schizophrenia, seizures), has elevated lithium level of 2 and new episodes of eye fluttering (brief <30 sec) w return to normal after; appreciate assistance with eval for/treatment of AMS, ? seizures vs related to lithium toxicity, thank you Call Completed: Yes 06/15/19 20:18 Consult to Nutrition [CONS] Routine Comment: Consulting Provider: NUTRITION Reason for Dietary Consult: Other 06/16/19 10:35 Consult to Interpret Exam [CONS] Routine Consulting Provider: Jaspreet Rodas I Consult to Interpret Exam: Interpret EEG 06/16/19 12:55 Consult to Psychiatry [CONS] Routine Consulting Provider: [facility] Reason consult: Medication recommendation Agitation Capacity assessment Other reason and/or additional details: Mr Boucher has known hx schizophrenia on [place]. He presented to ED with cp,altered mental status concern for STEMI and lithium toxicity. [place] is being held. Time Notified: 13:01 Call Completed: Yes Discharging clinician: Osvaldo Blackburn - Constitutional Vitals: Temp Pulse Resp BP Pulse Ox 98.9 F 71 17 115/64 98 06/19/19 05:30 06/19/19 05:30 06/19/19 05:30 06/19/19 05:30 06/19/19 05:30 General appearance: Present: cooperative, A&O X 2, no acute distress, answers questions appropriately Exam: see below - Head Head exam: Present: atraumatic, normocephalic - ENT ENT exam: Present: mucous membranes moist - Respiratory Respiratory exam: Present: CTAB. Absent: accessory muscle use, chest wall tenderness, rales, respiratory distress, rhonchi, stridor, wheezes - Cardiovascular Cardiovascular exam: Present: RRR, +S1, +S2. Absent: diastolic murmur, gallop, JVD, systolic murmur - GI/Abdominal GI/Abdominal exam: Present: normal bowel sounds, soft, tenderness (mild, lower quadrants). Absent: distended, firm, guarding, hepatomegaly, rebound - Extremities Exam Extremities exam: Present: radial pulses palpable and symmetrical. Absent: cyanotic, joint swelling, pedal edema - Neurological Exam Neurological exam: Present: alert, CN II-XII intact. Absent: facial droop, speech deficit - Psychiatric Psychiatric exam: Absent: agitated, anxious, flat affect, manic - Expanded Psychiatric Exam Focused psych exam: Present: paranoid (concerned about harm at current [facility], also concerned about harm from staff, hard to discern from patient). Absent: pressured speech, restlessness - Patient Status Disposition: Transfer Other Condition: Fair Functional capacity at discharge: independent ambulation Overall status at discharge: patient is back to baseline - Discharge Instructions Instructions: Chronic Hypertension (DC) Follow Up With: NONE,PCP [Primary Care Provider] - - Diet and Activity Activity: increase activity as tolerated Diet: advance to your usual diet <Richmond Wise - Last Filed: 06/21/19 07:52> Orders not resulted at time of discharge: Pending orders 06/16/19 13:37 Vitamin B1 (Thiamine) Whole Bl Routine Date of Encounter: 06/19/19 - Discharge Diagnosis (1) Toxic encephalopathy Status: Resolved (2) [place] toxicity Status: Resolved Qualifiers: Encounter type: sequela Injury intent: accidental or unintentional Qualified Code(s): T56.891S - Toxic effect of other metals, accidental (unintentional), sequela (3) Anemia Status: Suspected Qualifiers: Anemia type: other cause Other causes of anemia: chronic disease, other Qualified Code(s): D63.8 - Anemia in other chronic diseases classified elsewhere (4) Hypertension Status: Chronic Qualifiers: Hypertension type: essential hypertension Qualified Code(s): I10 - Essential (primary) hypertension (5) Schizophrenia Status: Chronic Qualifiers: Schizophrenia type: unspecified Qualified Code(s): F20.9 - Schizophrenia, unspecified (6) Tobacco abuse Status: Chronic Hospital course: Mr. Boucher is a 48 year old male - Time Spent with Patient Total time spent providing and/or coordinating discharge services: Date of admission: 06/17/19 15:12 Primary care physician: PCP NONE Consults: 06/15/19 12:03 Consult to Nephrology [CONS] Stat Consulting Provider: [facility] [place]/[facility] Reason for Consult: [place] toxicity Time Notified: 12:03 Call Completed: Yes 06/15/19 14:43 Consult to Neurology [CONS] Routine Consulting Provider: [facility] Reason for Consult: AMS (hx schizophrenia, seizures), has elevated lithium level of 2 and new episodes of eye fluttering (brief <30 sec) w return to normal after; appreciate assistance with eval for/treatment of AMS, ? seizures vs related to lithium toxicity, thank you Call Completed: Yes 06/15/19 20:18 Consult to Nutrition [CONS] Routine Comment: Consulting Provider: NUTRITION Reason for Dietary Consult: Other 06/16/19 10:35 Consult to Interpret Exam [CONS] Routine Consulting Provider: Jaspreet Rodas I Consult to Interpret Exam: Interpret EEG 06/16/19 12:55 Consult to Psychiatry [CONS] Routine Consulting Provider: [facility] [place] Reason consult: Medication recommendation Agitation Capacity assessment Other reason and/or additional details: Mr Boucher has known hx schizophrenia on [place]. He presented to ED with cp,altered mental status concern for STEMI and lithium toxicity. [place] is being held. Time Notified: 13:01 Call Completed: Yes - Constitutional Vitals: Temp Pulse Resp BP Pulse Ox 98.7 F 77 17 114/73 98 06/19/19 13:30 06/19/19 13:30 08/29/19 13:30 06/19/19 13:30 06/19/19 13:30 - Attending Attestation I examined this patient and my medical decision-making was reviewed with the Resident Physician on 06/19/19. I agree with the documented findings, disposition and treatment plan as described except to the extent set forth below. Mr Boucher has been admitted for acute encephalopathy and lithium toxicity. He was treated with return to baseline. Today he is afebrile and ready for discharge. Exam Alert Comfortable Mucus membranes dry EOMI Heart not tachy No wheeze Abd soft Plan D/C today. D/c time 33min
[2019-06-19 14:39] VITALS: BP 114/73
== END 2019-06-19 18:07 | disposition other institution (70) | DRG 92 ==
LOC: EMEROOARM 09:32 → 3BNU 09:32 → SUATTDRO 15:37 → 2NENU 15:45 → SUATTDRO 06-17 15:12
PROVIDERS: ADMIT Internal Medicine Nephrology; ATTEND Internal Medicine

== ENCOUNTER 2020-04-28 07:59 | Inpatient (IN) ==
[2020-04-28] MEDS ORDERED: 0.9 % Sodium Chloride 1,000 ML IVC ONE (08:12)
[2020-04-28 08:28] LABS: Basophils # 0.1 K/mcL (0.0-0.2); Basophils % 0.6 %; Eosinophils # 0.2 K/mcL (0.0-0.6); Eosinophils % 1.3 %; Hemoglobin 12.3 g/dL (12.9-16.9); Immature Granulocytes % 2.5 % (0-4); Lymphocytes # 0.7 K/mcL (0.6-4.6); Lymphocytes % 4.4 %; Mean Corpuscular HGB Conc 30.8 g/dL (31.6-35.5); Mean Corpuscular Hemoglobin 29.1 pg (28.0-33.3); Mean Corpuscular Volume 94.6 fL (83.0-100.0); Monocytes # 1.2 K/mcL (0.0-1.3); Monocytes % 7.7 %; Neutrophils # 12.6 K/mcL (1.6-8.9); Platelet Count 387 K/mcL (140-400); Red Blood Count 4.23 M/mcL (4.19-5.50); Red Cell Distribution Width 14.8 % (11.5-14.5); Segmented Neutrophils % 83.5 %
[2020-04-28 08:50] LABS: Alanine Aminotransferase 29 Units/L (7-52); Albumin 4.9 g/dL (3.5-5.7); Albumin/Globulin Ratio 1.6 (1.1-2.2); Alkaline Phosphatase 177 Units/L (34-104); Aspartate Amino Transferase 21 Units/L (13-39); BUN/Creatinine Ratio 11 (6-26); Bilirubin,Direct 0.1 mg/dL (0.0-0.2); Bilirubin,Indirect 0.2 mg/dL (0.0-1.0); Bilirubin,Total 0.3 mg/dL (0.3-1.0); Blood Urea Nitrogen 43 mg/dL (6-20); Calcium 10.7 mg/dL (8.6-10.3); Carbon Dioxide 25 mEq/L (23-29); Chloride 103 mEq/L (98-107); Ethanol < 10 mg/dL (Less than 10); Globulin 3.1 g/dL (2.4-3.5); Glucose 95 mg/dL (70-105); Osmolality,Calculated 293 (280-300); Potassium 4.4 mEq/L (3.5-5.1); Sodium 136 mEq/L (136-145); Troponin I < 0.03 ng/mL (< 0.04); eGFR For African Americans 21 (> 60); eGFR For Non-African Americans 17 (> 60)
[2020-04-28 09:16] LABS: Bilirubin,Urine Negative (Negative); Blood,Urine Moderate (Negative); Clarity,Urine Turbid (Clear); Color,Urine Light-Yellow (Yellow); Glucose,Urine (UA) Normal (Normal); Hyaline Casts,Urine Few per lpf (None Seen); Ketones,Urine Negative (Negative); Leukocyte Esterase,Urine Small (Negative); Mucus,Urine Few per lpf (None-Few); Nitrite,Urine Negative (Negative); PH,Urine 5.5 pH Units (5.0-8.0); Protein,Urine 30 mg/dL (Neg-Trace); RBC,Urine 30-50 per hpf (0-3); Specific Gravity,Urine 1.014 (1.010-1.025); Squamous Epithelial Cell,Urine Few per hpf (None-Few); Urobilinogen,Urine Normal (Normal); WBC,Urine 15-30 per hpf (0-3)
[2020-04-28] MEDS ORDERED: Naloxone 0.4 MG/ML INJ IVP PRN (09:40)
[2020-04-28 11:46] LABS: Amphetamine Screen,Urine Negative ng/mL (Cutoff=1000); Barbiturate Screen,Urine Negative ng/mL (Cutoff=200); Benzodiazepines Screen,Urine Negative ng/mL (Cutoff=200); Cannabinoid Screen,Urine Negative ng/mL (Cutoff = 50); Cocaine Screen,Urine Negative ng/mL (Cutoff= 300); Opiate Screen,Urine Negative ng/mL (Cutoff=300); Phencyclidine Screen,Urine Negative ng/mL (Cutoff=25)
[2020-04-28] MEDS ORDERED: Mag Hydrox/Al Hydrox/Simeth 30 ML UDC PO PRN (11:48)
[2020-04-28] MEDS ORDERED: MOM Conc 10 ML UD.LIQ PO PRN (11:48)
[2020-04-28] MEDS ORDERED: CLINDAMYCIN PHOSPHATE APPL TP PRN (11:48)
[2020-04-28 14:54] LABS: Calcium 9.9 mg/dL (8.6-10.3); Potassium 4.2 mEq/L (3.5-5.1)
[2020-04-28] MEDS: 0.9 % Sodium Chloride 1,000 ML IVC SCH (17:07)
[2020-04-28 18:49] LABS: BUN/Creatinine Ratio 14 (6-26); Blood Urea Nitrogen 39 mg/dL (6-20); Carbon Dioxide 21 mEq/L (23-29); Chloride 109 mEq/L (98-107); Glucose 81 mg/dL (70-105); Osmolality,Calculated 292 (280-300); Potassium 4.2 mEq/L (3.5-5.1); Sodium 137 mEq/L (136-145); eGFR For African Americans 30 (> 60); eGFR For Non-African Americans 25 (> 60)
[2020-04-28 19:32] LABS: Acetaminophen < 10 mcg/mL (10-20); Creatine Kinase 453 Units/L (30-223); Salicylate < 2.5 mg/dL (15.0-30.0); Uric Acid 12.5 mg/dL (2.3-7.6)
[2020-04-28] MEDS: Famotidine 20 MG TABLET PO SCH (19:56)
[2020-04-28] MEDS: OLANZapine 10 MG TAB.RAPDIS PO SCH (19:57)
[2020-04-28] MEDS: OXcarbazepine 150 MG TABLET PO SCH (19:57)
[2020-04-28] MEDS: Artificial Tears SOLN 15 ML BOTTLE BOTH EYES SCH (19:57)
[2020-04-28] MEDS: polyethylene glycoL 3350 17 GM POWD.PACK PO SCH (19:58)
[2020-04-28] MEDS ORDERED: Carbamide Peroxide 150 DROP/15 ML BOTTLE BOTH EARS PRN (21:00)
[2020-04-29 00:26] LABS: Sodium, Urine 62.8 mEq/L
[2020-04-29 00:39] LABS: Basophils # 0.1 K/mcL (0.0-0.2); Basophils % 0.4 %; Eosinophils # 0.4 K/mcL (0.0-0.6); Eosinophils % 3.4 %; Hematocrit 33.4 % (37.5-50.1); Immature Granulocytes % 1.8 % (0-4); Lymphocytes # 0.9 K/mcL (0.6-4.6); Lymphocytes % 7.5 %; Mean Corpuscular HGB Conc 31.7 g/dL (31.6-35.5); Mean Corpuscular Hemoglobin 30.4 pg (28.0-33.3); Mean Corpuscular Volume 95.7 fL (83.0-100.0); Mean Platelet Volume 8.2 fL (9.4-12.4); Monocytes # 1.1 K/mcL (0.0-1.3); Monocytes % 8.9 %; Neutrophils # 9.3 K/mcL (1.6-8.9); Platelet Count 320 K/mcL (140-400); Red Blood Count 3.49 M/mcL (4.19-5.50); Red Cell Distribution Width 14.9 % (11.5-14.5); White Blood Count 11.9 K/mcL (4.3-11.1)
[2020-04-29 00:41] LABS: Hemoglobin 10.6 g/dL (12.9-16.9)
[2020-04-29 00:58] LABS: Calcium 9.5 mg/dL (8.6-10.3); Potassium 4.1 mEq/L (3.5-5.1)
[2020-04-29] MEDS: 0.9 % Sodium Chloride 1,000 ML IVC SCH ×2 (06:17→18:12)
[2020-04-29] MEDS: Famotidine 20 MG TABLET PO SCH ×2 (07:57→21:13)
[2020-04-29] MEDS: OXcarbazepine 150 MG TABLET PO SCH ×2 (07:57→21:12)
[2020-04-29] MEDS: OLANZapine 10 MG TAB.RAPDIS PO SCH ×2 (07:58→21:13)
[2020-04-29] MEDS: BuPROPion XL (24 HR) 150 MG TABLET PO SCH (07:58)
[2020-04-29] MEDS: polyethylene glycoL 3350 17 GM POWD.PACK PO SCH ×2 (07:58→21:16)
[2020-04-29] MEDS: Folic Acid 1 MG TABLET PO SCH (07:58)
[2020-04-29] MEDS: Artificial Tears SOLN 15 ML BOTTLE BOTH EYES SCH ×2 (07:59→21:17)
[2020-04-29] MEDS: Cholecalciferol (D-3) 1,000 UNIT (25MCG) TABLET PO SCH (08:01)
[2020-04-29] MEDS ORDERED: *HR* LORazepam 2 MG/ML VIAL IVP PRN (19:22)
[2020-04-30] MEDS: 0.9 % Sodium Chloride 1,000 ML IVC SCH (08:21)
[2020-04-30] MEDS: BuPROPion XL (24 HR) 150 MG TABLET PO SCH (08:21)
[2020-04-30] MEDS: Famotidine 20 MG TABLET PO SCH ×2 (08:21→20:36)
[2020-04-30] MEDS: Folic Acid 1 MG TABLET PO SCH (08:22)
[2020-04-30] MEDS: Cholecalciferol (D-3) 1,000 UNIT (25MCG) TABLET PO SCH (08:22)
[2020-04-30] MEDS: OXcarbazepine 150 MG TABLET PO SCH ×2 (08:22→20:37)
[2020-04-30] MEDS: polyethylene glycoL 3350 17 GM POWD.PACK PO SCH ×2 (08:22→20:38)
[2020-04-30] MEDS: OLANZapine 10 MG TAB.RAPDIS PO SCH ×2 (08:22→20:36)
[2020-04-30] MEDS: Artificial Tears SOLN 15 ML BOTTLE BOTH EYES SCH ×2 (08:23→20:36)
[2020-04-30 08:36] LABS: Potassium 4.1 mEq/L (3.5-5.1)
[2020-04-30 08:45] LABS: Basophils # 0.1 K/mcL (0.0-0.2); Basophils % 0.5 %; Eosinophils # 0.4 K/mcL (0.0-0.6); Eosinophils % 3.6 %; Hematocrit 34.9 % (37.5-50.1); Hemoglobin 10.7 g/dL (12.9-16.9); Immature Granulocytes % 1.2 % (0-4); Lymphocytes # 0.8 K/mcL (0.6-4.6); Lymphocytes % 7.7 %; Mean Corpuscular HGB Conc 30.7 g/dL (31.6-35.5); Mean Corpuscular Hemoglobin 29.2 pg (28.0-33.3); Mean Corpuscular Volume 95.1 fL (83.0-100.0); Mean Platelet Volume 8.4 fL (9.4-12.4); Monocytes % 9.4 %; Neutrophils # 7.9 K/mcL (1.6-8.9); Platelet Count 341 K/mcL (140-400); Red Blood Count 3.67 M/mcL (4.19-5.50); Red Cell Distribution Width 14.6 % (11.5-14.5); Segmented Neutrophils % 77.6 %; White Blood Count 10.2 K/mcL (4.3-11.1)
[2020-04-30] MEDS ORDERED: Haloperidol Decanoate 50 MG/ML VIAL IM SCH (09:00)
[2020-05-01 04:32] VITALS: BP 107/57
[2020-05-01 05:33] LABS: Calcium 10.1 mg/dL (8.6-10.3)
[2020-05-01] MEDS ORDERED: *HR* Heparin 5,000 UNIT/ML VIAL SQ SCH (06:00)
[2020-05-01] MEDS ORDERED: Folic Acid 1 MG TABLET PO SCH (09:00)
[2020-05-01] MEDS ORDERED: Cholecalciferol (D-3) 1,000 UNIT (25MCG) TABLET PO SCH (09:00)
[2020-05-01] MEDS ORDERED: BuPROPion XL (24 HR) 150 MG TABLET PO SCH (09:00)
[2020-05-01] MEDS ORDERED: OLANZapine 10 MG TAB.RAPDIS PO SCH (09:00)
[2020-05-01] MEDS: Famotidine 20 MG TABLET PO SCH (09:54)
[2020-05-01] MEDS: polyethylene glycoL 3350 17 GM POWD.PACK PO SCH (09:55)
[2020-05-01] MEDS: OXcarbazepine 150 MG TABLET PO SCH (09:55)
[2020-05-01] MEDS: Artificial Tears SOLN 15 ML BOTTLE BOTH EYES SCH (09:56)
[2020-05-01] MEDS ORDERED: 0.9 % Sodium Chloride 500 ML ONE (12:21)
== END 2020-05-01 12:20 | DRG 917 ==
LOC: 3ANU 07:59 → EMEROOARM 07:59 → SUATTDRO 10:14 → 3ANU 10:58
PROVIDERS: ADMIT Internal Medicine; ATTEND Internal Medicine

== ENCOUNTER 2020-05-15 20:56 | Inpatient (IN) ==
[2020-05-15] MEDS ORDERED: Aspirin 81 MG TAB.CHEW PO STA (21:18)
[2020-05-15] MEDS ORDERED: Nitroglycerin 0.4 MG TAB.SUBL SL PRN (21:24)
[2020-05-15 21:37] LABS: Basophils % 0.4 %; Eosinophils # 0.2 K/mcL (0.0-0.6); Eosinophils % 2.4 %; Hematocrit 34.2 % (37.5-50.1); Hemoglobin 10.8 g/dL (12.9-16.9); Immature Granulocytes % 0.7 % (0-4); Lymphocytes # 0.9 K/mcL (0.6-4.6); Lymphocytes % 8.6 %; Mean Corpuscular HGB Conc 31.6 g/dL (31.6-35.5); Mean Corpuscular Hemoglobin 30.2 pg (28.0-33.3); Mean Corpuscular Volume 95.5 fL (83.0-100.0); Mean Platelet Volume 8.8 fL (9.4-12.4); Monocytes # 1.1 K/mcL (0.0-1.3); Monocytes % 10.6 %; Neutrophils # 7.7 K/mcL (1.6-8.9); Platelet Count 292 K/mcL (140-400); Red Blood Count 3.58 M/mcL (4.19-5.50); Red Cell Distribution Width 14.6 % (11.5-14.5); Segmented Neutrophils % 77.3 %; White Blood Count 9.9 K/mcL (4.3-11.1)
[2020-05-15 21:41] LABS: Bilirubin,Urine Negative (Negative); Blood,Urine Trace (Negative); Clarity,Urine Clear (Clear); Color,Urine Colorless (Yellow); Glucose,Urine (UA) Normal (Normal); Ketones,Urine Negative (Negative); Leukocyte Esterase,Urine Negative (Negative); Nitrite,Urine Negative (Negative); PH,Urine 6.5 pH Units (5.0-8.0); Protein,Urine Negative (Neg-Trace); RBC,Urine 0-3 per hpf (0-3); Specific Gravity,Urine 1.005 (1.010-1.025); Urobilinogen,Urine Normal (Normal); WBC,Urine 0-3 per hpf (0-3)
[2020-05-15 21:44] LABS: Prothrombin Time 11.1 Seconds (9.4-12.1)
[2020-05-15 21:47] LABS: Activated Partial Thrombo Time 35.3 Seconds (26.0-36.0)
[2020-05-15] MEDS ORDERED: Isovue-370 500 ML BOTTLE IVP ONE (21:53)
[2020-05-15 23:32] LABS: BUN/Creatinine Ratio 13 (6-26); Blood Urea Nitrogen 13 mg/dL (6-20); Calcium 9.2 mg/dL (8.6-10.3); Carbon Dioxide 22 mEq/L (23-29); Chloride 107 mEq/L (98-107); Glucose 88 mg/dL (70-105); Osmolality,Calculated 288 (280-300); Potassium 4.4 mEq/L (3.5-5.1); Sodium 139 mEq/L (136-145); Troponin I < 0.03 ng/mL (< 0.04); eGFR For African Americans > 60 (> 60); eGFR For Non-African Americans > 60 (> 60)
[2020-05-16] MEDS ORDERED: *HR* Heparin 5,000 UNIT/ML VIAL IVP ONE (00:24)
[2020-05-16] MEDS ORDERED: *HR* Heparin 5,000 UNIT/ML VIAL IVP PRN ×2 (00:24)
[2020-05-16] MEDS: Heparin 25,000 UNIT/250 ML D5W 25,000 UNIT/250 ML IV.SOLN IVC SCH ×2 (01:35→17:52)
[2020-05-16] MEDS ORDERED: Ondansetron 4 MG/2 ML VIAL IVP PRN (02:02)
[2020-05-16] MEDS ORDERED: Naloxone 0.4 MG/ML INJ IVP PRN (02:02)
[2020-05-16] MEDS ORDERED: Acetaminophen 325 MG TABLET PO PRN (02:03)
[2020-05-16] MEDS: Artificial Tears SOLN 15 ML BOTTLE BOTH EYES SCH (06:26)
[2020-05-16] MEDS: BuPROPion XL (24 HR) 150 MG TABLET PO SCH (06:26)
[2020-05-16] MEDS: Folic Acid 1 MG TABLET PO SCH (06:27)
[2020-05-16] MEDS: Loratadine 10 MG TABLET PO SCH (06:27)
[2020-05-16] MEDS: Famotidine 20 MG TABLET PO SCH ×2 (06:27→19:59)
[2020-05-16] MEDS: Cholecalciferol (D-3) 1,000 UNIT (25MCG) TABLET PO SCH (06:27)
[2020-05-16 07:42] LABS: Basophils % 0.5 %; Eosinophils # 0.3 K/mcL (0.0-0.6); Eosinophils % 3.5 %; Hematocrit 35.7 % (37.5-50.1); Hemoglobin 11.2 g/dL (12.9-16.9); Lymphocytes # 0.8 K/mcL (0.6-4.6); Lymphocytes % 9.6 %; Mean Corpuscular HGB Conc 31.4 g/dL (31.6-35.5); Mean Corpuscular Hemoglobin 29.7 pg (28.0-33.3); Mean Corpuscular Volume 94.7 fL (83.0-100.0); Mean Platelet Volume 8.3 fL (9.4-12.4); Monocytes # 0.7 K/mcL (0.0-1.3); Monocytes % 8.5 %; Neutrophils # 6.4 K/mcL (1.6-8.9); Platelet Count 276 K/mcL (140-400); Red Blood Count 3.77 M/mcL (4.19-5.50); Red Cell Distribution Width 14.6 % (11.5-14.5); Segmented Neutrophils % 76.9 %; White Blood Count 8.3 K/mcL (4.3-11.1)
[2020-05-16 08:02] LABS: BUN/Creatinine Ratio 12 (6-26); Blood Urea Nitrogen 12 mg/dL (6-20); Calcium 9.2 mg/dL (8.6-10.3); Carbon Dioxide 27 mEq/L (23-29); Chloride 110 mEq/L (98-107); Glucose 99 mg/dL (70-105); Osmolality,Calculated 296 (280-300); Potassium 3.8 mEq/L (3.5-5.1); Sodium 143 mEq/L (136-145); eGFR For African Americans > 60 (> 60); eGFR For Non-African Americans > 60 (> 60)
[2020-05-16] MEDS: amLODIPine 5 MG TABLET PO SCH (08:14)
[2020-05-16] MEDS: OXcarbazepine 150 MG TABLET PO SCH ×2 (08:15→19:59)
[2020-05-16] MEDS: Lithium Carbonate 300 MG CAPSULE PO SCH ×2 (08:16→19:58)
[2020-05-16] MEDS ORDERED: Carbamide Peroxide 150 DROP/15 ML BOTTLE BOTH EARS SCH (21:00)
[2020-05-16] MEDS ORDERED: Morphine Sulfate 2 MG/ML SYRINGE IVP ONE (21:03)
[2020-05-17] MEDS ORDERED: *HR* LORazepam 2 MG/ML VIAL IM PRN (00:24)
[2020-05-17] MEDS: OLANZapine 5 MG TAB.RAPDIS PO SCH ×2 (00:55→09:53)
[2020-05-17 01:42] LABS: Hemoglobin 10.9 g/dL (12.9-16.9); Mean Corpuscular HGB Conc 31.1 g/dL (31.6-35.5); Mean Corpuscular Hemoglobin 29.9 pg (28.0-33.3); Mean Corpuscular Volume 95.9 fL (83.0-100.0); Mean Platelet Volume 8.6 fL (9.4-12.4); Platelet Count 297 K/mcL (140-400); Red Blood Count 3.65 M/mcL (4.19-5.50); Red Cell Distribution Width 14.7 % (11.5-14.5); White Blood Count 8.6 K/mcL (4.3-11.1)
[2020-05-17 02:00] LABS: BUN/Creatinine Ratio 10 (6-26); Blood Urea Nitrogen 15 mg/dL (6-20); Calcium 9.2 mg/dL (8.6-10.3); Carbon Dioxide 24 mEq/L (23-29); Chloride 109 mEq/L (98-107); Glucose 104 mg/dL (70-105); Osmolality,Calculated 297 (280-300); Potassium 3.5 mEq/L (3.5-5.1); Sodium 143 mEq/L (136-145); eGFR For African Americans > 60 (> 60); eGFR For Non-African Americans 52 (> 60)
[2020-05-17] MEDS: Artificial Tears SOLN 15 ML BOTTLE BOTH EYES SCH (06:24)
[2020-05-17] MEDS: BuPROPion XL (24 HR) 150 MG TABLET PO SCH (06:25)
[2020-05-17] MEDS: Cholecalciferol (D-3) 1,000 UNIT (25MCG) TABLET PO SCH (06:25)
[2020-05-17] MEDS: Folic Acid 1 MG TABLET PO SCH (06:26)
[2020-05-17] MEDS: Loratadine 10 MG TABLET PO SCH (06:26)
[2020-05-17] MEDS: Famotidine 20 MG TABLET PO SCH (06:26)
[2020-05-17] MEDS: OXcarbazepine 150 MG TABLET PO SCH (09:53)
[2020-05-17] MEDS: amLODIPine 5 MG TABLET PO SCH (09:53)
[2020-05-17] MEDS: Lithium Carbonate 300 MG CAPSULE PO SCH (09:53)
[2020-05-17 11:02] VITALS: BP 122/75
== END 2020-05-17 14:53 | disposition home or self-care (01) | DRG 176 ==
LOC: EMEROOARM 20:56 → 2ANU 20:56
PROVIDERS: ADMIT Family Medicine; ATTEND Family Medicine

== ENCOUNTER 2020-08-30 15:49 | Observation (INO) ==
[2020-08-30 16:30] LABS: VBG HCO3 22 mEq/L (21-27); VBG PCO2 36 mmHg (41-51); VBG PO2 111 mmHg (25-50)
[2020-08-30 16:32] LABS: Basophils # 0.1 K/mcL (0.0-0.2); Basophils % 0.5 %; Eosinophils # 0.4 K/mcL (0.0-0.6); Eosinophils % 2.8 %; Hematocrit 35.8 % (37.5-50.1); Hemoglobin 11.2 g/dL (12.9-16.9); Immature Granulocytes % 1.7 % (0-4); Lymphocytes # 1.1 K/mcL (0.6-4.6); Lymphocytes % 7.8 %; Mean Corpuscular HGB Conc 31.3 g/dL (31.6-35.5); Mean Corpuscular Hemoglobin 28.7 pg (28.0-33.3); Mean Corpuscular Volume 91.8 fL (83.0-100.0); Mean Platelet Volume 8.3 fL (9.4-12.4); Monocytes # 0.9 K/mcL (0.0-1.3); Monocytes % 6.6 %; Neutrophils # 11.1 K/mcL (1.6-8.9); Platelet Count 382 K/mcL (140-400); Red Cell Distribution Width 14.9 % (11.5-14.5); Segmented Neutrophils % 80.6 %; White Blood Count 13.8 K/mcL (4.3-11.1)
[2020-08-30 16:51] LABS: Bilirubin,Urine Negative (Negative); Blood,Urine Trace (Negative); Clarity,Urine Clear (Clear); Color,Urine Colorless (Yellow); Glucose,Urine (UA) Normal (Normal); Ketones,Urine Negative (Negative); Leukocyte Esterase,Urine Small (Negative); Nitrite,Urine Negative (Negative); Protein,Urine Negative (Neg-Trace); Squamous Epithelial Cell,Urine Few per hpf (None-Few); Urobilinogen,Urine Normal (Normal)
[2020-08-30 16:52] LABS: Calcium 10.4 mg/dL (8.6-10.3); Potassium 4.4 mEq/L (3.5-5.1)
[2020-08-30 16:53] LABS: Lithium 1.5 mEq/L (0.6-1.2)
[2020-08-30 17:32] LABS: Adenovirus Not Detected (Not Detect); Bordetella Pertussis Not Detected (Not Detect); Chlamydophila pneumoniae Not Detected (Not Detect); Coronavirus 229E Not Detected (Not Detect); Coronavirus HKU1 Not Detected (Not Detect); Coronavirus NL63 Not Detected (Not Detect); Coronavirus OC43 Not Detected (Not Detect); Human Metapneumovirus Not Detected (Not Detect); Human Rhinovirus/Enterovirus Not Detected (Not Detect); Influenza A Subtype 2009 H1 Not Detected (Not Detect); Influenza B Not Detected (Not Detect); Mycoplasma pneumoniae Not Detected (Not Detect); Parainfluenza Virus 1 Not Detected (Not Detect); Parainfluenza Virus 2 Not Detected (Not Detect); Parainfluenza Virus 3 Not Detected (Not Detect); Parainfluenza Virus 4 Not Detected (Not Detect); Respiratory Syncytial Virus Not Detected (Not Detect); SARS-CoV-2 Not Detected (Not Detect)
[2020-08-30] MEDS ORDERED: cefTRIAXone 1,000 MG in Water for inj. (sterile) 10 ML IVP ONE (18:05)
[2020-08-30] MEDS ORDERED: Azithromycin 500 MG in 0.9 % Sodium Chloride 250 ML IVPB ONE (18:05)
[2020-08-30 19:03] LABS: Albumin 4.6 g/dL (3.5-5.7); Albumin/Globulin Ratio 1.6 (1.1-2.2); Bilirubin,Indirect 0.2 mg/dL (0.0-1.0); Bilirubin,Total 0.2 mg/dL (0.3-1.0); Globulin 2.9 g/dL (2.4-3.5); Total Protein 7.5 g/dL (6.4-8.9)
[2020-08-30] MEDS ORDERED: Naloxone 0.4 MG/ML INJ IVP PRN (19:37)
[2020-08-30] MEDS ORDERED: Acetaminophen 325 MG TABLET PO PRN (19:37)
[2020-08-30] MEDS ORDERED: D5% in Water 1,000 ML IVC PRN (20:58)
[2020-08-30] MEDS ORDERED: Dextrose Gel 15 GM/37.5 ML TUBE PO PRN ×2 (20:58)
[2020-08-30] MEDS ORDERED: *HR* Dextrose 50 % in Water (Vial) 50 ML VIAL IVP PRN (20:58)
[2020-08-30 21:23] LABS: Procalcitonin 0.04 ng/mL (0.00-0.15)
[2020-08-31 05:56] LABS: Hematocrit 34.7 % (37.5-50.1); Mean Corpuscular HGB Conc 31.7 g/dL (31.6-35.5); Mean Corpuscular Hemoglobin 29.6 pg (28.0-33.3); Mean Corpuscular Volume 93.5 fL (83.0-100.0); Mean Platelet Volume 8.5 fL (9.4-12.4); Platelet Count 369 K/mcL (140-400); Red Blood Count 3.71 M/mcL (4.19-5.50)
[2020-08-31 06:18] LABS: Alanine Aminotransferase 24 Units/L (7-52); Albumin 4.4 g/dL (3.5-5.7); Albumin/Globulin Ratio 1.6 (1.1-2.2); Alkaline Phosphatase 129 Units/L (34-104); Aspartate Amino Transferase 14 Units/L (13-39); BUN/Creatinine Ratio 18 (6-26); Bilirubin,Total 0.3 mg/dL (0.3-1.0); Blood Urea Nitrogen 26 mg/dL (6-20); Calcium 10.1 mg/dL (8.6-10.3); Carbon Dioxide 22 mEq/L (23-29); Chloride 108 mEq/L (98-107); Globulin 2.8 g/dL (2.4-3.5); Glucose 124 mg/dL (70-105); Osmolality,Calculated 290 (280-300); Potassium 3.9 mEq/L (3.5-5.1); Sodium 137 mEq/L (136-145); Total Protein 7.2 g/dL (6.4-8.9); eGFR For African Americans > 60 (> 60); eGFR For Non-African Americans 51 (> 60)
[2020-08-31] MEDS: Insulin LISPRO 300 UNITS/3 ML VIAL SQ SCH ×3 (08:00→17:37)
[2020-08-31] MEDS: Folic Acid 1 MG TABLET PO SCH (09:30)
[2020-08-31] MEDS: OLANZapine 10 MG TAB.RAPDIS PO SCH ×2 (09:30→20:31)
[2020-08-31] MEDS: BuPROPion XL (24 HR) 150 MG TABLET PO SCH (09:30)
[2020-08-31] MEDS: Lactobacillus 1 EACH CAP.SPRINK PO SCH (09:30)
[2020-08-31] MEDS: OXcarbazepine 150 MG TABLET PO SCH ×2 (09:31→20:29)
[2020-08-31] MEDS: levoFLOXacin 750 MG/150 ML 750 MG/150 ML BAG IVPB SCH (09:31)
[2020-08-31] MEDS ORDERED: MOM Conc 10 ML UD.LIQ PO PRN (14:43)
[2020-08-31] MEDS ORDERED: polyethylene glycoL 3350 17 GM POWD.PACK PO SCH (20:00)
[2020-08-31] MEDS ORDERED: Lithium Carbonate 300 MG CAPSULE PO SCH (20:00)
[2020-08-31] MEDS ORDERED: Lithium Oral Soln 300 MG/5 ML (8 mEq/5mL) UDC PO SCH (20:00)
[2020-08-31] MEDS: Apixaban 5 MG TABLET PO SCH (20:31)
[2020-09-01] MEDS: Lactobacillus 1 EACH CAP.SPRINK PO SCH (06:35)
[2020-09-01] MEDS: Apixaban 5 MG TABLET PO SCH (06:35)
[2020-09-01] MEDS: BuPROPion XL (24 HR) 150 MG TABLET PO SCH (06:35)
[2020-09-01] MEDS: OXcarbazepine 150 MG TABLET PO SCH (06:35)
[2020-09-01] MEDS: Folic Acid 1 MG TABLET PO SCH (06:35)
[2020-09-01] MEDS: OLANZapine 10 MG TAB.RAPDIS PO SCH (06:36)
[2020-09-01] MEDS ORDERED: amLODIPine 5 MG TABLET PO SCH (07:00)
[2020-09-01] MEDS: Insulin LISPRO 300 UNITS/3 ML VIAL SQ SCH ×3 (07:18→15:24)
[2020-09-01 07:56] LABS: Basophils % 0.3 %; Eosinophils # 0.4 K/mcL (0.0-0.6); Eosinophils % 2.7 %; Hematocrit 37.3 % (37.5-50.1); Hemoglobin 11.2 g/dL (12.9-16.9); Immature Granulocytes % 1.3 % (0-4); Lymphocytes # 1.1 K/mcL (0.6-4.6); Lymphocytes % 8.3 %; Mean Corpuscular Hemoglobin 28.4 pg (28.0-33.3); Mean Corpuscular Volume 94.4 fL (83.0-100.0); Mean Platelet Volume 8.2 fL (9.4-12.4); Monocytes # 1.1 K/mcL (0.0-1.3); Monocytes % 8.4 %; Neutrophils # 10.6 K/mcL (1.6-8.9); Platelet Count 369 K/mcL (140-400); Red Blood Count 3.95 M/mcL (4.19-5.50); Red Cell Distribution Width 14.7 % (11.5-14.5); White Blood Count 13.4 K/mcL (4.3-11.1)
[2020-09-01 08:18] LABS: Calcium 10.5 mg/dL (8.6-10.3); Magnesium 2.1 mg/dL (1.6-2.6); Phosphorous 4.1 mg/dL (2.7-4.5); Potassium 4.1 mEq/L (3.5-5.1)
[2020-09-01] MEDS: levoFLOXacin 750 MG/150 ML 750 MG/150 ML BAG IVPB SCH (09:57)
[2020-09-01 15:19] VITALS: BP 115/75
== END 2020-09-01 16:00 ==
LOC: EMEROOARM 15:49 → 2ANU 15:49 → SUATTDRO 18:59 → 2ANU 20:01
PROVIDERS: ADMIT Family Medicine; ATTEND Internal Medicine

== ENCOUNTER 2020-12-21 09:46 | Observation (INO) ==
[2020-12-21] MEDS ORDERED: 0.9 % Sodium Chloride 1,000 ML IVC ONE ×2 (10:23→12:02)
[2020-12-21] MEDS ORDERED: Isovue-370 500 ML BOTTLE IVP ONE (10:32)
[2020-12-21 10:44] LABS: Basophils # 0.1 K/mcL (0.0-0.2); Basophils % 0.5 %; Eosinophils # 0.3 K/mcL (0.0-0.6); Hematocrit 35.6 % (37.5-50.1); Immature Granulocytes % 1.4 % (0-4); Lymphocytes # 0.8 K/mcL (0.6-4.6); Mean Corpuscular HGB Conc 30.9 g/dL (31.6-35.5); Mean Corpuscular Hemoglobin 29.1 pg (28.0-33.3); Mean Corpuscular Volume 94.2 fL (83.0-100.0); Mean Platelet Volume 8.3 fL (9.4-12.4); Monocytes # 0.7 K/mcL (0.0-1.3); Monocytes % 7.5 %; Neutrophils # 7.6 K/mcL (1.6-8.9); Platelet Count 349 K/mcL (140-400); Red Blood Count 3.78 M/mcL (4.19-5.50); Red Cell Distribution Width 14.7 % (11.5-14.5); Segmented Neutrophils % 79.6 %; White Blood Count 9.5 K/mcL (4.3-11.1)
[2020-12-21 11:27] LABS: Alanine Aminotransferase 22 Units/L (7-52); Albumin 4.5 g/dL (3.5-5.7); Albumin/Globulin Ratio 1.6 (1.1-2.2); Alkaline Phosphatase 123 Units/L (34-104); Aspartate Amino Transferase 15 Units/L (13-39); BUN/Creatinine Ratio 20 (6-26); Bilirubin,Indirect 0.2 mg/dL (0.0-1.0); Bilirubin,Total 0.2 mg/dL (0.3-1.0); Blood Urea Nitrogen 38 mg/dL (6-20); Calcium 10.3 mg/dL (8.6-10.3); Carbon Dioxide 21 mEq/L (23-29); Chloride 107 mEq/L (98-107); Globulin 2.9 g/dL (2.4-3.5); Glucose 94 mg/dL (70-105); Lipase 25 Units/L (11-82); Osmolality,Calculated 291 (280-300); Potassium 4.6 mEq/L (3.5-5.1); Sodium 136 mEq/L (136-145); Total Protein 7.4 g/dL (6.4-8.9); Troponin I < 0.03 ng/mL (< 0.04); eGFR For African Americans 46 (> 60); eGFR For Non-African Americans 38 (> 60)
[2020-12-21 11:28] LABS: Bilirubin,Urine Negative (Negative); Blood,Urine Trace (Negative); Clarity,Urine Clear (Clear); Color,Urine Colorless (Yellow); Glucose,Urine (UA) Normal (Normal); Hyaline Casts,Urine Few per lpf (None Seen); Ketones,Urine Negative (Negative); Leukocyte Esterase,Urine Negative (Negative); Mucus,Urine Few per lpf (None-Few); Nitrite,Urine Negative (Negative); Protein,Urine Negative (Neg-Trace); RBC,Urine 0-3 per hpf (0-3); Specific Gravity,Urine 1.012 (1.010-1.025); Urobilinogen,Urine Normal (Normal); WBC,Urine 0-3 per hpf (0-3)
[2020-12-21] MEDS ORDERED: Haloperidol Lactate 5 MG/ML VIAL IVP PRN (13:46)
[2020-12-21] MEDS ORDERED: Naloxone 0.4 MG/ML INJ IVP PRN (13:48)
[2020-12-21] MEDS: 0.9 % Sodium Chloride 1,000 ML IVC SCH (16:55)
[2020-12-21] MEDS: OLANZapine 10 MG TAB.RAPDIS PO SCH (19:32)
[2020-12-21] MEDS: Apixaban 5 MG TABLET PO SCH (19:33)
[2020-12-21] MEDS: OXcarbazepine 150 MG TABLET PO SCH (19:33)
[2020-12-22] MEDS: 0.9 % Sodium Chloride 1,000 ML IVC SCH ×2 (01:35→08:31)
[2020-12-22 04:14] LABS: Basophils # 0.1 K/mcL (0.0-0.2); Basophils % 0.5 %; Eosinophils # 0.4 K/mcL (0.0-0.6); Eosinophils % 3.9 %; Hematocrit 33.6 % (37.5-50.1); Hemoglobin 10.3 g/dL (12.9-16.9); Immature Granulocytes % 1.2 % (0-4); Lymphocytes % 10.1 %; Mean Corpuscular HGB Conc 30.7 g/dL (31.6-35.5); Mean Corpuscular Hemoglobin 28.9 pg (28.0-33.3); Mean Corpuscular Volume 94.4 fL (83.0-100.0); Mean Platelet Volume 8.4 fL (9.4-12.4); Monocytes % 9.7 %; Neutrophils # 7.3 K/mcL (1.6-8.9); Platelet Count 364 K/mcL (140-400); Red Blood Count 3.56 M/mcL (4.19-5.50); Red Cell Distribution Width 14.8 % (11.5-14.5); Segmented Neutrophils % 74.6 %; White Blood Count 9.8 K/mcL (4.3-11.1)
[2020-12-22 04:27] LABS: Albumin 4.1 g/dL (3.5-5.7); Albumin/Globulin Ratio 1.6 (1.1-2.2); Bilirubin,Total 0.2 mg/dL (0.3-1.0); Calcium 9.8 mg/dL (8.6-10.3); Globulin 2.5 g/dL (2.4-3.5); Potassium 4.1 mEq/L (3.5-5.1); Total Protein 6.6 g/dL (6.4-8.9)
[2020-12-22] MEDS ORDERED: lisinopriL 10 MG TABLET PO SCH (07:00)
[2020-12-22] MEDS ORDERED: amLODIPine 5 MG TABLET PO SCH (07:00)
[2020-12-22] MEDS: Apixaban 5 MG TABLET PO SCH (08:28)
[2020-12-22] MEDS: OLANZapine 10 MG TAB.RAPDIS PO SCH (08:28)
[2020-12-22] MEDS: OXcarbazepine 150 MG TABLET PO SCH (08:28)
[2020-12-22 10:30] VITALS: BP 129/80
[2020-12-23] MEDS ORDERED: BuPROPion XL (24 HR) 150 MG TABLET PO SCH (09:00)
== END 2020-12-22 13:32 | disposition other institution (70) ==
LOC: 3BNU 09:46 → EMEROOARM 09:46 → SUATTDRO 15:33 → 3BNU 16:33
PROVIDERS: ADMIT Internal Medicine; ATTEND Internal Medicine

== ENCOUNTER 2021-01-16 20:33 | Inpatient (IN) ==
[2021-01-16 20:58] LABS: Basophils # 0.1 K/mcL (0.0-0.2); Basophils % 0.8 %; Eosinophils # 0.3 K/mcL (0.0-0.6); Eosinophils % 2.6 %; Hematocrit 37.5 % (37.5-50.1); Hemoglobin 11.7 g/dL (12.9-16.9); Immature Granulocytes % 2.6 % (0-4); Lymphocytes % 8.7 %; Mean Corpuscular HGB Conc 31.2 g/dL (31.6-35.5); Mean Corpuscular Hemoglobin 28.7 pg (28.0-33.3); Mean Corpuscular Volume 92.1 fL (83.0-100.0); Mean Platelet Volume 8.3 fL (9.4-12.4); Monocytes # 1.1 K/mcL (0.0-1.3); Monocytes % 9.6 %; Neutrophils # 8.6 K/mcL (1.6-8.9); Platelet Count 380 K/mcL (140-400); Red Blood Count 4.07 M/mcL (4.19-5.50); Red Cell Distribution Width 14.7 % (11.5-14.5); Segmented Neutrophils % 75.7 %; White Blood Count 11.3 K/mcL (4.3-11.1)
[2021-01-16 21:21] LABS: Acetaminophen < 10 mcg/mL (10-20); BUN/Creatinine Ratio 18 (6-26); Blood Urea Nitrogen 22 mg/dL (6-20); Calcium 10.1 mg/dL (8.6-10.3); Carbon Dioxide 25 mEq/L (23-29); Chloride 104 mEq/L (98-107); Chol/HDL Ratio 4.4 (0-4.9); Cholesterol 203 mg/dL (< 200); Ethanol < 10 mg/dL (Less than 10); Glucose 91 mg/dL (70-105); HDL Cholesterol 46 mg/dL (40-59); Osmolality,Calculated 293 (280-300); Potassium 4.1 mEq/L (3.5-5.1); Salicylate < 2.5 mg/dL (15.0-30.0); Sodium 140 mEq/L (136-145); Triglycerides 583 mg/dL (< 150); eGFR For African Americans > 60 (> 60); eGFR For Non-African Americans > 60 (> 60)
[2021-01-16 21:22] LABS: Bilirubin,Urine Negative (Negative); Blood,Urine Small (Negative); Clarity,Urine Clear (Clear); Color,Urine Colorless (Yellow); Glucose,Urine (UA) Normal (Normal); Ketones,Urine Negative (Negative); Leukocyte Esterase,Urine Negative (Negative); Nitrite,Urine Negative (Negative); Protein,Urine Negative (Neg-Trace); Specific Gravity,Urine 1.007 (1.010-1.025); Urobilinogen,Urine Normal (Normal); WBC,Urine 0-3 per hpf (0-3)
[2021-01-16 21:28] LABS: Amphetamine Screen,Urine Negative ng/mL (Cutoff=1000); Barbiturate Screen,Urine Negative ng/mL (Cutoff=200); Benzodiazepines Screen,Urine Negative ng/mL (Cutoff=200); Cannabinoid Screen,Urine Negative ng/mL (Cutoff = 50); Cocaine Screen,Urine Negative ng/mL (Cutoff= 300); Opiate Screen,Urine Negative ng/mL (Cutoff=300); Phencyclidine Screen,Urine Negative ng/mL (Cutoff=25)
[2021-01-16 21:31] LABS: Estimated Average Glucose 123 mg/dl; Hemoglobin A1C 5.9 %
[2021-01-16 22:22] LABS: Troponin I < 0.03 ng/mL (< 0.04)
[2021-01-17] MEDS ORDERED: Acetaminophen 325 MG TABLET PO ONE (06:18)
[2021-01-17] MEDS ORDERED: Haloperidol Lactate 5 MG/ML VIAL IM ONE (14:32)
[2021-01-17] MEDS ORDERED: *HR* LORazepam 2 MG/ML VIAL IM PRN (16:15)
[2021-01-17] MEDS ORDERED: Haloperidol Lactate 5 MG/ML VIAL IM PRN (16:15)
[2021-01-17] MEDS ORDERED: Mag Hydrox/Al Hydrox/Simeth 30 ML UDC PO PRN (16:15)
[2021-01-17] MEDS ORDERED: MOM Conc 10 ML UD.LIQ PO PRN (16:15)
[2021-01-17] MEDS ORDERED: polyethylene glycoL 3350 17 GM POWD.PACK PO PRN (16:28)
[2021-01-17] MEDS: OXcarbazepine 150 MG TABLET PO SCH (20:28)
[2021-01-17] MEDS: Cholecalciferol (D-3) 1,000 UNIT (25MCG) TABLET PO SCH (20:28)
[2021-01-17] MEDS: lisinopriL 10 MG TABLET PO SCH (20:29)
[2021-01-17] MEDS: Acetaminophen 325 MG TABLET PO PRN (20:30)
[2021-01-17] MEDS: amLODIPine 5 MG TABLET PO SCH (20:30)
[2021-01-17] MEDS: hydrOXYzine pamoate 25 MG CAPSULE PO PRN (20:30)
[2021-01-17] MEDS: OLANZapine 5 MG TAB.RAPDIS PO SCH (20:31)
[2021-01-17] MEDS: Famotidine 20 MG TABLET PO SCH (20:31)
[2021-01-17] MEDS: Folic Acid 1 MG TABLET PO SCH (20:31)
[2021-01-17] MEDS: traZODone 50 MG TABLET PO PRN (20:31)
[2021-01-17] MEDS: Divalproex (12 HR) 500 MG TABLET PO SCH (20:31)
[2021-01-17] MEDS: Nicotine 21 MG PATCH.TD24 TD SCH (20:35)
[2021-01-17] MEDS: BuPROPion XL (24 HR) 150 MG TABLET PO SCH (20:37)
[2021-01-17] MEDS: Apixaban 5 MG TABLET PO SCH (21:36)
[2021-01-17] MEDS: Lactobacillus 1 EACH CAP.SPRINK PO SCH (21:36)
[2021-01-17] MEDS: Artificial Tears SOLN 15 ML BOTTLE BOTH EYES SCH (21:36)
[2021-01-18] MEDS: BuPROPion XL (24 HR) 150 MG TABLET PO SCH (08:43)
[2021-01-18] MEDS: OXcarbazepine 150 MG TABLET PO SCH ×2 (08:43→19:41)
[2021-01-18] MEDS: Folic Acid 1 MG TABLET PO SCH (08:45)
[2021-01-18] MEDS: Loratadine 10 MG TABLET PO SCH (08:45)
[2021-01-18] MEDS: amLODIPine 5 MG TABLET PO SCH (08:45)
[2021-01-18] MEDS: Famotidine 20 MG TABLET PO SCH ×2 (08:45→19:42)
[2021-01-18] MEDS: Divalproex (12 HR) 500 MG TABLET PO SCH ×2 (08:46→19:42)
[2021-01-18] MEDS: Lactobacillus 1 EACH CAP.SPRINK PO SCH (08:46)
[2021-01-18] MEDS: Cholecalciferol (D-3) 1,000 UNIT (25MCG) TABLET PO SCH ×2 (08:46→19:41)
[2021-01-18] MEDS: lisinopriL 10 MG TABLET PO SCH (08:46)
[2021-01-18] MEDS: OLANZapine 5 MG TAB.RAPDIS PO SCH ×2 (08:47→19:39)
[2021-01-18] MEDS: Apixaban 5 MG TABLET PO SCH ×2 (08:48→21:00)
[2021-01-18] MEDS: Nicotine 21 MG PATCH.TD24 TD SCH (08:53)
[2021-01-18] MEDS: Acetaminophen 325 MG TABLET PO PRN ×2 (09:25→19:40)
[2021-01-18] MEDS: *HR* LORazepam 1 MG TABLET PO PRN ×2 (11:03→19:40)
[2021-01-18] MEDS: haloperidoL 5 MG TABLET PO PRN ×2 (11:03→19:41)
[2021-01-18] MEDS: traZODone 50 MG TABLET PO PRN (19:42)
[2021-01-18] MEDS: hydrOXYzine pamoate 25 MG CAPSULE PO PRN (19:42)
[2021-01-18] MEDS: Artificial Tears SOLN 15 ML BOTTLE BOTH EYES SCH (19:44)
[2021-01-19] MEDS: amLODIPine 5 MG TABLET PO SCH (08:33)
[2021-01-19] MEDS: OLANZapine 5 MG TAB.RAPDIS PO SCH ×2 (08:34→20:48)
[2021-01-19] MEDS: Famotidine 20 MG TABLET PO SCH ×2 (08:35→20:49)
[2021-01-19] MEDS: lisinopriL 10 MG TABLET PO SCH (08:35)
[2021-01-19] MEDS: Lactobacillus 1 EACH CAP.SPRINK PO SCH (08:35)
[2021-01-19] MEDS: OXcarbazepine 150 MG TABLET PO SCH ×2 (08:36→20:48)
[2021-01-19] MEDS: Loratadine 10 MG TABLET PO SCH (08:36)
[2021-01-19] MEDS: BuPROPion XL (24 HR) 150 MG TABLET PO SCH (08:37)
[2021-01-19] MEDS: Apixaban 5 MG TABLET PO SCH ×2 (08:38→20:48)
[2021-01-19] MEDS: Cholecalciferol (D-3) 1,000 UNIT (25MCG) TABLET PO SCH ×2 (08:38→20:49)
[2021-01-19] MEDS: Folic Acid 1 MG TABLET PO SCH (08:38)
[2021-01-19] MEDS: Divalproex (12 HR) 500 MG TABLET PO SCH (08:39)
[2021-01-19] MEDS: *HR* LORazepam 1 MG TABLET PO PRN ×2 (09:12→17:55)
[2021-01-19] MEDS: haloperidoL 5 MG TABLET PO PRN ×2 (09:12→17:55)
[2021-01-19] MEDS: Divalproex (12 HR) 250 MG TABLET PO SCH ×2 (09:12→20:48)
[2021-01-19] MEDS: Nicotine 21 MG PATCH.TD24 TD SCH (09:52)
[2021-01-19] MEDS: hydrOXYzine pamoate 25 MG CAPSULE PO PRN (13:28)
[2021-01-19] MEDS: Acetaminophen 325 MG TABLET PO PRN (13:28)
[2021-01-19] MEDS: Artificial Tears SOLN 15 ML BOTTLE BOTH EYES SCH (21:00)
[2021-01-20] MEDS: OXcarbazepine 150 MG TABLET PO SCH (09:09)
[2021-01-20] MEDS: Folic Acid 1 MG TABLET PO SCH (09:09)
[2021-01-20] MEDS: amLODIPine 5 MG TABLET PO SCH (09:09)
[2021-01-20] MEDS: OLANZapine 5 MG TAB.RAPDIS PO SCH (09:09)
[2021-01-20] MEDS: Loratadine 10 MG TABLET PO SCH (09:09)
[2021-01-20] MEDS: BuPROPion XL (24 HR) 150 MG TABLET PO SCH (09:09)
[2021-01-20] MEDS: Lactobacillus 1 EACH CAP.SPRINK PO SCH (09:09)
[2021-01-20] MEDS: lisinopriL 10 MG TABLET PO SCH (09:09)
[2021-01-20] MEDS: Famotidine 20 MG TABLET PO SCH (09:09)
[2021-01-20] MEDS: Divalproex (12 HR) 250 MG TABLET PO SCH (09:10)
[2021-01-20] MEDS: Cholecalciferol (D-3) 1,000 UNIT (25MCG) TABLET PO SCH (09:10)
[2021-01-20] MEDS: Apixaban 5 MG TABLET PO SCH (09:10)
[2021-01-20] MEDS: Nicotine 21 MG PATCH.TD24 TD SCH (09:10)
[2021-01-20 10:46] VITALS: BP 131/74
== END 2021-01-20 16:45 | disposition other institution (70) | DRG 885 ==
LOC: EMEROOARM 20:33 → 1ANU 20:33
PROVIDERS: ADMIT Psychiatry & Neurology Psychiatry; ATTEND Psychiatry & Neurology Psychiatry

== ENCOUNTER 2022-01-29 11:41 | Inpatient (IN) ==
[2022-01-29 12:24] LABS: Basophils % 0.4 %; Eosinophils # 0.2 K/mcL (0.0-0.6); Hematocrit 40.8 % (37.5-50.1); Hemoglobin 12.4 g/dL (12.9-16.9); Immature Granulocytes % 2.1 % (0-4); Lymphocytes # 0.8 K/mcL (0.6-4.6); Lymphocytes % 8.6 %; Mean Corpuscular HGB Conc 30.4 g/dL (31.6-35.5); Mean Corpuscular Volume 95.6 fL (83.0-100.0); Mean Platelet Volume 8.7 fL (9.4-12.4); Monocytes # 1.2 K/mcL (0.0-1.3); Neutrophils # 7.1 K/mcL (1.6-8.9); Platelet Count 310 K/mcL (140-400); Red Blood Count 4.27 M/mcL (4.19-5.50); Red Cell Distribution Width 16.2 % (11.5-14.5); Segmented Neutrophils % 73.9 %; White Blood Count 9.6 K/mcL (4.3-11.1)
[2022-01-29 12:45] LABS: BUN/Creatinine Ratio 19 (6-26); Blood Urea Nitrogen 19 mg/dL (6-20); Calcium 9.5 mg/dL (8.6-10.3); Carbon Dioxide 29 mEq/L (23-29); Chloride 104 mEq/L (98-107); Glucose 132 mg/dL (70-105); Osmolality,Calculated 294 (280-300); Potassium 4.3 mEq/L (3.5-5.1); Sodium 140 mEq/L (136-145); eGFR For African Americans > 60 (> 60); eGFR For Non-African Americans > 60 (> 60)
[2022-01-29 12:46] LABS: Troponin I < 0.03 ng/mL (< 0.04)
[2022-01-29] MEDS ORDERED: Isovue-370 500 ML BOTTLE IVP ONE (13:10)
[2022-01-29] MEDS ORDERED: Azithromycin 500 MG in 0.9 % Sodium Chloride 250 ML IVPB ONE (13:11)
[2022-01-29] MEDS ORDERED: Ipratropium/Albuterol Neb 3 ML IH ONE ×2 (13:11→16:51)
[2022-01-29] MEDS ORDERED: methylPREDNISolone 125 MG/2 ML VIAL IVP ONE (13:11)
[2022-01-29 13:31] LABS: ABG Base Excess 4 mEq/L (-2 to 3); ABG HCO3 32 mEq/L (21-27); ABG Oxygen Saturation 94 % (95-98); ABG PCO2 63 mmHg (35-45); ABG PH 7.31 pH Units (7.32-7.45); ABG PO2 78 mmHg (85-104); ABG TCO2 34 mEq/L (20-26)
[2022-01-29 14:14] LABS: Influenza A PCR Negative (Negative); Influenza B PCR Negative (Negative); Resp. Syncytial Virus PCR Negative (Negative); SARS-CoV-2 by PCR (In House) Negative (Negative)
[2022-01-29] MEDS ORDERED: cefTRIAXone 1,000 MG in 0.9 % Sodium Chloride Mini Bag 100 ML IVPB ONE (16:51)
[2022-01-29] MEDS ORDERED: Ondansetron 4 MG/2 ML VIAL IVP PRN (17:45)
[2022-01-29] MEDS ORDERED: Naloxone 0.4 MG/ML INJ IVP PRN (17:45)
[2022-01-29] MEDS ORDERED: Acetaminophen 325 MG TABLET PO PRN (17:45)
[2022-01-29 18:05] LABS: ABG Base Excess 3 mEq/L (-2 to 3); ABG HCO3 31 mEq/L (21-27); ABG Oxygen Saturation 92 % (95-98); ABG PCO2 65 mmHg (35-45); ABG PH 7.29 pH Units (7.32-7.45); ABG PO2 75 mmHg (85-104); ABG TCO2 33 mEq/L (20-26); Blood Gas Modality NIV
[2022-01-29] MEDS ORDERED: Furosemide 20 MG/2 ML VIAL IVP ONE (18:42)
[2022-01-29] MEDS: Ipratropium/Albuterol Neb 3 ML IH SCH (19:57)
[2022-01-30 00:52] LABS: Basophils # 0.1 K/mcL (0.0-0.2); Basophils % 0.6 %; Hematocrit 42.2 % (37.5-50.1); Hemoglobin 13.2 g/dL (12.9-16.9); Immature Granulocytes % 2.7 % (0-4); Lymphocytes # 0.5 K/mcL (0.6-4.6); Lymphocytes % 6.3 %; Mean Corpuscular HGB Conc 31.3 g/dL (31.6-35.5); Mean Corpuscular Hemoglobin 30.1 pg (28.0-33.3); Mean Corpuscular Volume 96.1 fL (83.0-100.0); Mean Platelet Volume 8.9 fL (9.4-12.4); Monocytes # 0.5 K/mcL (0.0-1.3); Monocytes % 5.5 %; Neutrophils # 7.3 K/mcL (1.6-8.9); Platelet Count 340 K/mcL (140-400); Red Blood Count 4.39 M/mcL (4.19-5.50); Red Cell Distribution Width 16.1 % (11.5-14.5); Segmented Neutrophils % 84.9 %; White Blood Count 8.5 K/mcL (4.3-11.1)
[2022-01-30 00:55] LABS: VBG HCO3 33 mEq/L (21-27); VBG PCO2 76 mmHg (41-51); VBG PH 7.25 pH Units (7.32-7.42); VBG PO2 81 mmHg (25-50)
[2022-01-30 01:08] LABS: Alanine Aminotransferase 20 Units/L (7-52); Albumin 3.8 g/dL (3.5-5.7); Albumin/Globulin Ratio 1.2 (1.1-2.2); Alkaline Phosphatase 75 Units/L (34-104); Aspartate Amino Transferase 12 Units/L (13-39); BUN/Creatinine Ratio 19 (6-26); Bilirubin,Total 0.2 mg/dL (0.3-1.0); Blood Urea Nitrogen 20 mg/dL (6-20); Calcium 9.7 mg/dL (8.6-10.3); Carbon Dioxide 32 mEq/L (23-29); Chloride 104 mEq/L (98-107); Globulin 3.3 g/dL (2.4-3.5); Glucose 144 mg/dL (70-105); Osmolality,Calculated 301 (280-300); Potassium 4.7 mEq/L (3.5-5.1); Sodium 143 mEq/L (136-145); Total Protein 7.1 g/dL (6.4-8.9); eGFR For African Americans > 60 (> 60); eGFR For Non-African Americans > 60 (> 60)
[2022-01-30] MEDS: Ipratropium/Albuterol Neb 3 ML IH SCH ×4 (03:52→20:01)
[2022-01-30] MEDS ORDERED: Haloperidol Lactate 5 MG/ML VIAL IVP ONE (03:57)
[2022-01-30 04:19] LABS: ABG Base Excess 3 mEq/L (-2 to 3); ABG HCO3 32 mEq/L (21-27); ABG Oxygen Saturation 93 % (95-98); ABG PCO2 66 mmHg (35-45); ABG PH 7.29 pH Units (7.32-7.45); ABG PO2 78 mmHg (85-104); ABG TCO2 34 mEq/L (20-26)
[2022-01-30 12:18] LABS: VBG HCO3 31 mEq/L (21-27); VBG PCO2 56 mmHg (41-51); VBG PH 7.35 pH Units (7.32-7.42); VBG PO2 92 mmHg (25-50)
[2022-01-30] MEDS: OXcarbazepine 150 MG TABLET PO SCH ×2 (13:26→20:09)
[2022-01-30] MEDS: BuPROPion XL (24 HR) 150 MG TABLET PO SCH (13:27)
[2022-01-30] MEDS: amLODIPine 5 MG TABLET PO SCH (13:27)
[2022-01-30] MEDS: Lithium Carbonate 300 MG CAPSULE PO SCH ×2 (13:27→20:09)
[2022-01-30] MEDS: Metoprolol XL (24 HR) Succ 50 MG TAB.ER.24H PO SCH (13:27)
[2022-01-30] MEDS: OLANZapine 10 MG TAB.RAPDIS PO SCH ×2 (13:28→20:08)
[2022-01-30] MEDS: cefTRIAXone 1,000 MG in 0.9 % Sodium Chloride 10 ML IVP SCH (13:28)
[2022-01-30] MEDS: Azithromycin 500 MG in 0.9 % Sodium Chloride 250 ML IVPB SCH (13:32)
[2022-01-30] MEDS ORDERED: Furosemide 20 MG/2 ML VIAL IVP ONE (16:02)
[2022-01-30] MEDS: methylPREDNISolone 125 MG/2 ML VIAL IVP SCH (17:12)
[2022-01-30] MEDS ORDERED: methylPREDNISolone 125 MG/2 ML VIAL IVP SCH (20:00)
[2022-01-30] MEDS: Apixaban 5 MG TABLET PO SCH (20:08)
[2022-01-30] MEDS: polyethylene glycoL 3350 17 GM POWD.PACK PO SCH (20:08)
[2022-01-30] MEDS: Divalproex (12 HR) 250 MG TABLET PO SCH (20:09)
[2022-01-31] MEDS: Ipratropium/Albuterol Neb 3 ML IH SCH ×4 (04:09→20:12)
[2022-01-31] MEDS: OXcarbazepine 150 MG TABLET PO SCH ×2 (06:32→20:36)
[2022-01-31] MEDS: Apixaban 5 MG TABLET PO SCH ×2 (06:32→20:36)
[2022-01-31] MEDS: methylPREDNISolone 125 MG/2 ML VIAL IVP SCH ×2 (06:32→19:24)
[2022-01-31] MEDS: OLANZapine 10 MG TAB.RAPDIS PO SCH ×2 (06:33→20:43)
[2022-01-31] MEDS: Lithium Carbonate 300 MG CAPSULE PO SCH ×2 (06:33→20:43)
[2022-01-31] MEDS: Metoprolol XL (24 HR) Succ 50 MG TAB.ER.24H PO SCH (06:33)
[2022-01-31] MEDS: amLODIPine 5 MG TABLET PO SCH (06:33)
[2022-01-31] MEDS: BuPROPion XL (24 HR) 150 MG TABLET PO SCH (06:33)
[2022-01-31] MEDS: Divalproex (12 HR) 250 MG TABLET PO SCH ×2 (09:31→20:36)
[2022-01-31] MEDS: polyethylene glycoL 3350 17 GM POWD.PACK PO SCH ×2 (09:32→20:37)
[2022-01-31] MEDS: cefTRIAXone 1,000 MG in 0.9 % Sodium Chloride 10 ML IVP SCH (09:32)
[2022-01-31] MEDS ORDERED: Haloperidol Lactate 5 MG/ML VIAL IM ONE (12:50)
[2022-01-31] MEDS: Azithromycin 500 MG in 0.9 % Sodium Chloride 250 ML IVPB SCH (13:41)
[2022-02-01] MEDS: Ipratropium/Albuterol Neb 3 ML IH SCH ×2 (04:00→11:17)
[2022-02-01] MEDS: methylPREDNISolone 125 MG/2 ML VIAL IVP SCH (05:57)
[2022-02-01] MEDS: cefTRIAXone 1,000 MG in 0.9 % Sodium Chloride 10 ML IVP SCH (09:24)
[2022-02-01] MEDS: Metoprolol XL (24 HR) Succ 50 MG TAB.ER.24H PO SCH (09:25)
[2022-02-01] MEDS: polyethylene glycoL 3350 17 GM POWD.PACK PO SCH (09:25)
[2022-02-01] MEDS: Divalproex (12 HR) 250 MG TABLET PO SCH (09:25)
[2022-02-01] MEDS: OLANZapine 10 MG TAB.RAPDIS PO SCH (09:29)
[2022-02-01] MEDS: amLODIPine 5 MG TABLET PO SCH (09:29)
[2022-02-01] MEDS: Apixaban 5 MG TABLET PO SCH (09:29)
[2022-02-01] MEDS: Lithium Carbonate 300 MG CAPSULE PO SCH (09:29)
[2022-02-01 11:09] VITALS: TEMP 98.2
[2022-02-01] MEDS: OXcarbazepine 150 MG TABLET PO SCH (11:18)
[2022-02-01] MEDS: BuPROPion XL (24 HR) 150 MG TABLET PO SCH (11:19)
[2022-02-01 12:33] VITALS: BP 160/82; PULSE 78; O2SAT 91
== END 2022-02-01 12:50 | disposition home or self-care (01) | DRG 193 ==
LOC: 3NENU 11:41 → EMEROOARM 11:41 → SUATTDRO 18:31 → 3NENU 18:38
PROVIDERS: ADMIT Internal Medicine; ATTEND Nurse Practitioner

== ENCOUNTER 2022-02-24 17:25 | Inpatient (IN) ==
[2022-02-24] MEDS ORDERED: Ipratropium/Albuterol Neb 3 ML IH ONE (18:12)
[2022-02-24 18:29] LABS: Basophils # 0.1 K/mcL (0.0-0.2); Basophils % 0.3 %; Eosinophils # 0.2 K/mcL (0.0-0.6); Eosinophils % 1.2 %; Hematocrit 40.5 % (37.5-50.1); Hemoglobin 12.9 g/dL (12.9-16.9); INR 1.1; Immature Granulocytes % 1.8 % (0-4); Lymphocytes # 0.5 K/mcL (0.6-4.6); Lymphocytes % 3.2 %; Mean Corpuscular HGB Conc 31.9 g/dL (31.6-35.5); Mean Corpuscular Hemoglobin 30.2 pg (28.0-33.3); Mean Corpuscular Volume 94.8 fL (83.0-100.0); Mean Platelet Volume 9.2 fL (9.4-12.4); Neutrophils # 12.5 K/mcL (1.6-8.9); Platelet Count 325 K/mcL (140-400); Prothrombin Time 12.5 Seconds (9.4-12.1); Red Blood Count 4.27 M/mcL (4.19-5.50); Red Cell Distribution Width 16.1 % (11.5-14.5); Segmented Neutrophils % 86.5 %; White Blood Count 14.5 K/mcL (4.3-11.1)
[2022-02-24 18:30] LABS: Alanine Aminotransferase 20 Units/L (7-52); Albumin 3.9 g/dL (3.5-5.7); Albumin/Globulin Ratio 1.6 (1.1-2.2); Alkaline Phosphatase 92 Units/L (34-104); Aspartate Amino Transferase 15 Units/L (13-39); BUN/Creatinine Ratio 16 (6-26); Bilirubin,Total 0.2 mg/dL (0.3-1.0); Blood Urea Nitrogen 17 mg/dL (6-20); Calcium 9.6 mg/dL (8.6-10.3); Carbon Dioxide 28 mEq/L (23-29); Chloride 104 mEq/L (98-107); Ethanol < 10 mg/dL (Less than 10); Globulin 2.5 g/dL (2.4-3.5); Glucose 156 mg/dL (70-105); Osmolality,Calculated 293 (280-300); Potassium 4.1 mEq/L (3.5-5.1); Sodium 139 mEq/L (136-145); Total Protein 6.4 g/dL (6.4-8.9); eGFR For African Americans > 60 (> 60); eGFR For Non-African Americans > 60 (> 60)
[2022-02-24 18:31] LABS: Amphetamine Screen,Urine Negative ng/mL (Cutoff=1000); Barbiturate Screen,Urine Negative ng/mL (Cutoff=200); Benzodiazepines Screen,Urine Negative ng/mL (Cutoff=200); Cannabinoid Screen,Urine Negative ng/mL (Cutoff = 50); Cocaine Screen,Urine Negative ng/mL (Cutoff= 300); Opiate Screen,Urine Negative ng/mL (Cutoff=300); Phencyclidine Screen,Urine Negative ng/mL (Cutoff=25)
[2022-02-24 19:06] LABS: Influenza A PCR Positive (Negative); Influenza B PCR Negative (Negative); Resp. Syncytial Virus PCR Negative (Negative)
[2022-02-24 19:10] LABS: SARS-CoV-2 by PCR (In House) Negative (Negative)
[2022-02-24 19:45] LABS: VBG HCO3 31 mEq/L (21-27); VBG PCO2 65 mmHg (41-51); VBG PH 7.28 pH Units (7.32-7.42); VBG PO2 54 mmHg (25-50)
[2022-02-24 19:59] LABS: Bilirubin,Urine Negative (Negative); Blood,Urine Trace (Negative); Clarity,Urine Clear (Clear); Color,Urine Light-Yellow (Yellow); Glucose,Urine (UA) Normal (Normal); Ketones,Urine Negative (Negative); Leukocyte Esterase,Urine Negative (Negative); Mucus,Urine Few per lpf (None-Few); Nitrite,Urine Negative (Negative); PH,Urine 6.5 pH Units (5.0-8.0); Protein,Urine 30 mg/dL (Neg-Trace); Specific Gravity,Urine 1.013 (1.010-1.025); Urobilinogen,Urine Normal (Normal); WBC,Urine 0-3 per hpf (0-3)
[2022-02-24] MEDS ORDERED: methylPREDNISolone 125 MG/2 ML VIAL IVP ONE (20:03)
[2022-02-24] MEDS ORDERED: Isovue-370 500 ML BOTTLE IVP ONE (20:50)
[2022-02-24] MEDS ORDERED: Haloperidol Lactate 5 MG/ML VIAL IVP ONE (22:28)
[2022-02-24] MEDS ORDERED: Melatonin 3 MG TABLET PO PRN (22:30)
[2022-02-24] MEDS ORDERED: Naloxone 0.4 MG/ML INJ IVP PRN (22:30)
[2022-02-24] MEDS: Ipratropium/Albuterol Neb 3 ML IH ONE ×2 (23:11→23:25)
[2022-02-24] MEDS ORDERED: DIASTAT 10 MG RC PRN (23:14)
[2022-02-24] MEDS ORDERED: Acetaminophen 325 MG TABLET PO PRN (23:14)
[2022-02-24] MEDS ORDERED: Albuterol 2.5 MG/3 ML NEBULIZER IH PRN (23:14)
[2022-02-25 01:27] LABS: Basophils % 0.3 %; Eosinophils % 0.3 %; Hemoglobin 12.3 g/dL (12.9-16.9); Immature Granulocytes % 1.1 % (0-4); Lymphocytes # 0.2 K/mcL (0.6-4.6); Lymphocytes % 1.6 %; Mean Corpuscular HGB Conc 31.5 g/dL (31.6-35.5); Mean Corpuscular Hemoglobin 29.9 pg (28.0-33.3); Mean Corpuscular Volume 94.9 fL (83.0-100.0); Mean Platelet Volume 9.3 fL (9.4-12.4); Monocytes # 0.4 K/mcL (0.0-1.3); Monocytes % 2.9 %; Platelet Count 289 K/mcL (140-400); Red Blood Count 4.11 M/mcL (4.19-5.50); Red Cell Distribution Width 16.1 % (11.5-14.5); Segmented Neutrophils % 93.8 %; White Blood Count 11.9 K/mcL (4.3-11.1)
[2022-02-25 01:29] LABS: Neutrophils # 11.2 K/mcL (1.6-8.9)
[2022-02-25 01:47] LABS: Alanine Aminotransferase 18 Units/L (7-52); Albumin 3.8 g/dL (3.5-5.7); Albumin/Globulin Ratio 1.5 (1.1-2.2); Alkaline Phosphatase 86 Units/L (34-104); Aspartate Amino Transferase 11 Units/L (13-39); BUN/Creatinine Ratio 15 (6-26); Bilirubin,Total 0.2 mg/dL (0.3-1.0); Blood Urea Nitrogen 15 mg/dL (6-20); Calcium 9.4 mg/dL (8.6-10.3); Carbon Dioxide 26 mEq/L (23-29); Chloride 103 mEq/L (98-107); Globulin 2.5 g/dL (2.4-3.5); Glucose 166 mg/dL (70-105); Osmolality,Calculated 289 (280-300); Phosphorous 4.1 mg/dL (2.7-4.5); Potassium 4.6 mEq/L (3.5-5.1); Sodium 137 mEq/L (136-145); Total Protein 6.3 g/dL (6.4-8.9); eGFR For African Americans > 60 (> 60); eGFR For Non-African Americans > 60 (> 60)
[2022-02-25 02:18] LABS: Platelet Estimate Normal (Normal)
[2022-02-25] MEDS: cefTRIAXone 1,000 MG in 0.9 % Sodium Chloride 10 ML IVP SCH ×2 (02:46→10:43)
[2022-02-25] MEDS: Ipratropium/Albuterol Neb 3 ML IH SCH ×4 (03:43→20:36)
[2022-02-25] MEDS: Lithium Carbonate 300 MG CAPSULE PO SCH ×3 (10:41→12:02)
[2022-02-25] MEDS: BuPROPion XL (24 HR) 150 MG TABLET PO SCH ×2 (10:41→10:57)
[2022-02-25] MEDS: Metoprolol XL (24 HR) Succ 50 MG TAB.ER.24H PO SCH ×2 (10:41→10:57)
[2022-02-25] MEDS: Lactobacillus 1 EACH CAP.SPRINK PO SCH ×2 (10:42→10:56)
[2022-02-25] MEDS: Divalproex (12 HR) 250 MG TABLET PO SCH ×4 (10:42→20:20)
[2022-02-25] MEDS: Apixaban 5 MG TABLET PO SCH ×3 (10:42→20:20)
[2022-02-25] MEDS: MethylPREDNISolone 40 MG/ML VIAL IVP SCH ×2 (10:42→17:06)
[2022-02-25] MEDS: Famotidine 20 MG TABLET PO SCH ×3 (10:42→20:20)
[2022-02-25] MEDS: amLODIPine 5 MG TABLET PO SCH ×2 (10:42→10:57)
[2022-02-25] MEDS: Divalproex (12 HR) 500 MG TABLET PO SCH ×4 (10:42→20:19)
[2022-02-25 15:40] LABS: ABG Base Excess 3 mEq/L (-2 to 3); ABG HCO3 30 mEq/L (21-27); ABG Oxygen Saturation 94 % (95-98); ABG PCO2 51 mmHg (35-45); ABG PH 7.37 pH Units (7.32-7.45); ABG PO2 75 mmHg (85-104); ABG TCO2 31 mEq/L (20-26)
[2022-02-25] MEDS: *HR* LORazepam 2 MG/ML VIAL IVP PRN (19:46)
[2022-02-25] MEDS: Lithium Carbonate ER 450 MG TABLET.ER PO SCH (20:20)
[2022-02-26] MEDS: MethylPREDNISolone 40 MG/ML VIAL IVP SCH ×3 (01:19→17:26)
[2022-02-26] MEDS: Ipratropium/Albuterol Neb 3 ML IH SCH ×4 (04:13→20:07)
[2022-02-26] MEDS ORDERED: Ipratropium/Albuterol Neb 3 ML IH ONE (08:31)
[2022-02-26] MEDS: Divalproex (12 HR) 500 MG TABLET PO SCH ×2 (09:21→20:29)
[2022-02-26] MEDS: Apixaban 5 MG TABLET PO SCH ×2 (09:21→20:29)
[2022-02-26] MEDS: BuPROPion XL (24 HR) 150 MG TABLET PO SCH (09:21)
[2022-02-26] MEDS: amLODIPine 5 MG TABLET PO SCH (09:21)
[2022-02-26] MEDS: Lithium Carbonate 300 MG CAPSULE PO SCH (09:22)
[2022-02-26] MEDS: Metoprolol XL (24 HR) Succ 50 MG TAB.ER.24H PO SCH (09:22)
[2022-02-26] MEDS: Lactobacillus 1 EACH CAP.SPRINK PO SCH (09:22)
[2022-02-26] MEDS: Divalproex (12 HR) 250 MG TABLET PO SCH ×2 (09:22→20:28)
[2022-02-26] MEDS: Famotidine 20 MG TABLET PO SCH ×2 (09:22→20:29)
[2022-02-26] MEDS: cefTRIAXone 1,000 MG in 0.9 % Sodium Chloride 10 ML IVP SCH (09:31)
[2022-02-26 14:03] LABS: Hematocrit 40.2 % (37.5-50.1); Hemoglobin 12.2 g/dL (12.9-16.9); Mean Corpuscular HGB Conc 30.3 g/dL (31.6-35.5); Mean Corpuscular Hemoglobin 29.5 pg (28.0-33.3); Mean Corpuscular Volume 97.1 fL (83.0-100.0); Mean Platelet Volume 8.8 fL (9.4-12.4); Platelet Count 324 K/mcL (140-400); Red Blood Count 4.14 M/mcL (4.19-5.50); Red Cell Distribution Width 16.2 % (11.5-14.5)
[2022-02-26 14:25] LABS: BUN/Creatinine Ratio 16 (6-26); Blood Urea Nitrogen 16 mg/dL (6-20); Calcium 9.4 mg/dL (8.6-10.3); Carbon Dioxide 32 mEq/L (23-29); Chloride 102 mEq/L (98-107); Glucose 198 mg/dL (70-105); Osmolality,Calculated 297 (280-300); Potassium 4.5 mEq/L (3.5-5.1); Sodium 140 mEq/L (136-145); eGFR For African Americans > 60 (> 60); eGFR For Non-African Americans > 60 (> 60)
[2022-02-26] MEDS: Lithium Carbonate ER 450 MG TABLET.ER PO SCH (20:29)
[2022-02-27] MEDS: MethylPREDNISolone 40 MG/ML VIAL IVP SCH ×4 (01:50→23:38)
[2022-02-27] MEDS: Ipratropium/Albuterol Neb 3 ML IH SCH ×4 (03:45→22:40)
[2022-02-27 05:46] LABS: Hemoglobin 12.9 g/dL (12.9-16.9); Mean Corpuscular Hemoglobin 29.2 pg (28.0-33.3); Mean Corpuscular Volume 97.3 fL (83.0-100.0); Mean Platelet Volume 9.1 fL (9.4-12.4); Platelet Count 385 K/mcL (140-400); Red Blood Count 4.42 M/mcL (4.19-5.50); Red Cell Distribution Width 15.9 % (11.5-14.5); White Blood Count 7.8 K/mcL (4.3-11.1)
[2022-02-27 06:05] LABS: BUN/Creatinine Ratio 17 (6-26); Blood Urea Nitrogen 18 mg/dL (6-20); Calcium 9.8 mg/dL (8.6-10.3); Carbon Dioxide 31 mEq/L (23-29); Chloride 103 mEq/L (98-107); Glucose 159 mg/dL (70-105); Osmolality,Calculated 295 (280-300); Potassium 4.9 mEq/L (3.5-5.1); Sodium 140 mEq/L (136-145); eGFR For African Americans > 60 (> 60); eGFR For Non-African Americans > 60 (> 60)
[2022-02-27] MEDS: Apixaban 5 MG TABLET PO SCH ×2 (07:52→19:49)
[2022-02-27] MEDS: Lithium Carbonate 300 MG CAPSULE PO SCH (07:52)
[2022-02-27] MEDS: BuPROPion XL (24 HR) 150 MG TABLET PO SCH (07:52)
[2022-02-27] MEDS: amLODIPine 5 MG TABLET PO SCH (07:52)
[2022-02-27] MEDS: Divalproex (12 HR) 250 MG TABLET PO SCH ×2 (07:53→19:48)
[2022-02-27] MEDS: Lactobacillus 1 EACH CAP.SPRINK PO SCH (07:53)
[2022-02-27] MEDS: Metoprolol XL (24 HR) Succ 50 MG TAB.ER.24H PO SCH (07:53)
[2022-02-27] MEDS: Divalproex (12 HR) 500 MG TABLET PO SCH ×2 (07:53→19:49)
[2022-02-27] MEDS: Famotidine 20 MG TABLET PO SCH ×2 (07:53→19:49)
[2022-02-27] MEDS: cefTRIAXone 1,000 MG in 0.9 % Sodium Chloride 10 ML IVP SCH (07:58)
[2022-02-27] MEDS: Lithium Carbonate ER 450 MG TABLET.ER PO SCH (19:49)
[2022-02-28 03:35] LABS: Hematocrit 40.9 % (37.5-50.1); Hemoglobin 12.5 g/dL (12.9-16.9); Mean Corpuscular HGB Conc 30.6 g/dL (31.6-35.5); Mean Corpuscular Hemoglobin 29.7 pg (28.0-33.3); Mean Corpuscular Volume 97.1 fL (83.0-100.0); Platelet Count 355 K/mcL (140-400); Red Blood Count 4.21 M/mcL (4.19-5.50); Red Cell Distribution Width 15.7 % (11.5-14.5); White Blood Count 8.3 K/mcL (4.3-11.1)
[2022-02-28 03:53] LABS: BUN/Creatinine Ratio 18 (6-26); Blood Urea Nitrogen 18 mg/dL (6-20); Calcium 9.7 mg/dL (8.6-10.3); Carbon Dioxide 28 mEq/L (23-29); Chloride 101 mEq/L (98-107); Glucose 199 mg/dL (70-105); Osmolality,Calculated 293 (280-300); Potassium 4.5 mEq/L (3.5-5.1); Sodium 138 mEq/L (136-145); eGFR For African Americans > 60 (> 60); eGFR For Non-African Americans > 60 (> 60)
[2022-02-28] MEDS: Ipratropium/Albuterol Neb 3 ML IH SCH ×2 (04:18→10:46)
[2022-02-28 07:30] VITALS: BP 142/88; PULSE 66; TEMP 97.8; O2SAT 92
[2022-02-28] MEDS: *HR* LORazepam 2 MG/ML VIAL IVP PRN (09:44)
[2022-02-28] MEDS: cefTRIAXone 1,000 MG in 0.9 % Sodium Chloride 10 ML IVP SCH (09:45)
[2022-02-28] MEDS: MethylPREDNISolone 40 MG/ML VIAL IVP SCH (09:46)
[2022-02-28] MEDS: Lactobacillus 1 EACH CAP.SPRINK PO SCH (09:46)
[2022-02-28] MEDS: BuPROPion XL (24 HR) 150 MG TABLET PO SCH (09:46)
[2022-02-28] MEDS: Divalproex (12 HR) 250 MG TABLET PO SCH (09:46)
[2022-02-28] MEDS: Apixaban 5 MG TABLET PO SCH (09:47)
[2022-02-28] MEDS: amLODIPine 5 MG TABLET PO SCH (09:47)
[2022-02-28] MEDS: Famotidine 20 MG TABLET PO SCH (09:48)
[2022-02-28] MEDS: Metoprolol XL (24 HR) Succ 50 MG TAB.ER.24H PO SCH (09:48)
[2022-02-28] MEDS: Divalproex (12 HR) 500 MG TABLET PO SCH (09:48)
[2022-02-28] MEDS: Lithium Carbonate 300 MG CAPSULE PO SCH (10:00)
== END 2022-02-28 10:52 | DRG 871 ==
LOC: EMEROOARM 17:25 → 3NENU 17:25 → SUATTDRO 22:21 → 3NENU 22:58
PROVIDERS: ADMIT Student in an Organized Health Care Education/Training Program; ATTEND Family Medicine

== ENCOUNTER 2022-04-29 09:26 | Inpatient (IN) ==
[2022-04-29 10:09] LABS: Hematocrit 40.8 % (37.5-50.1); Hemoglobin 12.6 g/dL (12.9-16.9); Mean Corpuscular HGB Conc 30.9 g/dL (31.6-35.5); Mean Corpuscular Hemoglobin 30.2 pg (28.0-33.3); Mean Corpuscular Volume 97.8 fL (83.0-100.0); Mean Platelet Volume 8.7 fL (9.4-12.4); Nucleated Red Blood Cells 0.2 /100 WBC (0); Platelet Count 307 K/mcL (140-400); Red Blood Count 4.17 M/mcL (4.19-5.50); Red Cell Distribution Width 16.8 % (11.5-14.5); White Blood Count 10.2 K/mcL (4.3-11.1)
[2022-04-29 10:28] LABS: Alanine Aminotransferase 27 Units/L (7-52); Albumin 3.9 g/dL (3.5-5.7); Albumin/Globulin Ratio 1.3 (1.1-2.2); Alkaline Phosphatase 92 Units/L (34-104); Aspartate Amino Transferase 15 Units/L (13-39); BUN/Creatinine Ratio 14 (6-26); Bilirubin,Indirect 0.2 mg/dL (0.0-1.0); Bilirubin,Total 0.2 mg/dL (0.3-1.0); Blood Urea Nitrogen 14 mg/dL (6-20); Calcium 9.4 mg/dL (8.6-10.3); Carbon Dioxide 30 mEq/L (23-29); Chloride 106 mEq/L (98-107); Globulin 2.9 g/dL (2.4-3.5); Glucose 133 mg/dL (70-105); Lipase 15 Units/L (11-82); Osmolality,Calculated 298 (280-300); Potassium 4.4 mEq/L (3.5-5.1); Sodium 143 mEq/L (136-145); Total Protein 6.8 g/dL (6.4-8.9); eGFR For African Americans > 60 (> 60); eGFR For Non-African Americans > 60 (> 60)
[2022-04-29 10:29] LABS: Troponin I < 0.03 ng/mL (< 0.04)
[2022-04-29 10:44] LABS: Influenza A PCR Negative (Negative); Influenza B PCR Negative (Negative); Resp. Syncytial Virus PCR Negative (Negative)
[2022-04-29 10:46] LABS: SARS-CoV-2 by PCR (In House) Negative (Negative)
[2022-04-29 10:48] LABS: Eosinophils # 0.2 K/mcL (0.0-0.6); Lymphocytes # 1.4 K/mcL (0.6-4.6); Monocytes # 0.8 K/mcL (0.0-1.3); Neutrophils # 7.8 K/mcL (1.6-8.9); Platelet Estimate Normal (Normal)
[2022-04-29 10:49] LABS: Bilirubin,Urine Negative (Negative); Blood,Urine Small (Negative); Clarity,Urine Clear (Clear); Color,Urine Colorless (Yellow); Glucose,Urine (UA) Normal (Normal); Ketones,Urine Negative (Negative); Leukocyte Esterase,Urine Negative (Negative); Nitrite,Urine Negative (Negative); PH,Urine 6.5 pH Units (5.0-8.0); Protein,Urine 50 mg/dL (Neg-Trace); Specific Gravity,Urine 1.008 (1.010-1.025); Urobilinogen,Urine Normal (Normal); WBC,Urine 0-3 per hpf (0-3)
[2022-04-29 11:00] LABS: ABG Base Excess 3 mEq/L (-2 to 3); ABG HCO3 32 mEq/L (21-27); ABG Oxygen Saturation 93 % (95-98); ABG PCO2 72 mmHg (35-45); ABG PH 7.26 pH Units (7.32-7.45); ABG PO2 81 mmHg (85-104); ABG TCO2 34 mEq/L (20-26)
[2022-04-29] MEDS ORDERED: Ipratropium/Albuterol Neb 3 ML IH ONE (11:08)
[2022-04-29] MEDS ORDERED: Furosemide 40 MG/4 ML VIAL IVP ONE (11:08)
[2022-04-29] MEDS ORDERED: cefTRIAXone 1,000 MG in Water for inj. (sterile) 10 ML IVP ONE (12:06)
[2022-04-29] MEDS ORDERED: methylPREDNISolone 125 MG/2 ML VIAL IVP ONE (12:06)
[2022-04-29] MEDS ORDERED: Azithromycin 500 MG in 0.9 % Sodium Chloride 250 ML IVPB ONE (12:06)
[2022-04-29] MEDS ORDERED: Naloxone 0.4 MG/ML INJ IVP PRN (13:52)
[2022-04-29] MEDS ORDERED: Ondansetron 4 MG/2 ML VIAL IVP PRN (13:52)
[2022-04-29] MEDS ORDERED: Ipratropium/Albuterol Neb 3 ML IH PRN (13:54)
[2022-04-29] MEDS ORDERED: Perflutren Lipid Microsphere 1.3 ML in 0.9 % Sodium Chloride 8.7 ML IVP PRN (14:24)
[2022-04-29 14:33] LABS: ABG Base Excess 4 mEq/L (-2 to 3); ABG HCO3 33 mEq/L (21-27); ABG Oxygen Saturation 91 % (95-98); ABG PCO2 64 mmHg (35-45); ABG PH 7.32 pH Units (7.32-7.45); ABG PO2 69 mmHg (85-104); ABG TCO2 35 mEq/L (20-26)
[2022-04-29] MEDS: Azithromycin 500 MG in 0.9 % Sodium Chloride 250 ML IVPB SCH (16:52)
[2022-04-29] MEDS: methylPREDNISolone 125 MG/2 ML VIAL IVP SCH (16:53)
[2022-04-30] MEDS: methylPREDNISolone 125 MG/2 ML VIAL IVP SCH ×3 (00:04→17:19)
[2022-04-30] MEDS: OLANZapine 5 MG TAB.RAPDIS PO SCH ×2 (04:08→19:36)
[2022-04-30] MEDS: Divalproex (24 HR) 500 MG TABLET PO SCH ×2 (04:23→19:36)
[2022-04-30] MEDS: Divalproex (24 HR) 250 MG TABLET PO SCH ×2 (04:23→19:37)
[2022-04-30] MEDS ORDERED: Carbamide Peroxide 150 DROP/15 ML BOTTLE BOTH EARS PRN (07:22)
[2022-04-30] MEDS ORDERED: Acetaminophen 325 MG TABLET PO PRN (07:22)
[2022-04-30] MEDS ORDERED: Hydrocortisone Acetate 25 MG RECTAL SUPPOSITORY RC PRN (07:22)
[2022-04-30 07:39] LABS: BUN/Creatinine Ratio 17 (6-26); Blood Urea Nitrogen 19 mg/dL (6-20); Calcium 8.9 mg/dL (8.6-10.3); Carbon Dioxide 32 mEq/L (23-29); Chloride 103 mEq/L (98-107); Glucose 153 mg/dL (70-105); Magnesium 2.1 mg/dL (1.6-2.6); Osmolality,Calculated 299 (280-300); Potassium 4.3 mEq/L (3.5-5.1); Sodium 142 mEq/L (136-145); eGFR For African Americans > 60 (> 60); eGFR For Non-African Americans > 60 (> 60)
[2022-04-30 07:40] LABS: Basophils # 0.1 K/mcL (0.0-0.2); Basophils % 0.4 %; Eosinophils % 0.1 %; Hematocrit 40.3 % (37.5-50.1); Hemoglobin 12.4 g/dL (12.9-16.9); Immature Granulocytes % 2.9 % (0-4); Lymphocytes # 0.7 K/mcL (0.6-4.6); Mean Corpuscular HGB Conc 30.8 g/dL (31.6-35.5); Mean Corpuscular Hemoglobin 30.2 pg (28.0-33.3); Mean Corpuscular Volume 98.1 fL (83.0-100.0); Mean Platelet Volume 9.1 fL (9.4-12.4); Monocytes # 0.7 K/mcL (0.0-1.3); Monocytes % 4.7 %; Neutrophils # 12.1 K/mcL (1.6-8.9); Platelet Count 291 K/mcL (140-400); Red Blood Count 4.11 M/mcL (4.19-5.50); Segmented Neutrophils % 86.9 %; White Blood Count 13.9 K/mcL (4.3-11.1)
[2022-04-30 07:41] LABS: Platelet Estimate Normal (Normal)
[2022-04-30 07:51] LABS: INR 1.1; Prothrombin Time 12.4 Seconds (9.4-12.1)
[2022-04-30] MEDS ORDERED: Lactulose Oral Soln 20 GM/30 ML UDC PO PRN (07:52)
[2022-04-30] MEDS ORDERED: MOM Conc 10 ML UD.LIQ PO PRN (07:54)
[2022-04-30] MEDS: Metoprolol XL (24 HR) Succ 50 MG TAB.ER.24H PO SCH (09:47)
[2022-04-30] MEDS: Lithium Carbonate 300 MG CAPSULE PO SCH (09:47)
[2022-04-30] MEDS: Budesonide/Formoterol 80/4.5 1 PUFF INH IH SCH ×2 (10:45→19:54)
[2022-04-30] MEDS: Azithromycin 500 MG in 0.9 % Sodium Chloride 250 ML IVPB SCH (17:18)
[2022-04-30] MEDS: calcium polycarbophiL 625 MG TABLET PO SCH (19:36)
[2022-04-30] MEDS: OXcarbazepine 150 MG TABLET PO SCH (19:36)
[2022-04-30] MEDS: Apixaban 5 MG TABLET PO SCH (19:44)
[2022-04-30] MEDS: polyethylene glycoL 3350 17 GM POWD.PACK PO SCH (19:51)
[2022-04-30] MEDS ORDERED: Lithium Carbonate ER 450 MG TABLET.ER PO SCH (20:00)
[2022-05-01] MEDS: methylPREDNISolone 125 MG/2 ML VIAL IVP SCH ×2 (00:33→08:11)
[2022-05-01 04:37] LABS: ABG Base Excess 2 mEq/L (-2 to 3); ABG HCO3 30 mEq/L (21-27); ABG Oxygen Saturation 93 % (95-98); ABG PCO2 57 mmHg (35-45); ABG PH 7.32 pH Units (7.32-7.45); ABG PO2 74 mmHg (85-104); ABG TCO2 31 mEq/L (20-26)
[2022-05-01 05:11] LABS: Basophils % 0.3 %; Eosinophils % 0.1 %; Hematocrit 39.5 % (37.5-50.1); Hemoglobin 11.9 g/dL (12.9-16.9); Immature Granulocytes % 2.3 % (0-4); Lymphocytes # 0.6 K/mcL (0.6-4.6); Lymphocytes % 4.8 %; Mean Corpuscular HGB Conc 30.1 g/dL (31.6-35.5); Mean Corpuscular Hemoglobin 29.8 pg (28.0-33.3); Mean Corpuscular Volume 98.8 fL (83.0-100.0); Mean Platelet Volume 8.7 fL (9.4-12.4); Monocytes # 0.3 K/mcL (0.0-1.3); Monocytes % 2.1 %; Neutrophils # 11.6 K/mcL (1.6-8.9); Platelet Count 297 K/mcL (140-400); Segmented Neutrophils % 90.4 %; White Blood Count 12.8 K/mcL (4.3-11.1)
[2022-05-01 05:27] LABS: BUN/Creatinine Ratio 23 (6-26); Blood Urea Nitrogen 25 mg/dL (6-20); Calcium 9.5 mg/dL (8.6-10.3); Carbon Dioxide 31 mEq/L (23-29); Chloride 101 mEq/L (98-107); Glucose 173 mg/dL (70-105); Osmolality,Calculated 295 (280-300); Potassium 4.3 mEq/L (3.5-5.1); Sodium 138 mEq/L (136-145); eGFR For African Americans > 60 (> 60); eGFR For Non-African Americans > 60 (> 60)
[2022-05-01] MEDS ORDERED: Folic Acid 1 MG TABLET PO SCH (07:00)
[2022-05-01] MEDS ORDERED: amLODIPine 5 MG TABLET PO SCH (07:00)
[2022-05-01] MEDS ORDERED: BuPROPion XL (24 HR) 150 MG TABLET PO SCH (07:00)
[2022-05-01] MEDS ORDERED: Lactobacillus 1 EACH CAP.SPRINK PO SCH (07:00)
[2022-05-01] MEDS: Budesonide/Formoterol 80/4.5 1 PUFF INH IH SCH (07:26)
[2022-05-01] MEDS: OLANZapine 5 MG TAB.RAPDIS PO SCH (07:33)
[2022-05-01] MEDS: calcium polycarbophiL 625 MG TABLET PO SCH (07:34)
[2022-05-01] MEDS: Metoprolol XL (24 HR) Succ 50 MG TAB.ER.24H PO SCH (07:34)
[2022-05-01] MEDS: Divalproex (24 HR) 250 MG TABLET PO SCH (07:35)
[2022-05-01] MEDS: Lithium Carbonate 300 MG CAPSULE PO SCH (07:35)
[2022-05-01] MEDS: Apixaban 5 MG TABLET PO SCH (07:35)
[2022-05-01] MEDS: Divalproex (24 HR) 500 MG TABLET PO SCH (07:41)
[2022-05-01] MEDS: OXcarbazepine 150 MG TABLET PO SCH (07:41)
[2022-05-01] MEDS: polyethylene glycoL 3350 17 GM POWD.PACK PO SCH (08:10)
[2022-05-01 11:04] LABS: Amphetamine Screen,Urine Negative ng/mL (Cutoff=1000); Barbiturate Screen,Urine Negative ng/mL (Cutoff=200); Benzodiazepines Screen,Urine Negative ng/mL (Cutoff=200); Cannabinoid Screen,Urine Negative ng/mL (Cutoff = 50); Cocaine Screen,Urine Negative ng/mL (Cutoff= 300); Opiate Screen,Urine Negative ng/mL (Cutoff=300); Phencyclidine Screen,Urine Negative ng/mL (Cutoff=25)
[2022-05-01 15:06] VITALS: BP 140/82; PULSE 65; TEMP 97.9; O2SAT 98
[2022-05-12] MEDS ORDERED: Haloperidol Decanoate 50 MG/ML VIAL IM SCH (09:00)
== END 2022-05-01 17:05 | disposition home or self-care (01) | DRG 190 ==
LOC: EMEROOARM 09:26 → 3NENU 09:26
PROVIDERS: ADMIT Student in an Organized Health Care Education/Training Program; ATTEND Student in an Organized Health Care Education/Training Program

== ENCOUNTER 2022-07-05 20:30 | Inpatient (IN) ==
[2022-07-05 22:54] LABS: Basophils % 0.5 %; Eosinophils # 0.3 K/mcL (0.0-0.6); Eosinophils % 3.3 %; Hemoglobin 12.5 g/dL (12.9-16.9); Immature Granulocytes % 2.3 % (0-4); Lymphocytes # 1.2 K/mcL (0.6-4.6); Lymphocytes % 14.2 %; Mean Corpuscular HGB Conc 30.5 g/dL (31.6-35.5); Mean Corpuscular Hemoglobin 29.8 pg (28.0-33.3); Mean Corpuscular Volume 97.9 fL (83.0-100.0); Mean Platelet Volume 8.8 fL (9.4-12.4); Monocytes # 0.8 K/mcL (0.0-1.3); Monocytes % 9.7 %; Platelet Count 292 K/mcL (140-400); Red Blood Count 4.19 M/mcL (4.19-5.50); White Blood Count 8.5 K/mcL (4.3-11.1)
[2022-07-05] MEDS ORDERED: Ipratropium/Albuterol Neb 3 ML IH ONE (23:03)
[2022-07-05 23:09] LABS: VBG HCO3 33 mEq/L (21-27); VBG PCO2 80 mmHg (41-51); VBG PH 7.23 pH Units (7.32-7.42); VBG PO2 64 mmHg (25-50)
[2022-07-05 23:19] LABS: Alanine Aminotransferase 21 Units/L (7-52); Albumin 3.9 g/dL (3.5-5.7); Albumin/Globulin Ratio 1.4 (1.1-2.2); Alkaline Phosphatase 94 Units/L (34-104); Aspartate Amino Transferase 13 Units/L (13-39); BUN/Creatinine Ratio 11 (6-26); Bilirubin,Total 0.2 mg/dL (0.3-1.0); Blood Urea Nitrogen 13 mg/dL (6-20); Calcium 9.3 mg/dL (8.6-10.3); Carbon Dioxide 31 mEq/L (23-29); Chloride 105 mEq/L (98-107); Globulin 2.8 g/dL (2.4-3.5); Glucose 106 mg/dL (70-105); Osmolality,Calculated 295 (280-300); Potassium 4.1 mEq/L (3.5-5.1); Sodium 142 mEq/L (136-145); Total Protein 6.7 g/dL (6.4-8.9); Troponin I < 0.03 ng/mL (< 0.04)
[2022-07-05 23:32] LABS: Bilirubin,Urine Negative (Negative); Blood,Urine Small (Negative); Clarity,Urine Clear (Clear); Color,Urine Light-Yellow (Yellow); Glucose,Urine (UA) Normal (Normal); Ketones,Urine Negative (Negative); Leukocyte Esterase,Urine Negative (Negative); Mucus,Urine Few per lpf (None-Few); Nitrite,Urine Negative (Negative); Protein,Urine 30 mg/dL (Neg-Trace); RBC,Urine 0-3 per hpf (0-3); Specific Gravity,Urine 1.013 (1.010-1.025); Squamous Epithelial Cell,Urine Few per hpf (None-Few); Urobilinogen,Urine Normal (Normal); WBC,Urine 0-3 per hpf (0-3)
[2022-07-05 23:39] LABS: Influenza A PCR Negative (Negative); Influenza B PCR Negative (Negative); Resp. Syncytial Virus PCR Negative (Negative)
[2022-07-05 23:41] LABS: SARS-CoV-2 by PCR (In House) Negative (Negative)
[2022-07-06] MEDS ORDERED: Ipratropium/Albuterol Neb 3 ML IH ONE (01:55)
[2022-07-06 02:28] LABS: VBG HCO3 33 mEq/L (21-27); VBG PCO2 82 mmHg (41-51); VBG PH 7.21 pH Units (7.32-7.42); VBG PO2 73 mmHg (25-50)
[2022-07-06] MEDS ORDERED: Ondansetron ODT 4 MG TAB.RAPDIS SL PRN (02:32)
[2022-07-06] MEDS ORDERED: Naloxone 0.4 MG/ML INJ IVP PRN (02:32)
[2022-07-06] MEDS ORDERED: Dextrose Gel 15 GM/37.5 ML TUBE PO PRN ×2 (02:36)
[2022-07-06] MEDS ORDERED: D5% in Water 1,000 ML IVC PRN (02:36)
[2022-07-06] MEDS ORDERED: *HR* Dextrose 50 % in Water (Syg) 50 ML SYRINGE IVP PRN (02:36)
[2022-07-06 02:53] LABS: Valproate 35 mcg/mL (50-100)
[2022-07-06] MEDS ORDERED: methylPREDNISolone 125 MG/2 ML VIAL ONE (03:23)
[2022-07-06] MEDS ORDERED: methylPREDNISolone 125 MG/2 ML VIAL IVP ONE (03:29)
[2022-07-06] MEDS ORDERED: Iopamidol - 370 500 ML MLS IVP ONE (03:29)
[2022-07-06 03:41] LABS: ABG Base Excess 1 mEq/L (-2 to 3); ABG HCO3 31 mEq/L (21-27); ABG Oxygen Saturation 83 % (95-98); ABG PCO2 77 mmHg (35-45); ABG PH 7.21 pH Units (7.32-7.45); ABG PO2 59 mmHg (85-104); ABG TCO2 33 mEq/L (20-26); Blood Gas Modality AVAPS; Blood Gas VT 600 cc
[2022-07-06] MEDS: Ipratropium/Albuterol Neb 3 ML IH SCH ×4 (04:35→22:44)
[2022-07-06] MEDS ORDERED: levETIRAcetam 1,000 MG in 0.9 % Sodium Chloride 100 ML IVPB ONE (05:00)
[2022-07-06 06:58] LABS: Hematocrit 43.1 % (37.5-50.1); Hemoglobin 12.9 g/dL (12.9-16.9); Mean Corpuscular HGB Conc 29.9 g/dL (31.6-35.5); Mean Corpuscular Hemoglobin 29.5 pg (28.0-33.3); Mean Corpuscular Volume 98.4 fL (83.0-100.0); Mean Platelet Volume 8.7 fL (9.4-12.4); Platelet Count 284 K/mcL (140-400); Red Blood Count 4.38 M/mcL (4.19-5.50); Red Cell Distribution Width 14.9 % (11.5-14.5)
[2022-07-06] MEDS ORDERED: Apixaban 5 MG TABLET PO SCH (07:00)
[2022-07-06 07:58] LABS: Calcium 9.3 mg/dL (8.6-10.3); Magnesium 2.2 mg/dL (1.6-2.6); Phosphorous 4.6 mg/dL (2.7-4.5); Potassium 4.4 mEq/L (3.5-5.1)
[2022-07-06 09:08] LABS: ABG Base Excess 3 mEq/L (-2 to 3); ABG HCO3 32 mEq/L (21-27); ABG Oxygen Saturation 94 % (95-98); ABG PCO2 68 mmHg (35-45); ABG PH 7.29 pH Units (7.32-7.45); ABG PO2 84 mmHg (85-104); ABG TCO2 35 mEq/L (20-26)
[2022-07-06] MEDS: Insulin LISPRO 300 UNITS/3 ML VIAL SUBQ SCH ×4 (09:54→19:58)
[2022-07-06] MEDS: OLANZapine 5 MG TAB.RAPDIS PO SCH ×2 (09:55→20:12)
[2022-07-06] MEDS: Apixaban 5 MG TABLET PO SCH ×2 (09:55→20:13)
[2022-07-06] MEDS: Divalproex (24 HR) 500 MG TABLET PO SCH ×2 (09:55→20:12)
[2022-07-06] MEDS: Divalproex (24 HR) 250 MG TABLET PO SCH ×2 (09:55→20:12)
[2022-07-06] MEDS: Melatonin 3 MG TABLET PO PRN (20:12)
[2022-07-06] MEDS: MethylPREDNISolone 40 MG/ML VIAL IVP SCH (20:13)
[2022-07-07] MEDS: Ipratropium/Albuterol Neb 3 ML IH SCH ×4 (04:50→21:26)
[2022-07-07] MEDS: MethylPREDNISolone 40 MG/ML VIAL IVP SCH ×3 (04:57→20:34)
[2022-07-07 05:15] LABS: ABG Base Excess 4 mEq/L (-2 to 3); ABG HCO3 33 mEq/L (21-27); ABG Oxygen Saturation 94 % (95-98); ABG PCO2 66 mmHg (35-45); ABG PO2 80 mmHg (85-104); ABG TCO2 35 mEq/L (20-26); Blood Gas Modality AVAPS; Blood Gas VT 600 cc
[2022-07-07] MEDS ORDERED: Valproic Acid INJ 1,000 MG in 0.9 % Sodium Chloride 100 ML IVPB ONE (07:16)
[2022-07-07] MEDS ORDERED: Hydrocortisone Acetate 25 MG RECTAL SUPPOSITORY RC PRN (07:23)
[2022-07-07] MEDS ORDERED: Carbamide Peroxide 150 DROP/15 ML BOTTLE BOTH EARS PRN (07:23)
[2022-07-07] MEDS: Insulin LISPRO 300 UNITS/3 ML VIAL SUBQ SCH ×4 (07:46→21:00)
[2022-07-07] MEDS ORDERED: Lactulose Oral Soln 20 GM/30 ML UDC PO PRN (07:52)
[2022-07-07] MEDS ORDERED: *HR* Heparin 5,000 UNIT/ML VIAL SQ SCH (08:00)
[2022-07-07 08:21] LABS: Basophils % 0.3 %; Eosinophils % 0.3 %; Hematocrit 43.3 % (37.5-50.1); Hemoglobin 13.2 g/dL (12.9-16.9); Immature Granulocytes % 1.1 % (0-4); Lymphocytes # 0.7 K/mcL (0.6-4.6); Lymphocytes % 6.5 %; Mean Corpuscular HGB Conc 30.5 g/dL (31.6-35.5); Mean Corpuscular Hemoglobin 29.5 pg (28.0-33.3); Mean Corpuscular Volume 96.7 fL (83.0-100.0); Mean Platelet Volume 8.9 fL (9.4-12.4); Monocytes # 0.3 K/mcL (0.0-1.3); Neutrophils # 9.5 K/mcL (1.6-8.9); Platelet Count 312 K/mcL (140-400); Red Blood Count 4.48 M/mcL (4.19-5.50); Red Cell Distribution Width 14.9 % (11.5-14.5); Segmented Neutrophils % 88.8 %; White Blood Count 10.7 K/mcL (4.3-11.1)
[2022-07-07 08:39] LABS: Calcium 9.9 mg/dL (8.6-10.3); Magnesium 2.1 mg/dL (1.6-2.6); Potassium 4.4 mEq/L (3.5-5.1)
[2022-07-07] MEDS: BuPROPion XL (24 HR) 150 MG TABLET PO SCH (09:43)
[2022-07-07] MEDS: OLANZapine 5 MG TAB.RAPDIS PO SCH (09:43)
[2022-07-07] MEDS: Divalproex (24 HR) 500 MG TABLET PO SCH (09:43)
[2022-07-07] MEDS: amLODIPine 5 MG TABLET PO SCH (09:44)
[2022-07-07] MEDS: Lithium Carbonate 300 MG CAPSULE PO SCH (09:44)
[2022-07-07] MEDS: Metoprolol XL (24 HR) Succ 50 MG TAB.ER.24H PO SCH (09:45)
[2022-07-07] MEDS: Apixaban 5 MG TABLET PO SCH (09:45)
[2022-07-07] MEDS: Divalproex (24 HR) 250 MG TABLET PO SCH (09:46)
[2022-07-07] MEDS: Budesonide/Formoterol 80/4.5 1 PUFF INH IH SCH ×2 (11:09→21:48)
[2022-07-07] MEDS ORDERED: Valproic Acid INJ 500 MG in 0.9 % Sodium Chloride 100 ML IVPB SCH (16:00)
[2022-07-07] MEDS ORDERED: Lithium Carbonate ER 450 MG TABLET.ER PO SCH (20:00)
[2022-07-07] MEDS: Melatonin 3 MG TABLET PO PRN (20:34)
[2022-07-08] MEDS: polyethylene glycoL 3350 17 GM POWD.PACK PO SCH ×2 (00:30→06:29)
[2022-07-08] MEDS: Divalproex (24 HR) 250 MG TABLET PO SCH ×2 (00:35→06:31)
[2022-07-08] MEDS: OXcarbazepine 150 MG TABLET PO SCH ×2 (00:35→06:30)
[2022-07-08] MEDS: calcium polycarbophiL 625 MG TABLET PO SCH ×2 (00:35→06:31)
[2022-07-08] MEDS: OLANZapine 5 MG TAB.RAPDIS PO SCH ×2 (00:35→06:30)
[2022-07-08] MEDS: Apixaban 5 MG TABLET PO SCH ×2 (00:36→06:31)
[2022-07-08] MEDS: Divalproex (24 HR) 500 MG TABLET PO SCH ×2 (00:37→06:31)
[2022-07-08 03:17] LABS: Basophils % 0.3 %; Eosinophils % 0.2 %; Hematocrit 40.8 % (37.5-50.1); Hemoglobin 12.6 g/dL (12.9-16.9); Immature Granulocytes % 1.1 % (0-4); Lymphocytes # 0.7 K/mcL (0.6-4.6); Lymphocytes % 6.3 %; Mean Corpuscular HGB Conc 30.9 g/dL (31.6-35.5); Mean Corpuscular Hemoglobin 29.6 pg (28.0-33.3); Mean Platelet Volume 9.1 fL (9.4-12.4); Monocytes # 0.5 K/mcL (0.0-1.3); Monocytes % 5.1 %; Neutrophils # 9.1 K/mcL (1.6-8.9); Platelet Count 300 K/mcL (140-400); Red Blood Count 4.25 M/mcL (4.19-5.50); Red Cell Distribution Width 14.8 % (11.5-14.5); White Blood Count 10.5 K/mcL (4.3-11.1)
[2022-07-08 03:28] LABS: BUN/Creatinine Ratio 19 (6-26); Blood Urea Nitrogen 18 mg/dL (6-20); Calcium 9.7 mg/dL (8.6-10.3); Carbon Dioxide 31 mEq/L (23-29); Chloride 104 mEq/L (98-107); Glucose 197 mg/dL (70-105); Osmolality,Calculated 299 (280-300); Potassium 4.4 mEq/L (3.5-5.1); Sodium 141 mEq/L (136-145)
[2022-07-08] MEDS: Ipratropium/Albuterol Neb 3 ML IH SCH ×3 (04:57→15:52)
[2022-07-08] MEDS: MethylPREDNISolone 40 MG/ML VIAL IVP SCH ×2 (05:02→11:37)
[2022-07-08] MEDS: BuPROPion XL (24 HR) 150 MG TABLET PO SCH (06:31)
[2022-07-08] MEDS: Lithium Carbonate 300 MG CAPSULE PO SCH (06:31)
[2022-07-08] MEDS ORDERED: Folic Acid 1 MG TABLET PO SCH (07:00)
[2022-07-08] MEDS: Insulin LISPRO 300 UNITS/3 ML VIAL SUBQ SCH ×2 (09:38→11:37)
[2022-07-08] MEDS: amLODIPine 5 MG TABLET PO SCH (09:38)
[2022-07-08] MEDS: Metoprolol XL (24 HR) Succ 50 MG TAB.ER.24H PO SCH ×2 (09:39→11:37)
[2022-07-08] MEDS: Budesonide/Formoterol 80/4.5 1 PUFF INH IH SCH (10:56)
[2022-07-08 11:27] VITALS: BP 154/89; TEMP 98.6
[2022-07-08 13:03] VITALS: PULSE 82
[2022-07-08 13:08] VITALS: O2SAT 91
== END 2022-07-08 16:40 | DRG 189 ==
LOC: 2NNU 20:30 → EMEROOARM 20:30 → SUATTDRO 07-06 02:16 → 2NNU 07-06 02:41 → SUATTDRO 07-07 08:07
PROVIDERS: ADMIT Internal Medicine; ATTEND Hospitalist